=== PATIENT | male | born 1950 | race Caucasian/White ===

== ENCOUNTER → 2016-03-08 | Outpatient (CLI) | payer MEDICARE ==
[2016-03-08 09:22] LABS: HEMATOCRIT 38.4 % (37.9-51.0); HEMOGLOBIN 13.2 g/dL (13.5-17.0); HGB HCT DIFFERENCE 1.2; MEAN CORPUSCULAR HEMOGLOBIN 30.7 pg (27.0-33.4); MEAN CORPUSCULAR HGB CONC 34.3 g/dL (32.0-36.0); MEAN CORPUSCULAR VOLUME 90 fl (80-97); RED CELL DISTRIBUTION WIDTH 14.9 % (11.5-14.0); WHITE BLOOD COUNT 10.8 10^3/uL (4.0-10.5)
[2016-03-08 09:49] LABS: ALANINE AMINOTRANSFERASE 15 U/L (21-72); ALBUMIN 3.3 g/dL (3.5-5.0); ALKALINE PHOSPHATASE 99 U/L (38-126); ANION GAP 11 (5-19); ASPARTATE AMINO TRANSFERASE 15 U/L (17-59); BILIRUBIN,TOTAL 0.3 mg/dL (0.2-1.3); BLOOD UREA NITROGEN 22 mg/dL (7-20); CARBON DIOXIDE 29 mmol/L (22-30); CHLORIDE 100 mmol/L (98-107); CHOLESTEROL 113.33 mg/dL (0-200); CREATININE RESULT 0.72 mg/dL (0.52-1.25); Direct HDL 38 mg/dL (>40); GLUCOSE 109 mg/dL (75-110); POTASSIUM 4.1 mmol/L (3.6-5.0); TOTAL PROTEIN 6.6 g/dL (6.3-8.2); TRIGLYCERIDES 55 mg/dL (<150)
[2016-03-08 10:00] LABS: DIRECT LDL 64 mg/dL (<100)
== END ==
LOC: OD 08:00
PROVIDERS: ATTEND Nurse Practitioner
DX: N39.0 Urinary tract infection, site not specified (principal); Z79.899 Other long term (current) drug therapy; E11.9 Type 2 diabetes mellitus without complications; I69.90 Unspecified sequelae of unspecified cerebrovascular disease; G81.91 Hemiplegia, unspecified affecting right dominant side; I10 Essential (primary) hypertension; E78.00 Pure hypercholesterolemia, unspecified; N40.0 Benign prostatic hyperplasia without lower urinary tract symptoms; K21.9 Gastro-esophageal reflux disease without esophagitis
CPT/HCPCS: 36415; 80053; 80061; 82306; 82607; 83036; 84443; 85027; 87086; 87088; 87186

== ENCOUNTER 2016-05-08 15:47 | Inpatient (IN) | payer MEDICARE, OTHER ==
--- NOTE | 2016-05-08 15:58 | ER Document Report ---
ED Medical Screen (RME) - General Stated Complaint: RIGHT GREAT TOE REDNESS, SWELLING Notes: Patient here because of right great toe infection. Has been seeing a lacquer maker for the last several months, she has working on it but is not getting any better. Referred to the ER. She states wound is draining. Patient is type II diabetic. No reported fevers. Patient states he had an MRI on his foot last week. Thinks the infection is down to the bone. I have greeted and performed a rapid initial assessment of this patient. A comprehensive ED assessment and evaluation of the patient, analysis of test results and completion of the medical decision making process will be conducted by additional ED providers. TRAVEL OUTSIDE OF THE [place] IN LAST 30 DAYS: No - Related Data Allergies/Adverse Reactions: norepinephrine bitartrate [From Levophed Bitartrate] Adverse Reaction ( Intermediate, Verified 05/08/16 15:57) Bradycardia Past Medical History - Past Medical History Cardiac Medical History: Reports: Hx Coronary Artery Disease - HIGH CHOLESTEROL , Hx Hypercholesterolemia, Hx Hypertension Denies: Hx Heart Attack Pulmonary Medical History: Denies: Hx Asthma, Hx Bronchitis, Hx COPD, Hx Pneumonia Neurological Medical History: Reports: Hx Cerebrovascular Accident - 2006, right sided hemiparesis. Denies: Hx Seizures Endocrine Medical History: Reports: Hx Diabetes Mellitus Type 2 GI Medical History: Reports: Hx Gastroesophageal Reflux Disease Musculoskeltal Medical History: Reports Hx Arthritis Psychiatric Medical History: Denies: Hx Depression - patient states he does not have this history Infectious Medical History: Reports: Hx MRSA Past Surgical History: Reports: Hx Orthopedic Surgery - right foot - Immunizations Hx Diphtheria, Pertussis, Tetanus Vaccination: Yes Physical Exam - Vital signs Vitals: Temp Pulse Resp BP Pulse Ox 99.0 F 70 16 110/63 93 05/08/16 15:53 05/08/16 15:53 05/08/16 15:53 05/08/16 15:53 05/08/16 15:53 - General General appearance: Appears well, Alert In distress: None Course - Vital Signs Vital signs: Temp Pulse Resp BP Pulse Ox 99.0 F 70 16 110/63 93 05/08/16 15:53 05/08/16 15:53 05/08/16 15:53 05/08/16 15:53 05/08/16 15:53
[2016-05-08 16:37] LABS: ABSOLUTE BASOPHILS # (AUTO) 0.1 10^3/uL (0.0-0.2); ABSOLUTE EOSINOPHILS # (AUTO) 0.3 10^3/uL (0.0-0.6); ABSOLUTE LYMPHOCYTES (AUTO) 2.3 10^3/uL (0.5-4.7); ABSOLUTE MONOCYTES (AUTO) 0.8 10^3/uL (0.1-1.4); ABSOLUTE NEUT (AUTO) 8.2 10^3/uL (1.7-8.2); BASOPHILS % (AUTO) 0.5 % (0-2); EOSINOPHILS % (AUTO) 2.8 % (0-6); HEMATOCRIT 37.2 % (37.9-51.0); HEMOGLOBIN 12.6 g/dL (13.5-17.0); HGB HCT DIFFERENCE 0.6; LYMPHOCYTES % (AUTO) 19.9 % (13-45); MEAN CORPUSCULAR HEMOGLOBIN 31.1 pg (27.0-33.4); MEAN CORPUSCULAR VOLUME 92 fl (80-97); MONOCYTES % (AUTO) 6.8 % (3-13); RED BLOOD COUNT 4.06 10^6/uL (4.35-5.55); RED CELL DISTRIBUTION WIDTH 14.7 % (11.5-14.0); WHITE BLOOD COUNT 11.7 10^3/uL (4.0-10.5)
[2016-05-08 16:46] LABS: APPEARANCE,URINE CLOUDY; BILIRUBIN,URINE NEGATIVE (NEGATIVE); GLUCOSE, URINE NEGATIVE (NEGATIVE); KETONES,URINE NEGATIVE (NEGATIVE); LEUKOCYTE ESTERASE,URINE LARGE (NEGATIVE); NITRITE,URINE POSITIVE (NEGATIVE); PROTEIN,URINE NEGATIVE (NEGATIVE); URINE SPECIFIC GRAVITY 1.014; UROBILINOGEN,URINE NEGATIVE mg/dL (<2.0)
[2016-05-08 17:00] LABS: ALANINE AMINOTRANSFERASE 29 U/L (21-72); ALKALINE PHOSPHATASE 76 U/L (38-126); ANION GAP 11 (5-19); ASPARTATE AMINO TRANSFERASE 17 U/L (17-59); BILIRUBIN,TOTAL 0.5 mg/dL (0.2-1.3); BLOOD UREA NITROGEN 24 mg/dL (7-20); CALCIUM 9.7 mg/dL (8.4-10.2); CARBON DIOXIDE 26 mmol/L (22-30); CHLORIDE 101 mmol/L (98-107); CREATININE RESULT 0.77 mg/dL (0.52-1.25); GLUCOSE 163 mg/dL (75-110); POTASSIUM 4.6 mmol/L (3.6-5.0); TOTAL PROTEIN 7.2 g/dL (6.3-8.2)
--- NOTE | 2016-05-08 18:42 | PDOC H&P ---
History of Present Illness Admission Date/PCP: 05/08/16 16:30 WIN GALLEGOS NP Patient complains of: Osteomyelitis right big toe. Diabetes History of Present Illness: FRANCHESKA SANTIAGO is a 66 year old male Patient of Dr. Cao sustainable design coordinator at [facility] in [place], was sent as a direct admission for IV antibiotics and amputation of his right big toe Patient was treated without improvement as an outpatient Culture of the wound grew Pseudomonas which was lema sensitive MRI of the right foot showed osteomyelitis of the right big toe Patient was admitted to medical unit for IV antibiotics and surgical consult Past Medical History Cardiac Medical History: Reports: Coronary Artery Disease - HIGH CHOLESTEROL, Hyperlipidema, Hypertension Denies: Myocardial Infarction Pulmonary Medical History: Denies: Asthma, Bronchitis, Chronic Obstructive Pulmonary Disease (COPD), Pneumonia Neurological Medical History: Denies: Seizures Endocrine Medical History: Reports: Diabetes Mellitus Type 2 GI Medical History: Reports: Gastroesophageal Reflux Disease Musculoskeltal Medical History: Reports: Arthritis Psychiatric Medical History: Denies: Depression - patient states he does not have this history Hematology: Denies: Anemia Infectious Medical History: Reports: Methicillin-Resistant Staph Aureus Past Surgical History Past Surgical History: Reports: Orthopedic Surgery - right foot Social History Smoking Status: Former Smoker - Stopped in 1971 Frequency of Alcohol Use: None Hx Recreational Drug Use: No Drugs: None Hx Prescription Drug Abuse: No - Advance Directive Resuscitation Status: Do Not Resuscitate Surrogate healthcare decision maker:: His daughter Carolann Family History Family History: Reviewed & Not Pertinent Parental Family History Reviewed: Yes Children Family History Reviewed: Yes Sibling(s) Family History Reviewed.: Yes Medication/Allergy Allergies/Adverse Reactions: norepinephrine bitartrate [From Levophed Bitartrate] Adverse Reaction ( Intermediate, Verified 05/08/16 15:57) Bradycardia Review of Systems Constitutional: ABSENT: chills, fever(s), headache(s), weight gain, weight loss Eyes: ABSENT: visual disturbances Ears: ABSENT: hearing changes Cardiovascular: ABSENT: chest pain, dyspnea on exertion, edema, orthropnea, palpitations Respiratory: ABSENT: cough, hemoptysis Gastrointestinal: ABSENT: abdominal pain, constipation, diarrhea, hematemesis, hematochezia, nausea, vomiting Genitourinary: ABSENT: dysuria, hematuria Musculoskeletal: PRESENT: other - Redness of the right foot Ulcerated area under the right draining pus. ABSENT: joint swelling Integumentary: ABSENT: rash, wounds Neurological: ABSENT: abnormal gait, abnormal speech, confusion, dizziness, focal weakness, syncope Psychiatric: ABSENT: anxiety, depression, homidical ideation, suicidal ideation Endocrine: ABSENT: cold intolerance, heat intolerance, polydipsia, polyuria Hematologic/Lymphatic: ABSENT: easy bleeding, easy bruising Physical Exam Vital Signs: Temp Pulse Resp BP Pulse Ox 99.0 F 70 16 110/63 93 05/08/16 15:53 05/08/16 15:53 05/08/16 15:53 05/08/16 15:53 05/08/16 15:53 General appearance: PRESENT: no acute distress, cooperative, thin, other - Pale looking Head exam: PRESENT: atraumatic, normocephalic Eye exam: PRESENT: conjunctiva pink, EOMI, PERRLA. ABSENT: scleral icterus Ear exam: PRESENT: normal external ear exam Mouth exam: PRESENT: moist, tongue midline Neck exam: ABSENT: carotid bruit, JVD, lymphadenopathy, thyromegaly Respiratory exam: PRESENT: clear to auscultation elias. ABSENT: rales, rhonchi, wheezes Cardiovascular exam: PRESENT: RRR. ABSENT: diastolic murmur, rubs, systolic murmur Pulses: PRESENT: normal dorsalis pedis pul Vascular exam: PRESENT: normal capillary refill GI/Abdominal exam: PRESENT: normal bowel sounds, soft. ABSENT: distended, guarding, mass, organolmegaly, rebound, tenderness Rectal exam: PRESENT: deferred Extremities exam: PRESENT: full ROM, other - Right big toe Small ulcerated area on the volar aspect of the distal phalanx Redness of the foot dorsum of the foot and toes Skin is warm to touch No lymphangitic streaks. ABSENT: calf tenderness, clubbing, pedal edema Neurological exam: PRESENT: alert, awake, oriented to person, oriented to place , oriented to time, oriented to situation, CN II-XII grossly intact. ABSENT: motor sensory deficit Psychiatric exam: PRESENT: appropriate affect, normal mood. ABSENT: homicidal ideation, suicidal ideation Skin exam: PRESENT: dry, intact, warm. ABSENT: cyanosis, rash Results Laboratory Results: 05/08/16 05/08/16 05/08/16 16:00 16:00 16:05 WBC 11.7 H RBC 4.06 L Hgb 12.6 L Hct 37.2 L RDW 14.7 H BUN 24 H Glucose 163 H Urine Nitrite POSITIVE H Ur Leukocyte Esterase LARGE H Urine Ascorbic Acid 40 H Assessment & Plan - Diagnosis (1) Osteomyelitis Qualifiers: Osteomyelitis location: foot Laterality: right Is this a current diagnosis for this admission?: Yes (2) Cellulitis Qualifiers: Laterality: right Is this a current diagnosis for this admission?: Yes (3) Diabetic foot ulcer Qualifiers: Diabetic foot ulcer location: unspecified part of foot Is this a current diagnosis for this admission?: Yes (4) Type 2 diabetes mellitus with diabetic autonomic (poly)neuropathy Qualifiers: Diabetes mellitus senior care insulin use: without long term acute care registered nurse use Qualified Code(s): E11.43 - Type 2 diabetes mellitus with diabetic autonomic ( poly)neuropathy Is this a current diagnosis for this admission?: Yes - Time Time Spent with patient: Review of the culture of the ulcer showed Pseudomonas that was pansensitive We will start the patient on Zosyn IV Surgical evaluation was obtained Dr. Cage evaluated the patient Amputation of the big toe will be scheduled for tomorrow morning Patient will be placed on Accu-Chek before meals at bedtime and insulin coverage We initiated IV fluids as well EKG and chest x-ray were ordered Time Spent: 50 to 70 Minutes - Inpatient Certification Based on my medical assessment, after consideration of the patient's comorbidities, presenting symptoms, or acuity I expect that the services needed warrant INPATIENT care.: Yes I certify that my determination is in accordance with my understanding of Medicare's requirements for reasonable and necessary INPATIENT services [42 CFR 412.3e].: Yes Medical Necessity: Failure to Improve With Outpatient Therapy, Need for IV Antibiotics, Need for Surgery
--- NOTE | 2016-05-08 19:48 | CONSULTATION REPORT E ---
Consultation Report NAME: FRANCHESKA SANTIAGO : 1950 AGE: 66Y DATE: 05/08/2016 405 A TO: FABIO MARINELLI M.D. FROM: TAYLOR HUANG M.D. Requesting Physician REASON FOR REFERRAL: Infection of the right foot, first digit. HISTORY OF PRESENT ILLNESS: The patient is a 66-year-old male with diabetes and hypertension present with a 3-month history of a nonhealing wound on the right foot first digit. He was treated for Pseudomonas infection being on Levaquin. He recently had an MRI which shows osteomyelitis in the first digit, first and second phalanges. There is also possible osteomyelitis in the second digit, although he has no wounds being present here. He is ambulatory. He has had a previous infection in the left foot first digit undergoing amputation in the past. He was seen today by the crocodile farmer and because of increasing cellulitis was referred to the emergency room. PAST SURGICAL HISTORY: Left foot first digit amputation. PAST MEDICAL HISTORY: Medical problems: 1. Diabetes. 2. Hypertension. 3. Hyperlipidemia. 4. Arthritis. 5. Gastroesophageal reflux disease. MEDICATIONS: The patient's family will bring in the medication list. ALLERGIES: None. SOCIAL HISTORY: The patient has a caregiver. HABITS: The patient quit smoking in the past, along with alcohol. FAMILY HISTORY: Father with history of cancer of the palate of the mouth. REVIEW OF SYSTEMS: MUSCULOSKELETAL: Infection of the right foot first digit along with discomfort. NEUROLOGICAL: Peripheral neuropathy. GASTROINTESTINAL: Gastroesophageal reflux disease. A 12-point review of systems was reviewed with pertinent positives discussed. PHYSICAL EXAMINATION: VITAL SIGNS: Temperature is 97.6. Pulse is 63. GENERAL: The patient is lying in bed. He is not in any distress. HEENT: Eyes nonicteric. NECK: No lymphadenopathy. HEART: Regular. LUNGS: Clear. ABDOMEN: Soft, nontender. EXTREMITIES: Right foot first digit: He has a nonhealing wound being present with cellulitis extending into the forefoot. The rest of the digits appear to be without abnormality. He has decreased sensation, although he is able to feel pain in the first digit. He has a palpable dorsalis pedis and posterior tibial artery. He does appear to have motor function, although slightly decreased. He has the amputation of the left foot first digit. NEUROLOGICAL: Peripheral neuropathy. He is awake, alert, cooperative, and appears to answer questions fully. DIAGNOSTIC DATA: White blood cell count 11.7. ASSESSMENT: 1. Infection of the right foot first digit, having osteomyelitis and overlying cellulitis. I recommend he undergo amputation of the first digit, leaving the wound open. He will need to come back to surgery several days later once the cellulitis has resolved in order to finally close the wound. The risks and possible complications of these procedures have been discussed with him. He accepts the risk and wishes to proceed. 2. Diabetes, managed by the hospitalist. PLAN: 1. IV antibiotics. He has grown out Pseudomonas and recommend Zosyn at the current time. 2. Open amputation of the right foot first digit on 05/09/2016. DICTATING PHYSICIAN: FABIO MARINELLI M.D. [id number] PHY#: [id number] ID: [id number] JOB#: [id number] ACCT: [id number] cc:FABIO MARINELLI M.D. >
[2016-05-08] MEDS: PIPERACILLIN SODIUM/TAZOBACTAM 3.375 GM in NORMAL SALINE 100 ML IV SCH (22:20)
[2016-05-08] MEDS: OXYCODONE-ACETAMINOPHEN 5-325 MG TABLET PO PRN (22:20)
[2016-05-08] MEDS: NORMAL SALINE 1000 ML 1,000 ML IV PRN (22:20)
[2016-05-09] MEDS: PIPERACILLIN SODIUM/TAZOBACTAM 3.375 GM in NORMAL SALINE 100 ML IV SCH ×4 (02:14→20:26)
[2016-05-09] MEDS: OXYCODONE-ACETAMINOPHEN 5-325 MG TABLET PO PRN ×2 (03:24→22:45)
[2016-05-09 05:13] LABS: PROTHROMBIN TIME 14.4 SEC (11.4-15.4)
--- NOTE | 2016-05-09 07:53 | EKG REPORT ---
SEVERITY:- ABNORMAL ECG - SINUS RHYTHM MULTIFORM VENTRICULAR PREMATURE COMPLEXES : Confirmed by: Tayla Interiano MD 09-May-2016 07:52:31
[2016-05-09] MEDS: NORMAL SALINE 1000 ML 1,000 ML IV PRN (13:45)
[2016-05-09] MEDS ORDERED: MIDAZOLAM 2 MG/2 ML INJ ONE (17:21)
[2016-05-09] MEDS ORDERED: ACETAMINOPHEN 100 ML IV ONE (17:21)
[2016-05-09] MEDS ORDERED: PROPOFOL INJ 200 MG/20 ML VIAL IV ONE (17:21)
[2016-05-09] MEDS ORDERED: LIDOCAINE 1%/EPINEPHRINE INJ 20 ML VIAL ONE (18:01)
[2016-05-09] MEDS ORDERED: FENTANYL CITRATE INJ/PF 100 MCG/2 ML AMPUL ONE (18:05)
--- NOTE | 2016-05-09 18:17 | PDOC PROGRESS REPORT ---
Subjective Progress Note for:: 05/09/16 Subjective:: Patient is doing well He has minimal pain in his lower extremity The redness on the foot has decreased He did change his CODE STATUS for full code He is scheduled for surgery today Physical Exam Vital Signs: Temp Pulse Resp BP Pulse Ox 98.2 F 64 16 122/38 L 99 05/09/16 10:49 05/09/16 10:49 05/09/16 10:49 05/09/16 10:49 05/09/16 07:29 Intake & Output 05/08/16 05/09/16 05/10/16 00:59 00:59 00:59 Intake Total 480 1100 Output Total 2 Balance 478 1100 Weight 109.8 kg 113 kg General appearance: PRESENT: no acute distress Head exam: PRESENT: atraumatic, normocephalic Eye exam: PRESENT: conjunctiva pink, EOMI, PERRLA. ABSENT: scleral icterus Neck exam: ABSENT: carotid bruit, JVD, lymphadenopathy, thyromegaly Respiratory exam: PRESENT: clear to auscultation elias. ABSENT: rales, rhonchi, wheezes Cardiovascular exam: PRESENT: RRR. ABSENT: diastolic murmur, rubs, systolic murmur Pulses: PRESENT: normal dorsalis pedis pul GI/Abdominal exam: PRESENT: normal bowel sounds, soft. ABSENT: distended, guarding, mass, organolmegaly, rebound, tenderness Extremities exam: PRESENT: other - Right foot decreased redness Redness confined to the PICU after minimal drainage from the ulceration Results Impressions: Chest X-Ray 05/09/16 06:00 IMPRESSION: NO ACUTE RADIOGRAPHIC FINDING IN THE CHEST. Assessment & Plan - Diagnosis (1) Osteomyelitis Qualifiers: Osteomyelitis location: foot Laterality: right Is this a current diagnosis for this admission?: Yes (2) Cellulitis Qualifiers: Laterality: right Is this a current diagnosis for this admission?: Yes (3) Diabetic foot ulcer Qualifiers: Diabetic foot ulcer location: unspecified part of foot Is this a current diagnosis for this admission?: Yes (4) Type 2 diabetes mellitus with diabetic autonomic (poly)neuropathy Qualifiers: Diabetes mellitus [facility] insulin use: without terminal clerk use Qualified Code(s): E11.43 - Type 2 diabetes mellitus with diabetic autonomic ( poly)neuropathy Is this a current diagnosis for this admission?: Yes - Time Time Spent with patient: Continue same management ; patient is scheduled for toe amputation today Time Spent with patient: 15-24 minutes
--- NOTE | 2016-05-09 19:33 | OPERATIVE REPORT E ---
Operative Report NAME: FRANCHESKA SANTIAGO : 1950 AGE: 66Y DATE OF SURGERY: 05/09/2016 ROOM: 405 PREOPERATIVE DIAGNOSIS: Nonhealing ulcer with infection, right foot, 1st digit, plantar surface with osteomyelitis. POSTOPERATIVE DIAGNOSIS: Nonhealing ulcer with infection, right foot, 1st digit, plantar surface with osteomyelitis. OPERATION: Amputation of right foot, 1st digit. SURGEON: FABIO MARINELLI M.D. ANESTHESIA: IV sedation with local. INDICATION FOR PROCEDURE: The patient is a 66-year-old male with diabetes who presents with a nonhealing wound on the right foot, 1st digit, that has been followed by podiatry. He now has developed cellulitis in the toe along with elevated white blood cell count. Recent MRI of the foot showed osteomyelitis in the bone. Cultures had grown out Pseudomonas which he has been treated adequately with IV antibiotics currently. The cellulitis has improved significantly where the amputation will be able to be performed with skin closure across noninfected skin. FINDINGS OF PROCEDURE: The patient underwent amputation of the right foot 1st digit. He had osteomyelitis in the 1st and proximal portion of the proximal digit right foot. He underwent amputation across the proximal portion of the proximal phalanx, right foot 1st digit. PROCEDURE: After informed consent was obtained, the patient was taken to the operating room and placed in a supine position. IV sedation was given. The patient's right foot was then prepped and draped in the usual sterile fashion. A digital block was then performed with 1% lidocaine with epinephrine. A fishmouth incision was then made in the skin across the proximal phalanx with the skin uninvolved with cellulitis. The incision was then deepened down to the bone using an elevator. The surrounding tissue was then removed from the bone and a bone cutter was then used to amputate the proximal phalanx proximally. A rongeur was then used to remove any rough edges. The wound was irrigated. Hemostasis was obtained using electrocautery. The anterior and posterior flaps were then brought together in the mid portion using an interrupted a #3-0 Vicryl suture in the subcutaneous tissue. The skin incisions were closed using interrupted #3-0 nylon vertical mattress sutures. A dry dressing was then applied. The patient was then awakened and taken from the procedure room in stable condition. ESTIMATED BLOOD LOSS: Less than 5 cc. COMPLICATIONS: None. CONDITION: The patient at the end of the procedure was stable. SPECIMENS: Right foot 1st digit. CLASSIFICATION OF WOUND: Clean-contaminated. DICTATING PHYSICIAN: FABIO MARINELLI M.D. [id number] PHY#: [id number] ID: [id number] JOB#: [id number] ACCT: [id number] cc:FABIO MARINELLI M.D. > MTDD
[2016-05-10] MEDS: PIPERACILLIN SODIUM/TAZOBACTAM 3.375 GM in NORMAL SALINE 100 ML IV SCH ×4 (02:46→21:26)
[2016-05-10] MEDS: OXYCODONE-ACETAMINOPHEN 5-325 MG TABLET PO PRN ×2 (08:50→13:55)
--- NOTE | 2016-05-10 11:37 | PDOC PROGRESS REPORT ---
Subjective Progress Note for:: 05/10/16 Subjective:: No complaints. Physical Exam Vital Signs: Temp Pulse Resp BP Pulse Ox 98.4 F 25 L 20 129/45 H 98 05/10/16 07:30 05/10/16 07:30 05/10/16 07:30 05/10/16 07:30 05/10/16 07:30 Intake & Output 05/09/16 05/10/16 05/11/16 06:59 06:59 06:59 Intake Total 1580 1740 750 Output Total 2 212 Balance 1578 1528 750 Weight 113 kg 112.8 kg Extremities exam: PRESENT: other - Right great toe amputation site clean dry and intact but there is diffuse erythema in the surrounding area. There is no drainage. There is no fluctuance. Results Impressions: Chest X-Ray 05/09/16 06:00 IMPRESSION: NO ACUTE RADIOGRAPHIC FINDING IN THE CHEST. Assessment & Plan - Diagnosis (1) Diabetic foot ulcer Qualifiers: Diabetic foot ulcer location: unspecified part of foot Is this a current diagnosis for this admission?: Yes (2) Osteomyelitis Qualifiers: Osteomyelitis location: foot Laterality: right Is this a current diagnosis for this admission?: YesPlan: Status post right great toe amputation. There is surrounding erythema but the wound is clean dry and intact. Will continue IV antibiotics. Keep an eye on the wound.
[2016-05-10] MEDS: GABAPENTIN 300 MG CAPSULE PO SCH ×2 (13:56→21:26)
--- NOTE | 2016-05-10 15:39 | PDOC PROGRESS REPORT ---
Subjective Progress Note for:: 05/10/16 - he is to be taken down to the discharge planning 16 awaiting her arrival Subjective:: Patient is complaining of pain in his right foot right leg No fever no chills No nausea no vomiting Physical Exam Vital Signs: Temp Pulse Resp BP Pulse Ox 98.4 F 25 L 20 129/45 H 98 05/10/16 07:30 05/10/16 07:30 05/10/16 07:30 05/10/16 07:30 05/10/16 07:30 Intake & Output 05/09/16 05/10/16 05/11/16 00:59 00:59 00:59 Intake Total 480 2460 1130 Output Total 2 211 1 Balance 478 2249 1129 Weight 109.8 kg 112.8 kg 112.8 kg General appearance: PRESENT: no acute distress, well-developed, well-nourished, other - Looks pale Head exam: PRESENT: atraumatic, normocephalic Eye exam: PRESENT: conjunctiva pink, EOMI, PERRLA. ABSENT: scleral icterus Ear exam: PRESENT: normal external ear exam Mouth exam: PRESENT: moist, tongue midline Neck exam: ABSENT: carotid bruit, JVD, lymphadenopathy, thyromegaly Respiratory exam: PRESENT: clear to auscultation elias. ABSENT: rales, rhonchi, wheezes Cardiovascular exam: PRESENT: RRR. ABSENT: diastolic murmur, rubs, systolic murmur Pulses: PRESENT: normal dorsalis pedis pul Vascular exam: PRESENT: normal capillary refill GI/Abdominal exam: PRESENT: normal bowel sounds, soft. ABSENT: distended, guarding, mass, organolmegaly, rebound, tenderness Rectal exam: PRESENT: deferred Extremities exam: PRESENT: full ROM. ABSENT: calf tenderness, clubbing, pedal edema Neurological exam: PRESENT: alert, awake, oriented to person, oriented to place , oriented to time, oriented to situation, CN II-XII grossly intact. ABSENT: motor sensory deficit Psychiatric exam: PRESENT: appropriate affect, normal mood. ABSENT: homicidal ideation, suicidal ideation Skin exam: PRESENT: dry, intact, warm. ABSENT: cyanosis, rash Results Impressions: Chest X-Ray 05/09/16 06:00 IMPRESSION: NO ACUTE RADIOGRAPHIC FINDING IN THE CHEST. Assessment & Plan - Diagnosis (1) Osteomyelitis Qualifiers: Osteomyelitis location: foot Laterality: right Is this a current diagnosis for this admission?: Yes (2) Cellulitis Qualifiers: Laterality: right Is this a current diagnosis for this admission?: Yes (3) Diabetic foot ulcer Qualifiers: Diabetic foot ulcer location: unspecified part of foot Is this a current diagnosis for this admission?: Yes (4) Type 2 diabetes mellitus with diabetic autonomic (poly)neuropathy Qualifiers: Diabetes mellitus prison insulin use: without exterminator termite use Qualified Code(s): E11.43 - Type 2 diabetes mellitus with diabetic autonomic ( poly)neuropathy Is this a current diagnosis for this admission?: Yes - Time Time Spent with patient: Patient is status post amputation of the big toe His course so far is uneventful Continue the present management Increase pain medications we will give intermittent doses of morphine Time Spent with patient: 25-34 minutes
[2016-05-10] MEDS: TAMSULOSIN HCL 0.4 MG CAP.SR.24H PO SCH (17:14)
[2016-05-10] MEDS: ASPIRIN 81 MG TABLET, CHEWABLE PO SCH (21:26)
[2016-05-10] MEDS: ATORVASTATIN CALCIUM 20 MG TABLET PO SCH (21:26)
[2016-05-10] MEDS: HYDROCODONE/ACETAMINOPHEN 7.5-325 MG TABLET PO PRN (21:30)
[2016-05-11] MEDS: PIPERACILLIN SODIUM/TAZOBACTAM 3.375 GM in NORMAL SALINE 100 ML IV SCH ×3 (04:19→14:53)
[2016-05-11] MEDS: GABAPENTIN 300 MG CAPSULE PO SCH ×3 (05:34→22:23)
[2016-05-11] MEDS: LANSOPRAZOLE 15 MG TAB.RAP.DR PO SCH (05:34)
[2016-05-11] MEDS: LISINOPRIL 10 MG TABLET PO SCH (10:27)
[2016-05-11] MEDS: POLYETHYLENE GLYCOL 3350 POWDER 17 GM/1 PACKET PO SCH (10:27)
[2016-05-11] MEDS: FERROUS SULFATE 325 MG TABLET PO SCH (10:33)
--- NOTE | 2016-05-11 11:48 | PROGRESS NOTE E ---
Progress Note NAME: FRANCHESKA SANTIAGO : 1950 AGE: 66Y DATE: 05/11/2016 ROOM: 405 Right great toe amputation was examined. It was noted to be more erythematous according to the nurse. Denies any pains or tenderness. There is erythema surrounding the wound extending to about an inch and a half surrounding it. The wound itself looks clean and dry and there is fairly good capillary refill around it. However, there is a small area of duskiness right on top of the amputated bone. Because of this, I removed all of the sutures to see if we can prevent a full ischemia or infection. All the sutures were removed and the wound appeared to be intact. A small amount of bloody drainage on one of the suture sites, which appears to be a good sign. I told the nurses to keep the wound dry and avoid pressure on the right heel to prevent any pressure sore developing. I was able to feel a pulse on a right posterior tibial artery and the foot itself is nice and warm. DICTATING PHYSICIAN: KRISTOFER LOPEZ M.D. [id number] PHY#: [id number] ID: [id number] JOB#: [id number] ACCT: [id number] cc: >
--- NOTE | 2016-05-11 15:57 | PDOC PROGRESS REPORT ---
Subjective Progress Note for:: 05/11/16 Subjective:: Patient is feeling well but the right big toe is now extremely red and swollen He has no severe pain no fever no chills He remains hemodynamically stable Physical Exam Vital Signs: Temp Pulse Resp BP Pulse Ox 97.4 F 56 L 16 127/62 H 97 05/11/16 10:00 05/11/16 10:00 05/11/16 10:00 05/11/16 10:00 05/11/16 10:00 Intake & Output 05/10/16 05/11/16 05/12/16 00:59 00:59 00:59 Intake Total 2460 2090 400 Output Total 211 1 Balance 2249 2089 400 Weight 112.8 kg 112.8 kg 113.5 kg General appearance: PRESENT: no acute distress, well-developed, well-nourished Head exam: PRESENT: atraumatic, normocephalic Eye exam: PRESENT: conjunctiva pink, EOMI, PERRLA. ABSENT: scleral icterus Ear exam: PRESENT: normal external ear exam Mouth exam: PRESENT: moist, tongue midline Neck exam: ABSENT: carotid bruit, JVD, lymphadenopathy, thyromegaly Respiratory exam: PRESENT: clear to auscultation elias. ABSENT: rales, rhonchi, wheezes Cardiovascular exam: PRESENT: RRR. ABSENT: diastolic murmur, rubs, systolic murmur Pulses: PRESENT: normal dorsalis pedis pul Vascular exam: PRESENT: normal capillary refill GI/Abdominal exam: PRESENT: normal bowel sounds, soft. ABSENT: distended, guarding, mass, organolmegaly, rebound, tenderness Rectal exam: PRESENT: deferred Extremities exam: PRESENT: full ROM, other - Right big toe swelling redness extending the foot no drainage. ABSENT: calf tenderness, clubbing, pedal edema Neurological exam: PRESENT: alert, awake, oriented to person, oriented to place , oriented to time, oriented to situation, CN II-XII grossly intact. ABSENT: motor sensory deficit Psychiatric exam: PRESENT: appropriate affect, normal mood. ABSENT: homicidal ideation, suicidal ideation Skin exam: PRESENT: dry, intact, warm. ABSENT: cyanosis, rash Results Laboratory Results: 05/09/16 23:40 Nasophary ([facility] Only) MRSA Surveillance Culture - Final NO MRSA RECOVERED 05/09/16 03:30 Clean Catch Midstream Urine Culture - Final Escherichia Coli Impressions: Chest X-Ray 05/09/16 06:00 IMPRESSION: NO ACUTE RADIOGRAPHIC FINDING IN THE CHEST. Assessment & Plan - Diagnosis (1) Osteomyelitis Qualifiers: Osteomyelitis location: foot Laterality: right Is this a current diagnosis for this admission?: Yes (2) Cellulitis Qualifiers: Laterality: right Is this a current diagnosis for this admission?: Yes (3) Diabetic foot ulcer Qualifiers: Diabetic foot ulcer location: unspecified part of foot Is this a current diagnosis for this admission?: Yes (4) Type 2 diabetes mellitus with diabetic autonomic (poly)neuropathy Qualifiers: Diabetes mellitus dictating machine transcriber insulin use: without alf use Qualified Code(s): E11.43 - Type 2 diabetes mellitus with diabetic autonomic ( poly)neuropathy Is this a current diagnosis for this admission?: Yes - Time Time Spent with patient: Patient appears a little worse postoperatively We will add vancomycin to the Zosyn to broaden the spectrum of antibiotics Continue otherwise prior management Time Spent with patient: 25-34 minutes
[2016-05-11] MEDS ORDERED: VANCOMYCIN HCL 0 MG in DEXTROSE 5%-WATER 250 ML IV NR (16:00)
[2016-05-11 17:26] LABS: CREATININE RESULT 0.79 mg/dL (0.52-1.25)
[2016-05-11] MEDS: TAMSULOSIN HCL 0.4 MG CAP.SR.24H PO SCH (17:57)
[2016-05-11] MEDS: ERTAPENEM SODIUM 1 GM in NORMAL SALINE 50 ML IV SCH (17:57)
[2016-05-11] MEDS: VANCOMYCIN HCL 1,500 MG in DEXTROSE 5%-WATER 250 ML IV SCH (20:44)
[2016-05-11] MEDS: ATORVASTATIN CALCIUM 20 MG TABLET PO SCH (22:23)
[2016-05-11] MEDS: ASPIRIN 81 MG TABLET, CHEWABLE PO SCH (22:23)
[2016-05-12] MEDS: LANSOPRAZOLE 15 MG TAB.RAP.DR PO SCH (05:22)
[2016-05-12] MEDS: GABAPENTIN 300 MG CAPSULE PO SCH ×3 (05:22→22:43)
[2016-05-12] MEDS: VANCOMYCIN HCL 1,500 MG in DEXTROSE 5%-WATER 250 ML IV SCH ×2 (08:30→20:28)
[2016-05-12] MEDS: FERROUS SULFATE 325 MG TABLET PO SCH (10:42)
[2016-05-12] MEDS: LISINOPRIL 10 MG TABLET PO SCH (10:43)
[2016-05-12] MEDS: POLYETHYLENE GLYCOL 3350 POWDER 17 GM/1 PACKET PO SCH (10:44)
--- NOTE | 2016-05-12 11:53 | PDOC PROGRESS REPORT ---
Subjective Progress Note for:: 05/12/16 Subjective:: No complaints Physical Exam Vital Signs: Temp Pulse Resp BP Pulse Ox 97.9 F 60 19 117/44 L 99 05/12/16 07:39 05/11/16 23:30 05/12/16 07:39 05/12/16 07:39 05/12/16 07:39 Intake & Output 05/11/16 05/12/16 05/13/16 06:59 06:59 06:59 Intake Total 2110 1040 Balance 2110 1040 Weight 113.5 kg 114.5 kg General appearance: PRESENT: no acute distress Musculoskeletal exam: PRESENT: other - Foot examined. Some dried blood in the first web space. A ascending cellulitis. No edema, no foul smell noted drainage. Bounding dorsalis pedis pulse. Results Laboratory Results: 05/11/16 16:50 05/11/16 16:50 Creatinine 0.79 Est GFR ( Amer) > 60 Est GFR (Non-Af Amer) > 60 05/09/16 23:40 Nasophary ([facility] Only) MRSA Surveillance Culture - Final NO MRSA RECOVERED 05/09/16 03:30 Clean Catch Midstream Urine Culture - Final Escherichia Coli Impressions: Chest X-Ray 05/09/16 06:00 IMPRESSION: NO ACUTE RADIOGRAPHIC FINDING IN THE CHEST. Assessment & Plan - Diagnosis (1) Diabetic foot ulcer Qualifiers: Diabetic foot ulcer location: unspecified part of foot Is this a current diagnosis for this admission?: YesPlan: Patient is now 3 days status post right great toe amputation for osteomyelitis with clinically improved condition of distal foot; no indication for further intervention at this time. Continue Intravenous antibiotics We'll keep foot elevated today, then get him up with surgical sandal tomorrow.
--- NOTE | 2016-05-12 12:33 | PDOC PROGRESS REPORT ---
Subjective Progress Note for:: 05/12/16 Subjective:: Patient has no specific complaints Is a right toe is looking better this morning with decreased redness and swelling No fever no chills Physical Exam Vital Signs: Temp Pulse Resp BP Pulse Ox 97.9 F 60 19 117/44 L 99 05/12/16 07:39 05/11/16 23:30 05/12/16 07:39 05/12/16 07:39 05/12/16 07:39 Intake & Output 05/11/16 05/12/16 05/13/16 00:59 00:59 00:59 Intake Total 2089 144 Output Total Balance 2088 144 Weight 112.8 kg 113.5 kg 114.5 kg General appearance: PRESENT: no acute distress, well-developed, well-nourished Head exam: PRESENT: atraumatic, normocephalic Eye exam: PRESENT: conjunctiva pink, EOMI, PERRLA. ABSENT: scleral icterus Ear exam: PRESENT: normal external ear exam Mouth exam: PRESENT: moist, tongue midline Neck exam: ABSENT: carotid bruit, JVD, lymphadenopathy, thyromegaly Respiratory exam: PRESENT: clear to auscultation elias. ABSENT: rales, rhonchi, wheezes Cardiovascular exam: PRESENT: RRR. ABSENT: diastolic murmur, rubs, systolic murmur Pulses: PRESENT: normal dorsalis pedis pul Vascular exam: PRESENT: normal capillary refill GI/Abdominal exam: PRESENT: normal bowel sounds, soft. ABSENT: distended, guarding, mass, organolmegaly, rebound, tenderness Rectal exam: PRESENT: deferred Extremities exam: PRESENT: full ROM, other - Right foot Decrease swelling and redness of the right big toe No purulent drainage. ABSENT: calf tenderness, clubbing, pedal edema Neurological exam: PRESENT: alert, awake, oriented to person, oriented to place , oriented to time, oriented to situation, CN II-XII grossly intact. ABSENT: motor sensory deficit Psychiatric exam: PRESENT: appropriate affect, normal mood. ABSENT: homicidal ideation, suicidal ideation Skin exam: PRESENT: dry, intact, warm. ABSENT: cyanosis, rash Results Laboratory Results: 05/11/16 16:50 05/11/16 16:50 Creatinine 0.79 Est GFR ( Amer) > 60 Est GFR (Non-Af Amer) > 60 05/09/16 23:40 Nasophary ([facility] Only) MRSA Surveillance Culture - Final NO MRSA RECOVERED 05/09/16 03:30 Clean Catch Midstream Urine Culture - Final Escherichia Coli Impressions: Chest X-Ray 05/09/16 06:00 IMPRESSION: NO ACUTE RADIOGRAPHIC FINDING IN THE CHEST. Assessment & Plan - Diagnosis (1) Osteomyelitis Qualifiers: Osteomyelitis location: foot Laterality: right Is this a current diagnosis for this admission?: Yes (2) Cellulitis Qualifiers: Laterality: right Is this a current diagnosis for this admission?: Yes (3) Diabetic foot ulcer Qualifiers: Diabetic foot ulcer location: unspecified part of foot Is this a current diagnosis for this admission?: Yes (4) Type 2 diabetes mellitus with diabetic autonomic (poly)neuropathy Qualifiers: Diabetes mellitus marine oil terminal superintendent insulin use: without fci use Qualified Code(s): E11.43 - Type 2 diabetes mellitus with diabetic autonomic ( poly)neuropathy Is this a current diagnosis for this admission?: Yes - Time Time Spent with patient: 25-34 minutes - Continue the present management
[2016-05-12] MEDS: TAMSULOSIN HCL 0.4 MG CAP.SR.24H PO SCH (18:12)
[2016-05-12] MEDS: ERTAPENEM SODIUM 1 GM in NORMAL SALINE 50 ML IV SCH (18:12)
[2016-05-12] MEDS: ASPIRIN 81 MG TABLET, CHEWABLE PO SCH (22:43)
[2016-05-12] MEDS: ATORVASTATIN CALCIUM 20 MG TABLET PO SCH (22:43)
[2016-05-12] MEDS: OXYCODONE-ACETAMINOPHEN 5-325 MG TABLET PO PRN (22:44)
[2016-05-13] MEDS: LANSOPRAZOLE 15 MG TAB.RAP.DR PO SCH (05:32)
[2016-05-13] MEDS: GABAPENTIN 300 MG CAPSULE PO SCH ×3 (05:32→22:08)
[2016-05-13 08:12] LABS: CREATININE RESULT 0.59 mg/dL (0.52-1.25)
[2016-05-13] MEDS: VANCOMYCIN HCL 1,500 MG in DEXTROSE 5%-WATER 250 ML IV SCH ×2 (10:32→21:02)
[2016-05-13] MEDS: POLYETHYLENE GLYCOL 3350 POWDER 17 GM/1 PACKET PO SCH (10:32)
[2016-05-13] MEDS: FERROUS SULFATE 325 MG TABLET PO SCH (10:33)
[2016-05-13] MEDS: LISINOPRIL 10 MG TABLET PO SCH (10:33)
--- NOTE | 2016-05-13 11:21 | PDOC PROGRESS REPORT ---
Subjective Progress Note for:: 05/13/16 Subjective:: Patient has no complaints; he is sleeping. Physical Exam Vital Signs: Temp Pulse Resp BP Pulse Ox 98.2 F 58 L 19 129/64 H 98 05/13/16 07:58 05/13/16 07:58 05/13/16 07:58 05/13/16 07:58 05/13/16 07:58 Intake & Output 05/12/16 05/13/16 05/14/16 06:59 06:59 06:59 Intake Total 1040 1590 Balance 1040 1590 Weight 114.5 kg 114.5 kg General appearance: PRESENT: no acute distress Extremities exam: PRESENT: other - Foot examined; wound remains approximated minimal edema to dorsal and plantar skin flaps. No quoc cellulitis, drainage, foul smell Results Laboratory Results: 05/13/16 07:37 05/13/16 07:37 Creatinine 0.59 Est GFR ( Amer) > 60 Est GFR (Non-Af Amer) > 60 Impressions: Chest X-Ray 05/09/16 06:00 IMPRESSION: NO ACUTE RADIOGRAPHIC FINDING IN THE CHEST. Assessment & Plan - Diagnosis (1) Diabetic foot ulcer Qualifiers: Diabetic foot ulcer location: unspecified part of foot Is this a current diagnosis for this admission?: YesPlan: 1. Patient is 4 days status post right great toe amputation satisfactory healing of wound with sternal sutures removed. 2. I have suggested 24-48 hours of intravenous antibiotics, then transferring to by mouth antibiotics which can be continued on an outpatient basis. 3. Patient can follow up with also surgical clinic in 1-2 weeks. Use a surgical sandal to assist with transfers. Local wound care consisted of a Adaptic or allevyn dressing
[2016-05-13] MEDS: OXYCODONE-ACETAMINOPHEN 5-325 MG TABLET PO PRN (15:12)
[2016-05-13] MEDS: TAMSULOSIN HCL 0.4 MG CAP.SR.24H PO SCH (17:24)
[2016-05-13] MEDS: ERTAPENEM SODIUM 1 GM in NORMAL SALINE 50 ML IV SCH (17:24)
--- NOTE | 2016-05-13 17:51 | PDOC PROGRESS REPORT ---
Subjective Progress Note for:: 05/13/16 Subjective:: Patient is quite stable no fever no chills ; his big toe is looking somewhat better still erythematous Physical Exam Vital Signs: Temp Pulse Resp BP Pulse Ox 97.9 F 63 17 118/57 L 98 05/13/16 15:08 05/13/16 15:08 05/13/16 15:08 05/13/16 15:08 05/13/16 15:08 Intake & Output 05/12/16 05/13/16 05/14/16 00:59 00:59 00:59 Intake Total 1440 1010 1720 Balance 1440 1010 1720 Weight 113.5 kg 114.5 kg 114.5 kg General appearance: PRESENT: no acute distress, well-developed, well-nourished Head exam: PRESENT: atraumatic, normocephalic Eye exam: PRESENT: conjunctiva pink, EOMI, PERRLA. ABSENT: scleral icterus Ear exam: PRESENT: normal external ear exam Mouth exam: PRESENT: moist, tongue midline Neck exam: ABSENT: carotid bruit, JVD, lymphadenopathy, thyromegaly Respiratory exam: PRESENT: clear to auscultation elias. ABSENT: rales, rhonchi, wheezes Cardiovascular exam: PRESENT: RRR. ABSENT: diastolic murmur, rubs, systolic murmur Pulses: PRESENT: normal dorsalis pedis pul Vascular exam: PRESENT: normal capillary refill GI/Abdominal exam: PRESENT: normal bowel sounds, soft. ABSENT: distended, guarding, mass, organolmegaly, rebound, tenderness Rectal exam: PRESENT: deferred Extremities exam: PRESENT: full ROM, other - Some redness remains on the right big toe, as well as some of dorsum of the foot. ABSENT: calf tenderness, clubbing, pedal edema Neurological exam: PRESENT: alert, awake, CN II-XII grossly intact. ABSENT: motor sensory deficit Psychiatric exam: PRESENT: appropriate affect, normal mood. ABSENT: homicidal ideation, suicidal ideation Skin exam: PRESENT: dry, intact, warm. ABSENT: cyanosis, rash Results Laboratory Results: 05/13/16 07:37 05/13/16 07:37 Creatinine 0.59 Est GFR ( Amer) > 60 Est GFR (Non-Af Amer) > 60 05/08/16 17:40 Blood Blood Culture - Final NO GROWTH IN 5 DAYS Impressions: Chest X-Ray 05/09/16 06:00 IMPRESSION: NO ACUTE RADIOGRAPHIC FINDING IN THE CHEST. Assessment & Plan - Diagnosis (1) Osteomyelitis Qualifiers: Osteomyelitis location: foot Laterality: right Is this a current diagnosis for this admission?: Yes (2) Cellulitis Qualifiers: Laterality: right Is this a current diagnosis for this admission?: Yes (3) Diabetic foot ulcer Qualifiers: Diabetic foot ulcer location: unspecified part of foot Is this a current diagnosis for this admission?: Yes (4) Type 2 diabetes mellitus with diabetic autonomic (poly)neuropathy Qualifiers: Diabetes mellitus prison insulin use: without prison use Qualified Code(s): E11.43 - Type 2 diabetes mellitus with diabetic autonomic ( poly)neuropathy Is this a current diagnosis for this admission?: Yes - Time Time Spent with patient: Continue present management patient will remain in the hospital until the infection has resolved Time Spent with patient: 15-24 minutes
[2016-05-13] MEDS: ATORVASTATIN CALCIUM 20 MG TABLET PO SCH (22:07)
[2016-05-13] MEDS: ASPIRIN 81 MG TABLET, CHEWABLE PO SCH (22:08)
[2016-05-14] MEDS: LANSOPRAZOLE 15 MG TAB.RAP.DR PO SCH (05:10)
[2016-05-14] MEDS: GABAPENTIN 300 MG CAPSULE PO SCH ×3 (05:10→22:08)
[2016-05-14] MEDS: VANCOMYCIN HCL 1,500 MG in DEXTROSE 5%-WATER 250 ML IV SCH ×2 (08:06→22:10)
[2016-05-14] MEDS: FERROUS SULFATE 325 MG TABLET PO SCH (09:55)
[2016-05-14] MEDS: LISINOPRIL 10 MG TABLET PO SCH (09:55)
[2016-05-14] MEDS: POLYETHYLENE GLYCOL 3350 POWDER 17 GM/1 PACKET PO SCH (09:56)
[2016-05-14] MEDS: TAMSULOSIN HCL 0.4 MG CAP.SR.24H PO SCH (17:56)
[2016-05-14] MEDS: ERTAPENEM SODIUM 1 GM in NORMAL SALINE 50 ML IV SCH (17:56)
[2016-05-14] MEDS: ASPIRIN 81 MG TABLET, CHEWABLE PO SCH (22:08)
[2016-05-14] MEDS: ATORVASTATIN CALCIUM 20 MG TABLET PO SCH (22:08)
--- NOTE | 2016-05-14 22:18 | PDOC PROGRESS REPORT ---
Subjective Progress Note for:: 05/14/16 Subjective:: Patient is improving his right big toe is not as red Patient to is status post amputation distal phalanx right big toe for osteomyelitis He was initially on Zosyn and after surgery a lot worse ; gram-negative had been cultured initially -Pseudomonas which was pansensitive-culture was performed at an outpatient facility results are in the chart Patient did not get better on Zosyn and after amputation of the distal phalanx the toe was red swollen; cellulitis extending to the foot Patient improved after antibiotics were switched to ertapenem and vancomycin We will continue these antibiotics for another 2-3 days until the redness has completely resolved Physical Exam Vital Signs: Temp Pulse Resp BP Pulse Ox 98.3 F 75 16 128/62 H 98 05/14/16 16:20 05/14/16 16:20 05/14/16 16:20 05/14/16 16:20 05/14/16 16:20 Intake & Output 05/13/16 05/14/16 05/15/16 00:59 00:59 00:59 Intake Total 1010 2070 1540 Balance 1010 2070 1540 Weight 114.5 kg 114.5 kg 114.5 kg General appearance: PRESENT: no acute distress, well-developed, well-nourished Head exam: PRESENT: atraumatic, normocephalic Eye exam: PRESENT: conjunctiva pink, EOMI, PERRLA. ABSENT: scleral icterus Ear exam: PRESENT: normal external ear exam Mouth exam: PRESENT: moist, tongue midline Neck exam: ABSENT: carotid bruit, JVD, lymphadenopathy, thyromegaly Respiratory exam: PRESENT: clear to auscultation elias. ABSENT: rales, rhonchi, wheezes Cardiovascular exam: PRESENT: RRR. ABSENT: diastolic murmur, rubs, systolic murmur Pulses: PRESENT: normal dorsalis pedis pul Vascular exam: PRESENT: normal capillary refill GI/Abdominal exam: PRESENT: normal bowel sounds, soft. ABSENT: distended, guarding, mass, organolmegaly, rebound, tenderness Rectal exam: PRESENT: deferred Extremities exam: PRESENT: full ROM. ABSENT: calf tenderness, clubbing, pedal edema Neurological exam: PRESENT: alert, awake, oriented to person, oriented to place , oriented to time, oriented to situation, CN II-XII grossly intact. ABSENT: motor sensory deficit Psychiatric exam: PRESENT: appropriate affect, normal mood. ABSENT: homicidal ideation, suicidal ideation Skin exam: PRESENT: dry, intact, warm, other - Right big toe slight redness persists Swelling is decreased. ABSENT: cyanosis, rash Results Laboratory Results: 05/13/16 07:37 Impressions: Chest X-Ray 05/09/16 06:00 IMPRESSION: NO ACUTE RADIOGRAPHIC FINDING IN THE CHEST. Assessment & Plan - Diagnosis (1) Osteomyelitis Qualifiers: Osteomyelitis location: foot Laterality: right Is this a current diagnosis for this admission?: Yes (2) Cellulitis Qualifiers: Laterality: right Is this a current diagnosis for this admission?: Yes (3) Diabetic foot ulcer Qualifiers: Diabetic foot ulcer location: unspecified part of foot Is this a current diagnosis for this admission?: Yes (4) Type 2 diabetes mellitus with diabetic autonomic (poly)neuropathy Qualifiers: Diabetes mellitus nursing home insulin use: without marine oil terminal superintendent use Qualified Code(s): E11.43 - Type 2 diabetes mellitus with diabetic autonomic ( poly)neuropathy Is this a current diagnosis for this admission?: Yes - Time Time Spent with patient: Patient may be discharged when redness has resolved be discharged then with by mouth antibiotics Time Spent with patient: 25-34 minutes
[2016-05-14] MEDS: HYDROCODONE/ACETAMINOPHEN 7.5-325 MG TABLET PO PRN (22:36)
[2016-05-15] MEDS: GABAPENTIN 300 MG CAPSULE PO SCH ×3 (05:47→21:44)
[2016-05-15] MEDS: LANSOPRAZOLE 15 MG TAB.RAP.DR PO SCH (05:47)
[2016-05-15] MEDS: VANCOMYCIN HCL 1,500 MG in DEXTROSE 5%-WATER 250 ML IV SCH ×2 (08:31→21:44)
[2016-05-15] MEDS: LISINOPRIL 10 MG TABLET PO SCH (10:23)
[2016-05-15] MEDS: FERROUS SULFATE 325 MG TABLET PO SCH (10:24)
[2016-05-15] MEDS: POLYETHYLENE GLYCOL 3350 POWDER 17 GM/1 PACKET PO SCH (10:24)
[2016-05-15 12:06] LABS: CREATININE RESULT 0.56 mg/dL (0.52-1.25)
[2016-05-15] MEDS ORDERED: DEXTROSE 40% GEL 15 GM TUBE PO PRN ×2 (13:01)
[2016-05-15] MEDS ORDERED: DEXTROSE 50%-WATER 25 GM/50 ML DISP.SYRIN IV PRN ×2 (13:01)
[2016-05-15] MEDS ORDERED: GLUCAGON,HUMAN RECOMB 1 MG INJ IM PRN (13:01)
[2016-05-15] MEDS ORDERED: INSULIN LISPRO 100 UNIT/ML 3 ML VIAL SUBCUT PRN (13:01)
--- NOTE | 2016-05-15 13:09 | PDOC PROGRESS REPORT ---
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 MRSA surveillance culture is negative, blood cultures 2 are negative, I do not see a tissue culture, and his urine culture shows penicillin resistant Escherichia coli. He remains on ertapenem and vancomycin. Subjective: Offending lying in bed in no acute distress, alert and oriented and talkative and denying chest pain, fever, chills, flank pain, nausea, vomiting, diarrhea. ROS: per HPI plus a total of 10 systems reviewed, pertinent positives and negatives noted above, remaining systems negative. Physical Exam Vital Signs: Temp Pulse Resp BP Pulse Ox 97.8 F 65 20 110/58 L 98 05/15/16 08:00 05/15/16 08:00 05/15/16 08:00 05/15/16 08:00 05/15/16 08:00 Intake & Output 05/14/16 05/15/16 05/16/16 06:59 06:59 06:59 Intake Total 1490 2120 Balance 1490 2120 Weight 114.5 kg 114.2 kg EXAM GENERAL: NAD; well developed, well nourished; mild obese; alert and oriented to person, place, time, situation HEENT: normocephalic, atraumatic; no conjunctival injection, no scleral icterus ; oral mucosa moist; RESPIRATORY: no accessory muscle use, no increased WOB, good air entry bilaterally; no wheezes, rales, rhonchi; no inspiratory crackles CARDIO: no JVD; RRR; no systolic murmur; no tachycardia GI: soft; nondistended; normal bowel sounds; no rebound, rigidity, guarding VASCULAR: no pallor; 2+ radial, DP pulse; EXTREMITIES: no calf tender; no palpable cords in calf; no clubbing, cyanosis , pedal edema; Rt foot bandaged c/d/i PSYCH: normal affect, normal mood SKIN: warm; moist; no petechiae; no telengectasias; no jaundice; no rash Results Laboratory Results: 05/15/16 11:33 05/15/16 11:33 Creatinine 0.56 Est GFR ( Amer) > 60 Est GFR (Non-Af Amer) > 60 Impressions: Chest X-Ray 05/09/16 06:00 IMPRESSION: NO ACUTE RADIOGRAPHIC FINDING IN THE CHEST. Status: Imported from PACS Assessment & Plan - Diagnosis (1) Osteomyelitis Qualifiers: Osteomyelitis location: foot Laterality: right Is this a current diagnosis for this admission?: YesPlan: Continue IV antibiotics through the course the day today and change to oral by morning. Wound care per surgery. (2) UTI (urinary tract infection) Qualifiers: Urinary tract infection type: site unspecified Hematuria presence: without hematuria Qualified Code(s): N39.0 - Urinary tract infection, site not specified Is this a current diagnosis for this admission?: YesPlan: More than adequately covered by the antibiotics currently being used. (3) Cellulitis Qualifiers: Laterality: right Is this a current diagnosis for this admission?: YesPlan: Resolved status post amputation and antibiotic therapy. (4) Diabetic foot ulcer Qualifiers: Diabetic foot ulcer location: unspecified part of foot Is this a current diagnosis for this admission?: YesPlan: As above. Start before meals and at bedtime blood glucose monitoring and cover with sliding scale. (5) Diabetes mellitus type 2 in obese Is this a current diagnosis for this admission?: YesPlan: As above. - Time Time Spent with patient: 25-34 minutes Anticipated discharge: Home Within: within 24 hours
[2016-05-15] MEDS: ERTAPENEM SODIUM 1 GM in NORMAL SALINE 50 ML IV SCH (17:36)
[2016-05-15] MEDS: TAMSULOSIN HCL 0.4 MG CAP.SR.24H PO SCH (17:41)
[2016-05-15] MEDS: ATORVASTATIN CALCIUM 20 MG TABLET PO SCH (21:44)
[2016-05-15] MEDS: ASPIRIN 81 MG TABLET, CHEWABLE PO SCH (21:45)
[2016-05-15] MEDS: HYDROCODONE/ACETAMINOPHEN 7.5-325 MG TABLET PO PRN (21:52)
[2016-05-16] MEDS: GABAPENTIN 300 MG CAPSULE PO SCH ×2 (06:27→15:04)
[2016-05-16] MEDS: LANSOPRAZOLE 15 MG TAB.RAP.DR PO SCH (06:27)
[2016-05-16] MEDS: VANCOMYCIN HCL 1,500 MG in DEXTROSE 5%-WATER 250 ML IV SCH (08:31)
[2016-05-16] MEDS: FERROUS SULFATE 325 MG TABLET PO SCH (10:57)
[2016-05-16] MEDS: LISINOPRIL 10 MG TABLET PO SCH (10:57)
[2016-05-16] MEDS: POLYETHYLENE GLYCOL 3350 POWDER 17 GM/1 PACKET PO SCH (10:58)
[2016-05-16 15:51] VITALS: BP 112/50
[2016-05-16] MEDS: HYDROCODONE/ACETAMINOPHEN 7.5-325 MG TABLET PO PRN (16:07)
--- NOTE | 2016-05-16 18:02 | PDOC DISCHARGE SUMMARY ---
General - Admit/Disc Date/PCP Admission Date/Primary Care Provider: 05/08/16 16:30 WIN GALLEGOS NP Discharge Date: 05/16/16 - Discharge Diagnosis (1) Osteomyelitis Is this a current diagnosis for this admission?: YesSummary: Status post amputation of the offending digit (right great toe) with good wound closure and overall improvement in his clinical condition. Continue outpatient oral antibiotics for a full 2 weeks. Continue outpatient wound care. Home health arrangements made per case advocate's. (2) UTI (urinary tract infection) Is this a current diagnosis for this admission?: YesSummary: Penicillin resistant Escherichia coli that is susceptible to tetracyclines and therefore covered by the doxycycline used in the treatment of the above. He is asymptomatic. (3) Cellulitis Is this a current diagnosis for this admission?: Yes (4) Diabetic foot ulcer Is this a current diagnosis for this admission?: Yes (5) Diabetes mellitus type 2 in obese Is this a current diagnosis for this admission?: Yes - Additional Information Resuscitation Status: Full Code Discharge Diet: Diabetic Discharge Activity: Activity As Tolerated Home Medications: Aspirin [Aspirin 81 mg Chewable Tablet] 81 mg PO QHS 05/08/16 Atorvastatin Calcium [Lipitor 20 mg Tablet] 20 mg PO QHS 05/08/16 Ferrous Sulfate [Feosol 325 mg Tablet] 325 mg PO DAILY 05/08/16 Gabapentin 600 mg PO Q8 05/08/16 Lisinopril [Prinivil 10 mg Tablet] 10 mg PO DAILY 05/08/16 Metformin HCl [Glucophage] 500 mg PO BIDACBS 05/08/16 Omeprazole 20 mg PO DAILY 05/08/16 Polyethylene Glycol 3350 [Miralax Powder 17 gm/Packet] 1 packet PO DAILY Sitagliptin Phosphate [Januvia 50 mg Tablet] 100 mg PO DAILY 05/08/16 Tamsulosin HCl [Flomax 0.4 mg Cap.sr] 0.4 mg PO PCSUPPER 05/08/16 Doxycycline Hyclate 100 mg PO BID #28 capsule 05/16/16 Hydrocodone/Acetaminophen [Moccasin 7.5-325 mg Tablet] 1 tab PO DAILYP PRN #14 tablet 05/16/16 History of Present Illness Patient complains of: Sent in for evaluation of a nonhealing wound failing outpatient therapy History of Present Illness: FRANCHESKA SANTIAGO is a 66 year old male Patient of Dr. Cao devulcanizer head at [facility] in [place], was sent as a direct admission for IV antibiotics and amputation of his right big toe Patient was treated without improvement as an outpatient Culture of the wound grew Pseudomonas which was lema sensitive MRI of the right foot showed osteomyelitis of the right big toe Patient was admitted to medical unit for IV antibiotics and surgical consult" Hospital Course Hospital Course: He was admitted to the hospital and started on broad-spectrum antibiotics, surgical consult was obtained and ultimately underwent amputation of the offending digit without complication. MRSA surveillance culture is negative, blood cultures 2 are negative, I do not see a tissue culture, and his urine culture shows penicillin resistant Escherichia coli. He remains on ertapenem and vancomycin. Bedside wound care was continued with simple dressing changes which he can continue at home. He tolerated the antibiotics without any nausea vomiting or diarrhea. He said resolution of fevers. At this point he is stable for discharge home. redye hand made arrangements for home health and prison for ongoing wound care. He expresses no concerns to me about going home today. Physical Exam Vital Signs: Temp Pulse Resp BP Pulse Ox 97.5 F 69 17 112/50 L 98 05/16/16 15:39 05/16/16 15:39 05/16/16 15:39 05/16/16 15:39 05/16/16 15:39 Intake & Output 05/15/16 05/16/16 05/17/16 06:59 06:59 06:59 Intake Total 0 2230 801 Balance 2119 2230 801 Weight 114.2 kg 108.9 kg EXAM GENERAL: NAD; well developed, well nourished; mild obese; alert and oriented to person, place, time, situation HEENT: normocephalic, atraumatic; no conjunctival injection, no scleral icterus ; oral mucosa moist; RESPIRATORY: no accessory muscle use, no increased WOB, good air entry bilaterally; no wheezes, rales, rhonchi; no inspiratory crackles CARDIO: no JVD; RRR; no systolic murmur; no tachycardia GI: soft; nondistended; normal bowel sounds; no rebound, rigidity, guarding VASCULAR: no pallor; 2+ radial, DP pulse; EXTREMITIES: no calf tender; no palpable cords in calf; no clubbing, cyanosis , pedal edema; Rt foot distal tip of the first metatarsal suture line is clean dry and intact without surrounding erythema, no exudate and no tenderness to palpation. PSYCH: normal affect, normal mood SKIN: warm; moist; no petechiae; no telengectasias; no jaundice; no rash Results Laboratory Results: 05/15/16 11:33 Impressions: Chest X-Ray 05/09/16 06:00 IMPRESSION: NO ACUTE RADIOGRAPHIC FINDING IN THE CHEST. Qualifiers PATEINT BEING DISCHARGED WITH ANY OF THE FOLLOWING DIAGNOSIS?: No VTE patient discharged on overlapping Therapy?: No Reason(s) for not prescribing Overlap Therapy:: Not indicated Plan Discharge Plan: Discharge home for ongoing oral antibiotics, follow up with his primary care provider in one week, follow up with general surgeon as instructed, wound care per home health nurse. Return to emergency department for high fevers, purulent exudate from the wound or spreading erythema or worsening generalized condition. Time Spent: Greater than 30 Minutes
== END 2016-05-16 16:45 | disposition home health service (06) | DRG 617 ==
LOC: ER 15:47 → 4N 16:30
PROVIDERS: ADMIT Emergency Medicine; ATTEND Emergency Medicine
PROC: 0Y6P0Z1 Detachment at Right 1st Toe, High, Open Approach (ICD-10-PCS; principal; 2016-05-09 17:15)
DX: E11.69 Type 2 diabetes mellitus with other specified complication (principal); M86.9 Osteomyelitis, unspecified; N39.0 Urinary tract infection, site not specified; B96.20 Unspecified Escherichia coli [E. coli] as the cause of diseases classified elsewhere; Z16.11 Resistance to penicillins; E11.621 Type 2 diabetes mellitus with foot ulcer; E11.628 Type 2 diabetes mellitus with other skin complications; L03.031 Cellulitis of right toe; E11.42 Type 2 diabetes mellitus with diabetic polyneuropathy; B96.5 Pseudomonas (aeruginosa) (mallei) (pseudomallei) as the cause of diseases classified elsewhere; K21.9 Gastro-esophageal reflux disease without esophagitis; I25.10 Atherosclerotic heart disease of native coronary artery without angina pectoris; E78.5 Hyperlipidemia, unspecified; M19.90 Unspecified osteoarthritis, unspecified site; I10 Essential (primary) hypertension; Z79.899 Other long term (current) drug therapy; Z79.84 Long term (current) use of oral hypoglycemic drugs; Z86.14 Personal history of Methicillin resistant Staphylococcus aureus infection; Z87.891 Personal history of nicotine dependence
CPT/HCPCS: 01480; 36415; 71010; 80053; 80202; 81001; 82565; 82962; 85025; 85610; 87040; 87086; 87088; 87186; 88304; 88311; 93005; 93010; 99283; G8978-GP; G8979-GP; J0131; J1335; J2250; J2543; J2704; J3010; J3370; J3490; J7030; J7060

== ENCOUNTER 2016-09-01 05:36 | Emergency (ER) | payer MEDICARE, OTHER ==
--- NOTE | 2016-09-01 05:58 | ER Document Report ---
ED Medical Screen (RME) - General Chief Complaint: Groin Pain Stated Complaint: GROIN PAIN Time Seen by Provider: 09/01/16 05:54 Mode of Arrival: Medic Information source: Patient Notes: 56-year-old male presents to ED for right groin pain for a little over an hour. His right groin area is a little edematous. He has a history of high blood pressure right-sided stroke diabetes. He states he is on lisinopril and hydrocodone but he is not sure of his other medicines because his family member pictures his medicine for him. I have greeted and performed a rapid initial assessment of this patient. A comprehensive ED assessment and evaluation of the patient, analysis of test results and completion of medical decision making process will be conducted by an additional ED providers. TRAVEL OUTSIDE OF THE [place] IN LAST 30 DAYS: No - HPI Onset: Other - an hour before calling ems Onset/Duration: Sudden - Related Data Allergies/Adverse Reactions: norepinephrine bitartrate [From Levophed Bitartrate] Adverse Reaction ( Intermediate, Verified 05/08/16 15:57) Bradycardia Past Medical History - Past Medical History Cardiac Medical History: Reports: Hx Coronary Artery Disease - HIGH CHOLESTEROL , Hx Hypercholesterolemia, Hx Hypertension Denies: Hx Heart Attack Pulmonary Medical History: Denies: Hx Asthma, Hx Bronchitis, Hx COPD, Hx Pneumonia Neurological Medical History: Reports: Hx Cerebrovascular Accident - 2006, right sided hemiparesis. Denies: Hx Seizures Endocrine Medical History: Reports: Hx Diabetes Mellitus Type 2 Renal/ Medical History: Denies: Hx Peritoneal Dialysis GI Medical History: Reports: Hx Gastroesophageal Reflux Disease Musculoskeltal Medical History: Reports Hx Arthritis Psychiatric Medical History: Denies: Hx Depression - patient states he does not have this history Infectious Medical History: Reports: Hx MRSA Past Surgical History: Reports: Hx Orthopedic Surgery - right foot - Immunizations Hx Diphtheria, Pertussis, Tetanus Vaccination: Yes
[2016-09-01 06:18] LABS: APPEARANCE,URINE SLIGHTLY-CLOUDY; BILIRUBIN,URINE NEGATIVE (NEGATIVE); GLUCOSE, URINE NEGATIVE (NEGATIVE); KETONES,URINE NEGATIVE (NEGATIVE); LEUKOCYTE ESTERASE,URINE MODERATE (NEGATIVE); NITRITE,URINE NEGATIVE (NEGATIVE); PROTEIN,URINE 30 mg/dL (NEGATIVE); URINE SPECIFIC GRAVITY 1.016; UROBILINOGEN,URINE NEGATIVE mg/dL (<2.0)
--- NOTE | 2016-09-01 07:15 | RADIOLOGY REPORT (SQ) ---
EXAM DESCRIPTION: U/S SCROTUM W/DOPPLER COMPLETED DATE/TIME: 09/01/2016 6:49 am REASON FOR STUDY: right groin and pelvic pain COMPARISON: None. TECHNIQUE: Static and realtime parks scale imaging of the scrotum and testes. Selected color Doppler and spectral images recorded to document blood flow. LIMITATIONS: None. FINDINGS: RIGHT: TESTICLE: Normal size. Normal echotexture. Normal blood flow. No mass. 4.2 cm. EPIDIDYMIS: Normal. HYDROCELE OR VARICOCELE: No. HERNIA OR EXTRA-TESTICULAR MASS: No. OTHER: No other significant finding. LEFT: TESTICLE: Normal size. Normal echotexture. Normal blood flow. No mass. 4.2 cm. EPIDIDYMIS: Normal. HYDROCELE OR VARICOCELE: No. HERNIA OR EXTRA-TESTICULAR MASS: No. OTHER: No other significant finding. Other: No evidence of significant associated hernia with and without Valsalva maneuvers. IMPRESSION: NORMAL SCROTAL ULTRASOUND. NO EVIDENCE OF TESTICULAR MASS OR TORSION. No significant he rnia identified. TECHNICAL DOCUMENTATION: JOB ID: [id number] [employer]- All Rights Reserved
--- NOTE | 2016-09-01 08:02 | ER Document Report ---
ED General - General Chief Complaint: Groin Pain Stated Complaint: GROIN PAIN Time Seen by Provider: 09/01/16 05:54 Mode of Arrival: Medic Information source: Patient Notes: 66-year-old male presents with complaints of right inguinal burning sensation. Patient denies any fevers or chills denies any urinary complaints. Patient denies any testicular pain difficulty urinating or any other complaints. Patient was sent for an ultrasound TRAVEL OUTSIDE OF THE [place] IN LAST 30 DAYS: No - HPI Onset: Just prior to arrival Onset/Duration: Persistent Quality of pain: Burning Severity: Mild Pain Level: 1 Associated symptoms: Other Exacerbated by: Denies Relieved by: Denies Similar symptoms previously: No Recently seen / treated by doctor: No - Related Data Allergies/Adverse Reactions: norepinephrine bitartrate [From Levophed Bitartrate] Adverse Reaction ( Intermediate, Verified 05/08/16 15:57) Bradycardia Past Medical History - General Information source: Patient - Social History Smoking Status: Never Smoker Cigarette use (# per day): No Chew tobacco use (# tins/day): No Smoking Education Provided: No Frequency of alcohol use: None Drug Abuse: None Family History: Reviewed & Not Pertinent - Past Medical History Cardiac Medical History: Reports: Hx Coronary Artery Disease - HIGH CHOLESTEROL , Hx Hypercholesterolemia, Hx Hypertension Denies: Hx Heart Attack Pulmonary Medical History: Denies: Hx Asthma, Hx Bronchitis, Hx COPD, Hx Pneumonia Neurological Medical History: Reports: Hx Cerebrovascular Accident - 2006, right sided hemiparesis. Denies: Hx Seizures Endocrine Medical History: Reports: Hx Diabetes Mellitus Type 2 Renal/ Medical History: Denies: Hx Peritoneal Dialysis GI Medical History: Reports: Hx Gastroesophageal Reflux Disease Musculoskeltal Medical History: Reports Hx Arthritis Psychiatric Medical History: Denies: Hx Depression - patient states he does not have this history Infectious Medical History: Reports: Hx MRSA Past Surgical History: Reports: Hx Orthopedic Surgery - right foot - Immunizations Hx Diphtheria, Pertussis, Tetanus Vaccination: Yes Hx Pneumococcal Vaccination: 12/26/13 Review of Systems - Review of Systems Notes: REVIEW OF SYSTEMS: CONSTITUTIONAL : Denies fever, chills, or sweats. Denies recent illness. EENT: Denies eye, ear, throat, or mouth pain or symptoms. Denies nasal or sinus congestion or discharge. Denies throat, tongue, or mouth swelling or difficulty swallowing. CARDIOVASCULAR: Denies chest pain. Denies palpitations or racing or irregular heart beat. Denies ankle edema. RESPIRATORY: Denies cough, cold, or chest congestion. Denies shortness of breath, difficulty breathing, or wheezing. GASTROINTESTINAL: Denies abdominal pain or distention. Denies nausea, vomiting , or diarrhea. Denies blood in vomitus, stools, or per rectum. Denies black, tarry stools. Denies constipation. GENITOURINARY: Denies difficulty urinating, painful urination, burning, frequency, blood in urine, or discharge. MUSCULOSKELETAL: Denies back or neck pain or stiffness. Denies joint pain or swelling. SKIN: Denies rash, lesions or sores. HEMATOLOGIC : Denies easy bruising or bleeding. LYMPHATIC: Denies swollen, enlarged glands. NEUROLOGICAL: Denies confusion or altered mental status. Denies passing out or loss of consciousness. Denies dizziness or lightheadedness. Denies headache. Denies weakness or paralysis or loss of use of either side. Denies problems with gait or speech. Denies sensory loss, numbness, or tingling. Denies seizures. PSYCHIATRIC: Denies anxiety or stress. Denies depression, suicidal ideation, or homicidal ideation. ALL OTHER SYSTEMS REVIEWED AND NEGATIVE. Dictation was performed using [employer] voice recognition software PHYSICAL EXAMINATION: GENERAL: Well-appearing, well-nourished and in no acute distress. HEAD: Atraumatic, normocephalic. EYES: Pupils equal round and reactive to light, extraocular movements intact, sclera anicteric, conjunctiva are normal. ENT: Nares patent, oropharynx clear without exudates. Moist mucous membranes. NECK: Normal range of motion, supple without lymphadenopathy LUNGS: Breath sounds clear to auscultation bilaterally and equal. No wheezes rales or rhonchi. HEART: Regular rate and rhythm without murmurs ABDOMEN: Soft, nontender, nondistended abdomen. No guarding, no rebound. No masses appreciated. Musculoskeletal: Normal range of motion, no pitting or edema. No cyanosis. NEUROLOGICAL: Cranial nerves grossly intact. Normal speech, normal gait. Normal sensory, motor exams PSYCH: Normal mood, normal affect. SKIN: Mild rash noted right inguinal consistent with candidal rash Physical Exam - Vital signs Vitals: Temp Pulse Resp BP Pulse Ox 98.2 F 88 16 141/62 H 96 09/01/16 06:00 07/08/17 06:00 09/01/16 06:00 09/01/16 06:00 09/01/16 06:00 Course - Re-evaluation Re-evalutation: 09/01/16 08:06 Ultrasound was negative, it appears a barrier cream had already been placed in the groin however I would start the patient on nystatin and is otherwise well- appearing no distress and will be discharged home After performing a Medical Screening Examination, I estimate there is LOW risk for OPEN FRACTURE, COMPARTMENT SYNDROME, TENDON RUPTURE, ACUTE NEUROVASCULAR INJURY, or RETAINED FOREIGN BODY, thus I consider the discharge disposition reasonable. Also, there is no evidence or peritonitis, sepsis, or toxicity. I have reevaluated this patient multiple times and no significant life threatening changes are noted. The patient and I have discussed the diagnosis and risks, and we agree with discharging home with close follow-up with the understanding that symptoms and presentations can change. We also discussed returning to the Emergency Department immediately if new or worsening symptoms occur. We have discussed the symptoms which are most concerning (e.g., changing or worsening pain, fever, numbness, weakness, cool or painful digits) that necessitate immediate return. - Vital Signs Vital signs: Temp Pulse Resp BP Pulse Ox 98.2 F 88 16 141/62 H 96 09/01/16 06:00 09/01/16 06:00 09/01/16 06:00 09/01/16 06:00 09/01/16 06:00 - Laboratory Laboratory results interpreted by me: 09/01/16 06:05 Urine Protein 30 H Ur Leukocyte Esterase MODERATE H Urine Ascorbic Acid 40 H Discharge - Discharge Clinical Impression: right inguinal rash Condition: Stable Disposition: HOME, SELF-CARE Instructions: Inguinal Strain ([facility]) Prescriptions: Nystatin 30 gm TP BID 10 Days Referrals: WIN GALLEGOS NP [Primary Care Provider] - Follow up tomorrow
[2016-09-01] MEDS ORDERED: NYSTATIN CREAM 15 GM TP ONE (08:04)
[2016-09-01 08:26] VITALS: BP 142/53
== END 2016-09-01 08:25 | disposition home or self-care (01) ==
LOC: ER 05:36
DX: R21 Rash and other nonspecific skin eruption (principal); R10.30 Lower abdominal pain, unspecified; E11.9 Type 2 diabetes mellitus without complications; I25.10 Atherosclerotic heart disease of native coronary artery without angina pectoris; I10 Essential (primary) hypertension; Z86.14 Personal history of Methicillin resistant Staphylococcus aureus infection
CPT/HCPCS: 99284; 87086; 81001; 76870; 93976; J3490

== ENCOUNTER 2017-02-06 08:24 | Day surgery (SDC) | payer MEDICARE, OTHER ==
[~2017-02-06 08:24] MED LIST: KETOROLAC TROMETHAMINE 0.45% 4 DROP/0.4 ML DROPERETTE OD PRN; NEO/POLYMYX B SULF/DEXAMETH OPH OINTMENT 3.5 GM ONE
[2017-02-06] MEDS ORDERED: CHONDR SU A NA/HYALUR INTRAOC KIT (SURGICARE) ONE (08:26)
[2017-02-06] MEDS ORDERED: TOBRAMYCIN SULFATE/DEXAMETH OPH OINTMENT 3.5 GM ONE (08:26)
[2017-02-06] MEDS ORDERED: LIDOCAINE 1% INJ-PF (10 MG/ML) 30 ML SDV ONE (08:26)
[2017-02-06] MEDS ORDERED: EPINEPHRINE INJ/PF 1 MG/1 ML AMPULE ONE (08:26)
[2017-02-06] MEDS: TETRACAINE HCL 0.5% OPH SOLN 0.6 ML DROPERETTE OD PRN ×3 (08:53→09:28)
[2017-02-06] MEDS: TROPICAMIDE 1% OPH SOLN 3 ML OD PRN ×3 (08:54→09:14)
[2017-02-06] MEDS: CYCLOPENTOLATE 0.2%/PHENYLEPHRINE 1% OPH SOLN 2 ML OD PRN ×3 (08:54→09:14)
[2017-02-06] MEDS: BESIFLOXACIN HCL 0.6% OPH SUSP 5 ML BOTTLE OD PRN ×3 (08:55→09:42)
[2017-02-06] MEDS ORDERED: MIDAZOLAM 2 MG/2 ML INJ ONE (09:08)
[2017-02-06] MEDS ORDERED: FENTANYL CITRATE INJ/PF 100 MCG/2 ML AMPUL ONE (09:08)
== END 2017-02-06 10:53 | disposition home or self-care (01) ==
LOC: SC 08:24
PROVIDERS: ATTEND Ophthalmology
PROC: 08RJ3JZ Replacement of Right Lens with Synthetic Substitute, Percutaneous Approach (ICD-10-PCS; principal; 2017-02-06 09:15)
DX: H25.11 Age-related nuclear cataract, right eye (principal); E11.9 Type 2 diabetes mellitus without complications; K21.9 Gastro-esophageal reflux disease without esophagitis; I10 Essential (primary) hypertension; E78.00 Pure hypercholesterolemia, unspecified; M19.90 Unspecified osteoarthritis, unspecified site; Z79.84 Long term (current) use of oral hypoglycemic drugs; Z79.899 Other long term (current) drug therapy; Z86.73 Personal history of transient ischemic attack (TIA), and cerebral infarction without residual deficits
CPT/HCPCS: 66984; 82962; V2630; J2250; J3490 ×3; A9270; J0171; J3010; 142

== ENCOUNTER 2017-02-20 07:25 | Day surgery (SDC) | payer MEDICARE, OTHER ==
[~2017-02-20 07:25] MED LIST changes: +CHONDR SU A NA/HYALUR INTRAOC KIT (SURGICARE) ONE; +EPINEPHRINE INJ/PF 1 MG/1 ML AMPULE ONE; -KETOROLAC TROMETHAMINE 0.45% 4 DROP/0.4 ML DROPERETTE OD PRN; +KETOROLAC TROMETHAMINE 0.45% 4 DROP/0.4 ML DROPERETTE OS PRN; +LIDOCAINE 1% INJ-PF (10 MG/ML) 30 ML SDV ONE; -NEO/POLYMYX B SULF/DEXAMETH OPH OINTMENT 3.5 GM ONE; +TOBRAMYCIN SULFATE/DEXAMETH OPH OINTMENT 3.5 GM ONE
[2017-02-20] MEDS: TROPICAMIDE 1% OPH SOLN 3 ML OS PRN ×3 (07:51→08:11)
[2017-02-20] MEDS: CYCLOPENTOLATE 0.2%/PHENYLEPHRINE 1% OPH SOLN 2 ML OS PRN ×3 (07:51→08:11)
[2017-02-20] MEDS: BESIFLOXACIN HCL 0.6% OPH SUSP 5 ML BOTTLE OS PRN ×3 (07:51→08:55)
[2017-02-20] MEDS: TETRACAINE HCL 0.5% OPH SOLN 0.6 ML DROPERETTE OS PRN ×3 (07:52→08:38)
[2017-02-20] MEDS ORDERED: MIDAZOLAM 2 MG/2 ML INJ ONE (08:22)
[2017-02-20] MEDS ORDERED: EPINEPHRINE INJ/PF 1 MG/1 ML AMPULE ONE (09:15)
== END 2017-02-20 10:00 | disposition home or self-care (01) ==
LOC: SC 07:25
PROVIDERS: ATTEND Ophthalmology
DX: H25.12 Age-related nuclear cataract, left eye (principal); Z98.41 Cataract extraction status, right eye; M19.90 Unspecified osteoarthritis, unspecified site; E11.9 Type 2 diabetes mellitus without complications; K21.9 Gastro-esophageal reflux disease without esophagitis; I10 Essential (primary) hypertension; Z86.73 Personal history of transient ischemic attack (TIA), and cerebral infarction without residual deficits; Z87.891 Personal history of nicotine dependence; Z79.899 Other long term (current) drug therapy; Z79.84 Long term (current) use of oral hypoglycemic drugs; Z79.4 Long term (current) use of insulin; D64.9 Anemia, unspecified; Z79.82 Long term (current) use of aspirin
CPT/HCPCS: 82962; 66984; V2630; J2250; J3490 ×3; A9270; J0171; 142

== ENCOUNTER 2017-04-08 15:31 | Inpatient (IN) | payer MEDICARE, OTHER ==
[2017-04-08] MEDS ORDERED: ACETAMINOPHEN 325 MG TABLET PO ONE (18:08)
[2017-04-08] MEDS ORDERED: CEFTRIAXONE 1 GM/D5W RTU 1 GM/50 ML RTUPB IV ONE (18:09)
--- NOTE | 2017-04-08 18:12 | ER Document Report ---
ED Medical Screen (RME) - General Chief Complaint: Wound Infection Stated Complaint: POSSIBLE INFECTION IN RIGHT FOOT/TOE Time Seen by Provider: 04/08/17 18:07 Mode of Arrival: Wheelchair Information source: Patient, Relative Notes: Patient presents complaining of foot infection to diabetic foot ulcer of his right foot. Patient states he had a debridement of the foot 4 days ago. Patient states that the power and recovery superintendent told him to come to the hospital because he will need several days of IV antibiotics. Patient with 102 fever today. hx: Diabetes, hypertension, CVA I have greeted and performed a rapid initial assessment of this patient. A comprehensive ED assessment and evaluation of the patient, analysis of test results and completion of the medical decision making process will be conducted by additional ED providers. TRAVEL OUTSIDE OF THE [place] IN LAST 30 DAYS: No - Related Data Allergies/Adverse Reactions: No Known Allergies Allergy (Verified 04/08/17 16:23) Past Medical History - Social History Chew tobacco use (# tins/day): No Frequency of alcohol use: None Drug Abuse: None - Past Medical History Cardiac Medical History: Reports: Hx Coronary Artery Disease - HIGH CHOLESTEROL , Hx Hypercholesterolemia, Hx Hypertension Denies: Hx Heart Attack Pulmonary Medical History: Denies: Hx Asthma - as a child with ur problems not now, Hx Bronchitis, Hx COPD, Hx Pneumonia Neurological Medical History: Reports: Hx Cerebrovascular Accident - 2006, right sided WEAKNESS. Denies: Hx Seizures Endocrine Medical History: Reports: Hx Diabetes Mellitus Type 2 Renal/ Medical History: Denies: Hx Peritoneal Dialysis GI Medical History: Reports: Hx Gastroesophageal Reflux Disease. Denies: Hx Hepatitis, Hx Hiatal Hernia, Hx Ulcer Musculoskeltal Medical History: Reports Hx Arthritis Psychiatric Medical History: Denies: Hx Depression - patient states he does not have this history Infectious Medical History: Reports: Hx MRSA. Denies: Hx Hepatitis Past Surgical History: Reports: Hx Orthopedic Surgery - right foot. Denies: Hx Open Heart Surgery, Hx Pacemaker - Immunizations Hx Diphtheria, Pertussis, Tetanus Vaccination: Yes Physical Exam - Vital signs Vitals: Temp Pulse Resp BP Pulse Ox 102.0 F H 80 20 129/61 H 95 04/08/17 16:29 04/08/17 16:29 04/08/17 16:29 04/08/17 16:29 04/08/17 16:29 - Extremities General lower extremity: Tender - Right foot tenderness, 2+ edema with erythema extending from toes to midfoot area. Patient with dressing over wound overlying distal right first metatarsal Course - Vital Signs Vital signs: Temp Pulse Resp BP Pulse Ox 102.0 F H 80 20 129/61 H 95 04/08/17 16:29 04/08/17 16:29 04/08/17 16:29 04/08/17 16:29 04/08/17 16:29
--- NOTE | 2017-04-08 19:04 | RADIOLOGY REPORT (SQ) ---
EXAM DESCRIPTION: FOOT RIGHT COMPLETE COMPLETED DATE/TIME: 04/08/2017 6:53 pm REASON FOR STUDY: foot ulcer, cellulitis COMPARISON: None. NUMBER OF VIEWS: Three views. TECHNIQUE: AP, lateral and oblique radiographic images acquired of the right foot. LIMITATIONS: None. FINDINGS: MINERALIZATION: Osteopenia. BONES: Post amputation change involving the 1st toe at the level of the 1st proximal phalanx base. T here is fragmentation and cortical irregularity involving the remaining 1st proximal phalanx suspicio us for residual/recurrent osteomyelitis. Bones otherwise appear to be intact. JOINTS: No effusions. SOFT TISSUES: Diffuse soft tissue swelling. OTHER: No other significant finding. IMPRESSION: POST AMPUTATION CHANGE INVOLVING THE 1ST TOE ABOVE WITH RADIOGRAPHIC FINDINGS CONCERN ING FOR RESIDUAL/ RECURRENT OSTEOMYELITIS OF THE REMAINDER OF THE 1ST PROXIMAL PHALANX. TECHNICAL DOCUMENTATION: JOB ID: [id number] [employer] All Rights Reserved
[2017-04-08 20:40] LABS: ABSOLUTE BASOPHILS # (AUTO) 0.1 10^3/uL (0.0-0.2); ABSOLUTE EOSINOPHILS # (AUTO) 0.4 10^3/uL (0.0-0.6); ABSOLUTE LYMPHOCYTES (AUTO) 1.2 10^3/uL (0.5-4.7); ABSOLUTE MONOCYTES (AUTO) 1.2 10^3/uL (0.1-1.4); ABSOLUTE NEUT (AUTO) 9.3 10^3/uL (1.7-8.2); BASOPHILS % (AUTO) 0.5 % (0-2); EOSINOPHILS % (AUTO) 3.2 % (0-6); HEMATOCRIT 36.8 % (37.9-51.0); HEMOGLOBIN 12.7 g/dL (13.5-17.0); MEAN CORPUSCULAR HEMOGLOBIN 31.7 pg (27.0-33.4); MEAN CORPUSCULAR HGB CONC 34.6 g/dL (32.0-36.0); MEAN CORPUSCULAR VOLUME 91 fl (80-97); PLATELET COUNT 297 10^3/uL (150-450); RED BLOOD COUNT 4.02 10^6/uL (4.35-5.55); RED CELL DISTRIBUTION WIDTH 13.7 % (11.5-14.0); SEGMENTED NEUTROPHILS % (AUTO) 76.3 % (42-78); TOTAL CELLS COUNTED % (AUTO) 100 %; WHITE BLOOD COUNT 12.2 10^3/uL (4.0-10.5)
[2017-04-08 20:46] LABS: ALANINE AMINOTRANSFERASE 38 U/L (21-72); ALBUMIN 3.6 g/dL (3.5-5.0); ALKALINE PHOSPHATASE 71 U/L (38-126); ANION GAP 10 (5-19); ASPARTATE AMINO TRANSFERASE 36 U/L (17-59); BILIRUBIN,DIRECT 0.4 mg/dL (0.0-0.4); BILIRUBIN,TOTAL 0.5 mg/dL (0.2-1.3); BLOOD UREA NITROGEN 24 mg/dL (7-20); CALCIUM 9.2 mg/dL (8.4-10.2); CARBON DIOXIDE 27 mmol/L (22-30); CHLORIDE 94 mmol/L (98-107); GLUCOSE 193 mg/dL (75-110); POTASSIUM 4.5 mmol/L (3.6-5.0); SODIUM 130.7 mmol/L (137-145); TOTAL PROTEIN 6.8 g/dL (6.3-8.2)
[2017-04-08] MEDS ORDERED: CEFTRIAXONE SODIUM 1,000 MG in NORMAL SALINE 50 ML IV ONE (21:00)
[2017-04-08] MEDS ORDERED: VANCOMYCIN HCL INJ 1000 MG VIAL IV ONE (21:48)
[2017-04-08] MEDS ORDERED: NORMAL SALINE 1000 ML 1,000 ML IV PRN (21:54)
[2017-04-08] MEDS ORDERED: MAG HYDROX/AL HYDROX/SIMETH SUSP 30 ML UDCUP PO PRN (21:54)
[2017-04-08] MEDS ORDERED: ONDANSETRON HCL INJ/PF 4 MG/2 ML SDV IV PRN (21:54)
[2017-04-08] MEDS ORDERED: ACETAMINOPHEN 650 MG SUPP.RECT PR PRN (21:54)
--- NOTE | 2017-04-08 21:54 | ER Document Report ---
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 He follows with Dr. Balderas and Dr. Marco A Kirkland. Patient denies chest pain, shortness of breath, urinary symptoms, nausea, vomiting or abdominal pain. TRAVEL OUTSIDE OF THE [place] IN LAST 30 DAYS: No - Related Data Allergies/Adverse Reactions: No Known Allergies Allergy (Verified 04/08/17 16:23) Past Medical History - General Information source: Patient, Relative - Social History Smoking Status: Former Smoker Chew tobacco use (# tins/day): No Frequency of alcohol use: None Drug Abuse: None Family History: Reviewed & Not Pertinent Patient has suicidal ideation: No Patient has homicidal ideation: No - Past Medical History Cardiac Medical History: Reports: Hx Coronary Artery Disease - HIGH CHOLESTEROL , Hx Hypercholesterolemia, Hx Hypertension Denies: Hx Heart Attack Pulmonary Medical History: Denies: Hx Asthma - as a child with ur problems not now, Hx Bronchitis, Hx COPD, Hx Pneumonia Neurological Medical History: Reports: Hx Cerebrovascular Accident - 2006, right sided WEAKNESS. Denies: Hx Seizures Endocrine Medical History: Reports: Hx Diabetes Mellitus Type 2 Renal/ Medical History: Denies: Hx Peritoneal Dialysis GI Medical History: Reports: Hx Gastroesophageal Reflux Disease. Denies: Hx Hepatitis, Hx Hiatal Hernia, Hx Ulcer Musculoskeltal Medical History: Reports Hx Arthritis Psychiatric Medical History: Denies: Hx Depression - patient states he does not have this history Infectious Medical History: Reports: Hx MRSA. Denies: Hx Hepatitis Past Surgical History: Reports: Hx Orthopedic Surgery - right foot. Denies: Hx Open Heart Surgery, Hx Pacemaker - Immunizations Hx Diphtheria, Pertussis, Tetanus Vaccination: Yes Hx Pneumococcal Vaccination: 12/26/13 Review of Systems - Review of Systems Notes: REVIEW OF SYSTEMS: CONSTITUTIONAL: +fevers, -chills EENT: -eye pain, -difficulty swallowing, -nasal congestion CARDIOVASCULAR: -chest pain, -syncope. RESPIRATORY: -cough, -SOB GASTROINTESTINAL: -abdominal pain, -nausea, -vomiting, -diarrhea GENITOURINARY: -dysuria, -hematuria MUSCULOSKELETAL: +right foot drainage, -back pain, -neck pain HEMATOLOGIC: -easy bruising or bleeding. LYMPHATIC: -swollen, enlarged glands. NEUROLOGICAL: -altered mental status or loss of consciousness, -headache, - neurologic symptoms PSYCHIATRIC: -anxiety, -depression. ALL OTHER SYSTEMS REVIEWED AND NEGATIVE. Physical Exam - Vital signs Vitals: Temp Pulse Resp BP Pulse Ox 102.0 F H 80 20 129/61 H 95 04/08/17 16:29 04/08/17 16:29 04/08/17 16:29 04/08/17 16:29 04/08/17 16:29 - Notes Notes: PHYSICAL EXAMINATION: GENERAL: Well-appearing, well-nourished and in no acute distress. HEAD: Atraumatic, normocephalic. EYES: Pupils equal round and reactive to light, extraocular movements intact, sclera anicteric, conjunctiva are normal. ENT: nares patent, oropharynx clear without exudates. Moist mucous membranes. NECK: Normal range of motion, supple without lymphadenopathy LUNGS: Breath sounds clear to auscultation bilaterally and equal. No wheezes rales or rhonchi. HEART: Regular rate and rhythm without murmurs ABDOMEN: Soft, nontender, normoactive bowel sounds. No guarding, no rebound. No masses appreciated. EXTREMITIES: Right foot with purulent drainage from 1st toe amputation site, streaking redness up right leg to mid-herrera. NEUROLOGICAL: Normal sensory and motor exams. PSYCH: Normal mood, normal affect. Course - Re-evaluation Re-evalutation: Patient with increased purulent drainage from his right foot wound. Concern for osteomyelitis and cellulitis streaking up his leg. X-ray confirms concern for osteomyelitis. Will begin vancomycin and Rocephin for broad-spectrum coverage. After dose of Rocephin, patient began to have a rash on his face, but no other signs of anaphylaxis at this time. Patient requires admission for further evaluation and treatment of his foot wound. 04/08/17 21:[address] Bales (Surgicalist) and he will follow patient. Will admit patient to Dr. Menendez (Hospitalist) to medical floor. - Vital Signs Vital signs: Temp Pulse Resp BP Pulse Ox 102.0 F H 80 20 129/61 H 95 02/12/18 16:29 04/08/17 16:29 04/08/17 16:29 04/08/17 16:29 04/08/17 16:29 - Laboratory Result Diagrams: 04/08/17 20:11 04/08/17 20:11 Laboratory results interpreted by me: 04/08/17 04/08/17 20:11 20:11 WBC 12.2 H RBC 4.02 L Hgb 12.7 L Hct 36.8 L Lymphocytes % 10.0 L Absolute Neutrophils 9.3 H Sodium 130.7 L Chloride 94 L BUN 24 H Glucose 193 H - Diagnostic Test Radiology reviewed: Image reviewed, Reports reviewed Radiology results interpreted by me: Right foot x-ray: POST AMPUTATION CHANGE INVOLVING THE 1ST TOE ABOVE WITH RADIOGRAPHIC FINDINGS CONCERNING FOR RESIDUAL/ RECURRENT OSTEOMYELITIS OF THE REMAINDER OF THE 1ST PROXIMAL PHALANX Discharge - Discharge Clinical Impression: Osteomyelitis of ankle or foot, right, acute, Cellulitis in diabetic foot Condition: Stable Disposition: ADMITTED INPATIENT Admitting Provider: Hospitalist - [place] Unit Admitted: Medical Floor
[2017-04-08] MEDS ORDERED: GLUCAGON,HUMAN RECOMB 1 MG INJ IM PRN (22:07)
[2017-04-08] MEDS ORDERED: DEXTROSE 40% GEL 15 GM TUBE PO PRN ×2 (22:07)
[2017-04-08] MEDS ORDERED: DEXTROSE 50%-WATER 25 GM/50 ML DISP.SYRIN IV PRN ×2 (22:07)
[2017-04-08] MEDS ORDERED: VANCOMYCIN HCL 0 MG in DEXTROSE 5%-WATER 250 ML IV NR (22:15)
--- NOTE | 2017-04-08 22:54 | PDOC CONSULTATION ---
Consultation Consult Date: 04/08/17 Attending physician:: Charlene Bales Consult reason:: right big toe amputation wound infection with osteomyelitis History of Present Illness Admission Date/PCP: 04/08/17 22:19 WIN GALLEGOS NP History of Present Illness: FRANCHESKA SANTIAGO is a 67 year old male reeferred from the wound care center for evaluation of a right great toe nonhealing ulcer post amputation with drainage. He had partial amputation of the right great toe 04/2016. He subsequemtly developed an ulcer on the plantar aspect of the stump and has been going to the wound care center and seeing the [facility]a accommodation consultant, Dr Balderas. He presently has swwelling of the foot, redness and foul drainage from the ulcer. Past Medical History Cardiac Medical History: Reports: Coronary Artery Disease - HIGH CHOLESTEROL, Hyperlipidema, Hypertension Denies: Myocardial Infarction Pulmonary Medical History: Denies: Asthma - as a child with ur problems not now, Bronchitis, Chronic Obstructive Pulmonary Disease (COPD), Pneumonia Neurological Medical History: Denies: Seizures Endocrine Medical History: Reports: Diabetes Mellitus Type 2 GI Medical History: Reports: Gastroesophageal Reflux Disease Denies: Hepatitis, Hiatal Hernia Musculoskeltal Medical History: Reports: Arthritis Psychiatric Medical History: Denies: Depression - patient states he does not have this history Hematology: Denies: Anemia, Sickle Cell Disease Infectious Medical History: Reports: Methicillin-Resistant Staph Aureus Past Surgical History Past Surgical History: Reports: Orthopedic Surgery - right foot Denies: Pacemaker Social History Smoking Status: Former Smoker Frequency of Alcohol Use: None Hx Recreational Drug Use: No Drugs: None Hx Prescription Drug Abuse: No Family History Family History: Reviewed & Not Pertinent Parental Family History Reviewed: No Children Family History Reviewed: Unknown Sibling(s) Family History Reviewed.: Unknown Medication/Allergy Home Medications: Aspirin [Aspirin 81 mg Chewable Tablet] 81 mg PO QHS 05/08/16 Atorvastatin Calcium [Lipitor 20 mg Tablet] 20 mg PO QHS 05/08/16 Ferrous Sulfate [Feosol 325 mg Tablet] 325 mg PO DAILY 05/08/16 Gabapentin 600 mg PO Q8 05/08/16 Lisinopril [Prinivil 10 mg Tablet] 10 mg PO DAILY 05/08/16 Metformin HCl [Glucophage] 500 mg PO BIDACBS 05/08/16 Omeprazole 20 mg PO DAILY 05/08/16 Polyethylene Glycol 3350 [Miralax Powder 17 gm/Packet] 1 packet PO DAILY Sitagliptin Phosphate [Januvia 50 mg Tablet] 100 mg PO DAILY 05/08/16 Tamsulosin HCl [Flomax 0.4 mg Cap.sr] 0.4 mg PO PCSUPPER 05/08/16 Doxycycline Hyclate 100 mg PO BID #28 capsule 05/16/16 Hydrocodone/Acetaminophen [[place] 7.5-325 mg Tablet] 1 tab PO DAILYP PRN #14 tablet 05/16/16 Nystatin 30 gm TP BID 10 Days cream..g. 09/01/16 Allergies/Adverse Reactions: No Known Allergies Allergy (Verified 04/08/17 16:23) Review of Systems Constitutional: ABSENT: chills, fever(s), headache(s), weight gain, weight loss Eyes: ABSENT: visual disturbances Ears: ABSENT: hearing changes Cardiovascular: ABSENT: chest pain, dyspnea on exertion, edema, orthropnea, palpitations Respiratory: ABSENT: cough, hemoptysis Gastrointestinal: ABSENT: abdominal pain, constipation, diarrhea, hematemesis, hematochezia, nausea, vomiting Genitourinary: ABSENT: dysuria, hematuria Musculoskeletal: PRESENT: as per HPI Integumentary: PRESENT: as per HPI Neurological: ABSENT: abnormal gait, abnormal speech, confusion, dizziness, focal weakness, syncope Psychiatric: ABSENT: anxiety, depression, homidical ideation, suicidal ideation Physical Exam Vital Signs: Temp Pulse Resp BP Pulse Ox 102.0 F H 80 20 129/61 H 95 04/08/17 16:29 04/08/17 16:29 04/08/17 16:29 04/08/17 16:29 04/08/17 16:29 General appearance: PRESENT: no acute distress, well-developed, well-nourished Head exam: PRESENT: atraumatic, normocephalic Eye exam: PRESENT: conjunctiva pink, EOMI, PERRLA. ABSENT: scleral icterus Ear exam: PRESENT: normal external ear exam Neck exam: ABSENT: carotid bruit, JVD, lymphadenopathy, thyromegaly Respiratory exam: PRESENT: clear to auscultation elias. ABSENT: rales, rhonchi, wheezes Cardiovascular exam: PRESENT: RRR. ABSENT: diastolic murmur, rubs, systolic murmur Pulses: PRESENT: +2 pedal pulses bilateral Extremities exam: PRESENT: other - right foot edema and erythema in the forefoot , especially the great toe amputation stump but beginning to extend to the adjacent toes. there is a 2.5cm x 2.5cm x 2cm ulcer in the plantar aspect of the stump with foul purulent drainage. Neurological exam: PRESENT: alert, awake, oriented to person, oriented to place , oriented to time, oriented to situation, CN II-XII grossly intact. ABSENT: motor sensory deficit Psychiatric exam: PRESENT: appropriate affect, normal mood. ABSENT: homicidal ideation, suicidal ideation Results Impressions: Foot X-Ray 04/08/17 18:09 IMPRESSION: POST AMPUTATION CHANGE INVOLVING THE 1ST TOE ABOVE WITH RADIOGRAPHIC FINDINGS CONCERNING FOR RESIDUAL/ RECURRENT OSTEOMYELITIS OF THE REMAINDER OF THE 1ST PROXIMAL PHALANX. Assessment & Plan - Diagnosis (1) History of amputation of right great toe Is this a current diagnosis for this admission?: Yes (2) Cellulitis in diabetic foot Is this a current diagnosis for this admission?: Yes (3) Osteomyelitis of ankle or foot, right, acute Is this a current diagnosis for this admission?: Yes (4) Diabetic foot ulcer Qualifiers: Diabetic foot ulcer location: unspecified part of foot Is this a current diagnosis for this admission?: Yes (5) Neuropathy Is this a current diagnosis for this admission?: Yes (6) Type 2 diabetes mellitus with diabetic autonomic (poly)neuropathy Qualifiers: Diabetes mellitus halfway insulin use: without halfway use Qualified Code(s): E11.43 - Type 2 diabetes mellitus with diabetic autonomic (poly) neuropathy Is this a current diagnosis for this admission?: Yes - Plan Summary Plan Summary: The patient needs an open amputation of the rest of the right great toe with wound vac application. Hopefully the rest of the foot can be salvaged but this is not assured. IV antibiotics. I spoke with his POA - his - and his dughter and explained the treatment. An informed consent was obtained for the procedure.
[2017-04-09] MEDS ORDERED: PIPERACILLIN/TAZOBACTAM 3.375 GM VIAL IV SCH
[2017-04-09] MEDS ORDERED: VANCOMYCIN HCL INJ 1000 MG VIAL ONE (01:37)
--- NOTE | 2017-04-09 01:46 | PDOC H&P ---
History of Present Illness Patient complains of: Right foot infection History of Present Illness: FRANCHESKA SANTIAGO is a 67 year old male with a history of hypertension and non- insulin-dependent type 2 diabetes, peripheral neuropathy, prior right great toe amputation in April 2016 and chronic right first toe diabetic ulcer who went to the [facility] on to 04/04/2017 to have his right great toe wound debrided. At that time a bone specimen was taken. Patient was not started on any antibiotics. By the following day on Saturday patient started having increased redness and swelling. Patient continued to have progressive redness and swelling and then last night which was Saturday patient caregiver noted that patient may have started to have fevers. No temperature was taken. He was concerned that patient may be developing infection as his fasting glucoses were elevated to 200 which is high. They normally range in the 80s to the low 100s. On presentation to the ED patient was noted to have a fever of 102.0 and mild leukocytosis of 12,000. X-ray of the foot showed osteo-myelitis. He was given ceftriaxone and vancomycin. Surgery was consulted. This was consulted to admit patient for right foot osteo-, sepsis and hyponatremia Past Medical History Cardiac Medical History: Reports: Coronary Artery Disease - HIGH CHOLESTEROL, Hyperlipidema, Hypertension Denies: Myocardial Infarction Pulmonary Medical History: Denies: Asthma - as a child with ur problems not now, Bronchitis, Chronic Obstructive Pulmonary Disease (COPD), Pneumonia Neurological Medical History: Denies: Seizures Endocrine Medical History: Reports: Diabetes Mellitus Type 2 GI Medical History: Reports: Gastroesophageal Reflux Disease Denies: Hepatitis, Hiatal Hernia Musculoskeltal Medical History: Reports: Arthritis Psychiatric Medical History: Denies: Depression - patient states he does not have this history Hematology: Denies: Anemia, Sickle Cell Disease Infectious Medical History: Reports: Methicillin-Resistant Staph Aureus Past Surgical History Past Surgical History: Reports: Orthopedic Surgery - right foot Denies: Pacemaker Social History Smoking Status: Former Smoker Frequency of Alcohol Use: None Hx Recreational Drug Use: No Drugs: None Hx Prescription Drug Abuse: No - Advance Directive Resuscitation Status: Full Code Family History Family History: DM, Hypertension, Malignancy Parental Family History Reviewed: No Children Family History Reviewed: No Sibling(s) Family History Reviewed.: No Medication/Allergy Home Medications: Aspirin [Aspirin 81 mg Chewable Tablet] 81 mg PO QHS 05/08/16 Atorvastatin Calcium [Lipitor 20 mg Tablet] 20 mg PO QHS 05/08/16 Ferrous Sulfate [Feosol 325 mg Tablet] 325 mg PO DAILY 05/08/16 Gabapentin 600 mg PO Q8 05/08/16 Lisinopril [Prinivil 10 mg Tablet] 10 mg PO DAILY 05/08/16 Metformin HCl [Glucophage] 500 mg PO BIDACBS 05/08/16 Omeprazole 20 mg PO DAILY 05/08/16 Polyethylene Glycol 3350 [Miralax Powder 17 gm/Packet] 1 packet PO DAILY Sitagliptin Phosphate [Januvia 50 mg Tablet] 100 mg PO DAILY 05/08/16 Tamsulosin HCl [Flomax 0.4 mg Cap.sr] 0.4 mg PO PCSUPPER 05/08/16 Doxycycline Hyclate 100 mg PO BID #28 capsule 05/16/16 Hydrocodone/Acetaminophen [[place] 7.5-325 mg Tablet] 1 tab PO DAILYP PRN #14 tablet 05/16/16 Nystatin 30 gm TP BID 10 Days cream..g. 09/01/16 Allergies/Adverse Reactions: No Known Allergies Allergy (Verified 04/08/17 16:23) Review of Systems Constitutional: PRESENT: fever(s). ABSENT: chills, headache(s), weight gain, weight loss Eyes: ABSENT: visual disturbances Ears: ABSENT: hearing changes Cardiovascular: ABSENT: chest pain, dyspnea on exertion, edema, orthropnea, palpitations Respiratory: ABSENT: cough, hemoptysis Gastrointestinal: ABSENT: abdominal pain, constipation, diarrhea, hematemesis, hematochezia, nausea, vomiting Genitourinary: ABSENT: dysuria, hematuria Musculoskeletal: PRESENT: other - Foot pain. ABSENT: joint swelling Integumentary: ABSENT: rash, wounds Neurological: ABSENT: abnormal gait, abnormal speech, confusion, dizziness, focal weakness, syncope Psychiatric: ABSENT: anxiety, depression, homidical ideation, suicidal ideation Endocrine: ABSENT: cold intolerance, heat intolerance, polydipsia, polyuria Hematologic/Lymphatic: ABSENT: easy bleeding, easy bruising Physical Exam Vital Signs: Temp Pulse Resp BP Pulse Ox 102.0 F H 80 20 129/61 H 95 04/08/17 16:29 04/08/17 16:29 04/08/17 16:29 04/08/17 16:29 04/08/17 16:29 Intake & Output 04/07/17 04/08/17 04/09/17 06:59 06:59 06:59 Weight 100 kg General appearance: PRESENT: disheveled, well-developed, well-nourished Head exam: PRESENT: normocephalic Eye exam: PRESENT: EOMI. ABSENT: scleral icterus Ear exam: PRESENT: normal external ear exam Mouth exam: PRESENT: moist, tongue midline Neck exam: ABSENT: carotid bruit, JVD, lymphadenopathy, thyromegaly Respiratory exam: PRESENT: clear to auscultation elias. ABSENT: rales, rhonchi, wheezes Cardiovascular exam: PRESENT: RRR. ABSENT: diastolic murmur, rubs, systolic murmur Pulses: PRESENT: normal dorsalis pedis pul Vascular exam: PRESENT: normal capillary refill GI/Abdominal exam: PRESENT: normal bowel sounds, soft. ABSENT: distended, guarding, mass, organolmegaly, rebound, tenderness Rectal exam: PRESENT: deferred Extremities exam: PRESENT: full ROM. ABSENT: calf tenderness, clubbing, pedal edema Musculoskeletal exam: PRESENT: other - Foot amputation significant swelling and erythema dressing on great toe Neurological exam: PRESENT: alert, awake, oriented to person, oriented to place , oriented to time, oriented to situation, CN II-XII grossly intact. ABSENT: motor sensory deficit Psychiatric exam: PRESENT: appropriate affect, normal mood. ABSENT: homicidal ideation, suicidal ideation Skin exam: PRESENT: dry, intact, warm. ABSENT: cyanosis, rash Results Laboratory Results: 04/08/17 20:11 04/08/17 20:11 04/08/17 04/08/17 20:11 20:11 WBC 12.2 H RBC 4.02 L Hgb 12.7 L Hct 36.8 L MCV 91 MCH 31.7 MCHC 34.6 RDW 13.7 Plt Count 297 Seg Neutrophils % 76.3 Lymphocytes % 10.0 L Monocytes % 10.0 Eosinophils % 3.2 Basophils % 0.5 Absolute Neutrophils 9.3 H Absolute Lymphocytes 1.2 Absolute Monocytes 1.2 Absolute Eosinophils 0.4 Absolute Basophils 0.1 Sodium 130.7 L Potassium 4.5 Chloride 94 L Carbon Dioxide 27 Anion Gap 10 BUN 24 H Creatinine 0.76 Est GFR ( Amer) > 60 Est GFR (Non-Af Amer) > 60 Glucose 193 H Calcium 9.2 Total Bilirubin 0.5 AST 36 ALT 38 Alkaline Phosphatase 71 Total Protein 6.8 Albumin 3.6 Impressions: Foot X-Ray 04/08/17 18:09 IMPRESSION: POST AMPUTATION CHANGE INVOLVING THE 1ST TOE ABOVE WITH RADIOGRAPHIC FINDINGS CONCERNING FOR RESIDUAL/ RECURRENT OSTEOMYELITIS OF THE REMAINDER OF THE 1ST PROXIMAL PHALANX. Assessment & Plan - Diagnosis (1) Sepsis Qualifiers: Sepsis type: sepsis due to unspecified organism Qualified Code(s): A41.9 - Sepsis, unspecified organism Is this a current diagnosis for this admission?: Yes Plan: Patient with sepsis presenting with a temperature of 102 and leukocytosis of 12.2 patient noted to have right foot osteo-. Blood cultures drawn patient started on imipenem. Patient also on fluids. Plan is for surgical intervention. (2) Osteomyelitis of ankle or foot, right, acute Is this a current diagnosis for this admission?: Yes Plan: Patient has right foot osteo-as seen on x-ray. Patient had a bone culture that was done on 04/04/2017 which is growing out Alcalgines species, Klebsiella species MSSA, Corynebacterium species and prevotella species. Upon review of the culture was noted that Alcalgines species, Klebsiella species MSSA susceptible to imipenem and gentamicin. Patient was started on gentamicin. It was noticed that they were all susceptible to Bactrim also. Surgery consulted. Patient is n.p.o. Patient on IV fluids. Patient on imipenem. Patient going to the OR in the morning. (3) Cellulitis in diabetic foot Is this a current diagnosis for this admission?: Yes Plan: Patient with cellulitis and was given a dose of vancomycin and ceftriaxone. Patient was changed to imipenem used on right bone culture. Monitor for improvement and provide adequate diabetic control. (4) Type 2 diabetes mellitus Is this a current diagnosis for this admission?: Yes Plan: Patient with type 2 diabetes normally on oral anti-hyperglycemics. Will hold those for now and start patient on sliding scale insulin. Will check hemoglobin A1c. (5) Chronic anemia Is this a current diagnosis for this admission?: Yes Plan: Patient with what appears to be chronic anemia. Hemoglobin is 12.7. Previous was 12.6 as of 05/08/2016. Patient is on iron. Iron can be resumed on discharge. (6) Hyponatremia Is this a current diagnosis for this admission?: Yes Plan: Hyponatremia of 130 acute infection. Patient started on normal saline. Will follow-up BMP in the morning. (7) Pre-operative clearance Is this a current diagnosis for this admission?: Yes Plan: Patient is a 67-year-old male not quite advanced in age but almost there. Undergoing an intermediate risk procedure to his right foot. Patient has a history of diabetes and hypertension. Hypertension appears well-controlled. Will check the A1c of regarding patient's diabetes however patient states is well controlled. Patient had a TIA however this was back in 2005. Patient has not had any more events. Patient denies any history of MS or chest pain with activity. EKG is ordered. Patient is at moderate risk due to his age and comorbidities however patient is cleared from a medical standpoint for his procedure. - Time Time Spent: 30 to 50 Minutes Anticipated discharge: Home with Homehealth Within: within 72 hours - Inpatient Certification Medical Necessity: Need for IV Antibiotics, Need for Surgery
[2017-04-09] MEDS: HYDROCODONE/ACETAMINOPHEN 7.5-325 MG TABLET PO PRN ×2 (02:14→17:59)
[2017-04-09 03:34] LABS: ABSOLUTE BASOPHILS # (AUTO) 0.1 10^3/uL (0.0-0.2); ABSOLUTE EOSINOPHILS # (AUTO) 0.5 10^3/uL (0.0-0.6); ABSOLUTE LYMPHOCYTES (AUTO) 1.1 10^3/uL (0.5-4.7); ABSOLUTE MONOCYTES (AUTO) 1.1 10^3/uL (0.1-1.4); ABSOLUTE NEUT (AUTO) 7.2 10^3/uL (1.7-8.2); BASOPHILS % (AUTO) 0.7 % (0-2); EOSINOPHILS % (AUTO) 5.1 % (0-6); HEMATOCRIT 34.3 % (37.9-51.0); HEMOGLOBIN 12.1 g/dL (13.5-17.0); LYMPHOCYTES % (AUTO) 10.8 % (13-45); MEAN CORPUSCULAR HEMOGLOBIN 32.4 pg (27.0-33.4); MEAN CORPUSCULAR HGB CONC 35.3 g/dL (32.0-36.0); MEAN CORPUSCULAR VOLUME 92 fl (80-97); MONOCYTES % (AUTO) 11.4 % (3-13); PLATELET COUNT 259 10^3/uL (150-450); RED BLOOD COUNT 3.74 10^6/uL (4.35-5.55); RED CELL DISTRIBUTION WIDTH 13.8 % (11.5-14.0); TOTAL CELLS COUNTED % (AUTO) 100 %
[2017-04-09 03:44] LABS: ANION GAP 6 (5-19); BLOOD UREA NITROGEN 21 mg/dL (7-20); CALCIUM 8.7 mg/dL (8.4-10.2); CARBON DIOXIDE 30 mmol/L (22-30); CHLORIDE 96 mmol/L (98-107); GLUCOSE 207 mg/dL (75-110); POTASSIUM 4.1 mmol/L (3.6-5.0); SODIUM 131.6 mmol/L (137-145)
[2017-04-09] MEDS: HYDROMORPHONE HCL INJ/PF 2 MG/ML AMPULE IV PRN ×2 (04:28→22:22)
[2017-04-09] MEDS: GABAPENTIN 300 MG CAPSULE PO SCH ×3 (05:51→22:22)
[2017-04-09] MEDS: LANSOPRAZOLE 30 MG TAB.RAP.DR PO SCH (05:52)
[2017-04-09] MEDS ORDERED: LIDOCAINE 2% INJ-PF (20 MG/ML) 2 ML AMPUL ONE (08:10)
--- NOTE | 2017-04-09 09:26 | EKG REPORT ---
SEVERITY:- NORMAL ECG - SINUS RHYTHM : Confirmed by: Bryan Bailey 09-Apr-2017 09:26:06
[2017-04-09] MEDS ORDERED: IMIPENEM/CILASTATIN SODIUM INJ 500 MG VIAL IV SCH (10:00)
[2017-04-09] MEDS: LACTOBACILLUS ACIDOPHILUS 250 MG TAB PO SCH ×2 (11:33→18:00)
[2017-04-09] MEDS: LISINOPRIL 10 MG TABLET PO SCH (11:34)
[2017-04-09] MEDS: OXYBUTYNIN CHLORIDE 5 MG TABLET PO SCH ×2 (11:34→17:59)
[2017-04-09] MEDS: DOCUSATE SODIUM 100 MG CAPSULE PO SCH ×2 (11:35→18:00)
[2017-04-09] MEDS: IMIPENEM/CILASTATIN SODIUM 500 MG in NORMAL SALINE 100 ML IV SCH ×2 (11:36→21:17)
[2017-04-09] MEDS: ENOXAPARIN SODIUM INJ 40 MG/0.4 ML DISP.SYRIN SUBCUT SCH (11:37)
--- NOTE | 2017-04-09 13:14 | PDOC PROGRESS REPORT ---
Subjective Progress Note for:: 04/09/17 Subjective:: Patient complains of being hungry and also having pain to his right foot Review of systems All organ systems evaluated and negative except as in subjective All significant laboratories and diagnostics have been reviewed Reason For Visit: RIGHT FOOT OSTEO,SEPSIS Physical Exam Vital Signs: Temp Pulse Resp BP Pulse Ox 99.6 F 78 17 111/52 L 93 04/09/17 04:44 04/09/17 04:44 04/09/17 05:31 04/09/17 05:31 04/09/17 05:31 Intake & Output 04/08/17 04/09/17 04/10/17 06:59 06:59 06:59 Output Total 450 Balance -450 General appearance: PRESENT: cooperative, morbidly obese Head exam: PRESENT: atraumatic, normocephalic Eye exam: PRESENT: conjunctiva pink, EOMI, PERRLA Ear exam: PRESENT: normal external ear exam Neck exam: PRESENT: full ROM. ABSENT: JVD, lymphadenopathy, tenderness Cardiovascular exam: PRESENT: RRR. ABSENT: diastolic murmur, systolic murmur Vascular exam: PRESENT: normal capillary refill GI/Abdominal exam: PRESENT: normal bowel sounds, soft. ABSENT: tenderness Extremities exam: PRESENT: full ROM. ABSENT: pedal edema Musculoskeletal exam: ABSENT: ambulatory Neurological exam: PRESENT: alert, awake, oriented to person, oriented to place , oriented to time, oriented to situation, CN II-XII grossly intact Psychiatric exam: PRESENT: appropriate affect, normal mood Skin exam: PRESENT: other - There is redness and swelling of the left foot extending around two thirds above right ankle Results Laboratory Results: 04/09/17 03:23 04/09/17 03:23 04/09/17 04/09/17 03:23 03:23 WBC 10.0 RBC 3.74 L Hgb 12.1 L Hct 34.3 L MCV 92 MCH 32.4 MCHC 35.3 RDW 13.8 Plt Count 259 Seg Neutrophils % 72.0 Lymphocytes % 10.8 L Monocytes % 11.4 Eosinophils % 5.1 Basophils % 0.7 Absolute Neutrophils 7.2 Absolute Lymphocytes 1.1 Absolute Monocytes 1.1 Absolute Eosinophils 0.5 Absolute Basophils 0.1 Sodium 131.6 L Potassium 4.1 Chloride 96 L Carbon Dioxide 30 Anion Gap 6 BUN 21 H Creatinine 0.76 Est GFR ( Amer) > 60 Est GFR (Non-Af Amer) > 60 Glucose 207 H Calcium 8.7 Magnesium 1.7 Impressions: Foot X-Ray 04/08/17 18:09 IMPRESSION: POST AMPUTATION CHANGE INVOLVING THE 1ST TOE ABOVE WITH RADIOGRAPHIC FINDINGS CONCERNING FOR RESIDUAL/ RECURRENT OSTEOMYELITIS OF THE REMAINDER OF THE 1ST PROXIMAL PHALANX. Assessment & Plan - Diagnosis (1) Cellulitis in diabetic foot Is this a current diagnosis for this admission?: Yes Plan: Polymicrobial as is usually the case. Will add Zyvox and continue imipenem (2) Chronic anemia Is this a current diagnosis for this admission?: Yes Plan: To trend (3) Osteomyelitis of ankle or foot, right, acute Is this a current diagnosis for this admission?: Yes Plan: For surgery today. (4) Type 2 diabetes mellitus Qualifiers: Diabetes mellitus complication status: with neurologic complications Diabetes mellitus complication detail: with autonomic neuropathy Diabetes mellitus intermodal customer service insulin use: without skilled nursing use Qualified Code(s): E11.43 - Type 2 diabetes mellitus with diabetic autonomic (poly)neuropathy Is this a current diagnosis for this admission?: Yes Plan: Request hemoglobin A1c. Continue Humalog sliding scale and bedside glucose before meals and at bedtime (5) Cerebrovascular accident, old Is this a current diagnosis for this admission?: Yes Plan: Stable (6) Hyponatremia Is this a current diagnosis for this admission?: Yes Plan: Trend - Time Time Spent with patient: 15-24 minutes Medications reviewed and adjusted accordingly: Yes Anticipated discharge: Acute Rehab Within: within 72 hours - Inpatient Certification Based on my medical assessment, after consideration of the patient's comorbidities, presenting symptoms, or acuity I expect that the services needed warrant INPATIENT care.: Yes I certify that my determination is in accordance with my understanding of Medicare's requirements for reasonable and necessary INPATIENT services [42 CFR 412.3e].: Yes Medical Necessity: Need for Pain Control, Need for IV Antibiotics, Need for Surgery
[2017-04-09] MEDS ORDERED: FENTANYL CITRATE INJ/PF 100 MCG/2 ML AMPUL ONE (13:21)
[2017-04-09] MEDS ORDERED: PROPOFOL INJ 200 MG/20 ML VIAL IV ONE (13:21)
[2017-04-09] MEDS ORDERED: ACETAMINOPHEN 0 ML IV ONE (13:21)
[2017-04-09] MEDS ORDERED: MIDAZOLAM 2 MG/2 ML INJ ONE (13:21)
[2017-04-09] MEDS ORDERED: HYDROMORPHONE HCL INJ/PF 2 MG/ML AMPULE ONE (13:22)
[2017-04-09] MEDS ORDERED: LIDOCAINE 1% INJ-PF (10 MG/ML) 30 ML SDV ONE (13:23)
[2017-04-09] MEDS ORDERED: BUPIVACAINE HCL 0.25 % INJ/PF (2.5 MG/1 ML) 30 ML VIAL ONE (13:23)
[2017-04-09] MEDS ORDERED: PROMETHAZINE HCL INJ 25 MG/1 ML VIAL IV PRN (14:30)
[2017-04-09] MEDS ORDERED: DIPHENHYDRAMINE HCL 50 MG/ML VIAL IV PRN (14:30)
[2017-04-09] MEDS ORDERED: MORPHINE SULFATE 10 MG/ML INJ IV PRN (14:30)
[2017-04-09] MEDS ORDERED: LINEZOLID 600 MG RTU 300 ML IV ONE (14:30)
[2017-04-09] MEDS ORDERED: ONDANSETRON HCL INJ/PF 4 MG/2 ML SDV ONE (16:25)
[2017-04-09] MEDS ORDERED: NORMAL SALINE 1000 ML 1,000 ML IV PRN (16:49)
--- NOTE | 2017-04-09 17:22 | PDOC PROGRESS REPORT ---
Subjective Progress Note for:: 04/09/17 Subjective:: No new issues Reason For Visit: RIGHT FOOT OSTEO,SEPSIS Physical Exam Vital Signs: Temp Pulse Resp BP Pulse Ox 99.6 F 78 17 118/56 L 96 04/09/17 13:57 04/09/17 13:57 04/09/17 13:57 04/09/17 13:57 04/09/17 13:57 Intake & Output 04/08/17 04/09/17 04/10/17 06:59 06:59 06:59 Intake Total 0 Output Total 450 0 Balance -450 0 General appearance: PRESENT: no acute distress Eye exam: PRESENT: conjunctiva pink Respiratory exam: PRESENT: clear to auscultation elias. ABSENT: rales, rhonchi, wheezes Cardiovascular exam: PRESENT: RRR. ABSENT: diastolic murmur, rubs, systolic murmur GI/Abdominal exam: PRESENT: normal bowel sounds, soft. ABSENT: distended, guarding, mass, organolmegaly, rebound, tenderness Extremities exam: PRESENT: other - right foot: edema up to lower leg; erythema of the forefoot; 2.5cm ulcer on the plantar aspect of the great toe amputation stump with purulent drainage Neurological exam: PRESENT: alert, awake, oriented to person, oriented to place , oriented to time, oriented to situation, CN II-XII grossly intact, motor sensory deficit Results Laboratory Results: 04/09/17 03:23 04/09/17 03:23 04/09/17 04/09/17 03:23 03:23 WBC 10.0 RBC 3.74 L Hgb 12.1 L Hct 34.3 L MCV 92 MCH 32.4 MCHC 35.3 RDW 13.8 Plt Count 259 Seg Neutrophils % 72.0 Lymphocytes % 10.8 L Monocytes % 11.4 Eosinophils % 5.1 Basophils % 0.7 Absolute Neutrophils 7.2 Absolute Lymphocytes 1.1 Absolute Monocytes 1.1 Absolute Eosinophils 0.5 Absolute Basophils 0.1 Sodium 131.6 L Potassium 4.1 Chloride 96 L Carbon Dioxide 30 Anion Gap 6 BUN 21 H Creatinine 0.76 Est GFR ( Amer) > 60 Est GFR (Non-Af Amer) > 60 Glucose 207 H Calcium 8.7 Magnesium 1.7 Impressions: Foot X-Ray 04/08/17 18:09 IMPRESSION: POST AMPUTATION CHANGE INVOLVING THE 1ST TOE ABOVE WITH RADIOGRAPHIC FINDINGS CONCERNING FOR RESIDUAL/ RECURRENT OSTEOMYELITIS OF THE REMAINDER OF THE 1ST PROXIMAL PHALANX. Assessment & Plan - Diagnosis (1) History of amputation of right great toe Is this a current diagnosis for this admission?: Yes (2) Cellulitis in diabetic foot Is this a current diagnosis for this admission?: Yes (3) Osteomyelitis of ankle or foot, right, acute Is this a current diagnosis for this admission?: Yes (4) Diabetic foot ulcer Qualifiers: Diabetic foot ulcer location: unspecified part of foot Is this a current diagnosis for this admission?: Yes (5) Neuropathy Is this a current diagnosis for this admission?: Yes (6) Type 2 diabetes mellitus with diabetic autonomic (poly)neuropathy Qualifiers: Diabetes mellitus animal care technician insulin use: without senior living use Qualified Code(s): E11.43 - Type 2 diabetes mellitus with diabetic autonomic (poly) neuropathy Is this a current diagnosis for this admission?: Yes - Plan Summary Plan Summary: for open partial ray amputation of the right great toe
[2017-04-09] MEDS ORDERED: ONDANSETRON HCL INJ/PF 4 MG/2 ML SDV IV ONE (17:30)
--- NOTE | 2017-04-09 17:36 | Operative Report ---
Operative Report DATE OF SURGERY: 04/09/17 PREOPERATIVE DIAGNOSIS: 1. Diabetic infection of right great toe partial amputation stump extending to forefoot. 2. Osteomyelitis of residual right first proximal phalanx POSTOPERATIVE DIAGNOSIS: 1. Diabetic infection of right great toe partial amputation stump extending to forefoot. 2. Osteomyelitis of residual right first proximal phalanx OPERATION: Open Completion amputation of right great toe with partial ray technique TISSUE REMOVED OR ALTERED: residual right first proximal phalanx and distal metatarsal COMPLICATIONS: none ESTIMATED BLOOD LOSS: 30ml INTRAOPERATIVE FINDINGS: right foot edema and erythema; 2.5cm ulcer on the plantar aspect of the great toe amputation stump with purulent drainage PROCEDURE: The patient was brought to the operating room and placed on the operating table. He had spinal anesthesia administered and was positioned supine on the table. The right foot and leg were prepped with betadine and sterile drapes laid to expose the foot. A time out was done. Under sterile aseptic conditions, a 6cm longitudinal incision was made on the medial aspect of the right great toe toward the distal part of the metatarsal. Dissection was taken straight down to the bone - the residual proximal phalanx and distal metatarsal. The bones were cleared of all soft tissue with the Bovie. The metatarsal was transected at a chosen point about midpoint with a bevel downwards. The specimen including the proximal first phalanx and the metatarsal were sent off the field as specimen. The sesamoid apparatus was resected from the plantar aspect of the wound bed. Hemostasis was secured with 2-0 silk figure of eight stitch and with the Bovie. The wound was irrigated with saline and dressed with a packing of 1/2 inch iodoform gauze, 4x4, ABD , 4 inch kerlex and 4 inch scotty wrap. The patient tolerated the procedure well and was taken to the PACU in stable condition.
[2017-04-09] MEDS: ASCORBIC ACID 500 MG TABLET PO SCH (17:59)
[2017-04-09] MEDS ORDERED: TAMSULOSIN HCL 0.4 MG CAP.SR.24H PO SCH (18:00)
[2017-04-09] MEDS: NORMAL SALINE 1000 ML 1,000 ML IV PRN (18:00)
[2017-04-09] MEDS ORDERED: INFLUENZA ADLT QUAD (36MOS+) 2017-18 VAC 0.5 ML SYR IM PRN (19:04)
[2017-04-09 19:58] LABS: ANION GAP 7 (5-19); BLOOD UREA NITROGEN 13 mg/dL (7-20); CALCIUM 8.4 mg/dL (8.4-10.2); CARBON DIOXIDE 27 mmol/L (22-30); CHLORIDE 96 mmol/L (98-107); GLUCOSE 191 mg/dL (75-110); POTASSIUM 4.3 mmol/L (3.6-5.0); SODIUM 130.2 mmol/L (137-145)
[2017-04-09] MEDS: LINEZOLID 300 ML IV SCH (22:22)
[2017-04-09] MEDS: ASPIRIN 81 MG TABLET, CHEWABLE PO SCH (22:22)
[2017-04-09] MEDS: ATORVASTATIN CALCIUM 20 MG TABLET PO SCH (22:22)
[2017-04-09] MEDS: INSULIN GLARGINE,HUM.REC.ANLOG 300 UNIT/3 ML INSULN.PEN SUBCUT SCH (22:49)
[2017-04-10] MEDS: GABAPENTIN 300 MG CAPSULE PO SCH ×3 (05:40→22:42)
[2017-04-10] MEDS: LANSOPRAZOLE 30 MG TAB.RAP.DR PO SCH (05:40)
[2017-04-10 06:19] LABS: ABSOLUTE BASOPHILS # (AUTO) 0.1 10^3/uL (0.0-0.2); ABSOLUTE EOSINOPHILS # (AUTO) 0.5 10^3/uL (0.0-0.6); ABSOLUTE LYMPHOCYTES (AUTO) 1.3 10^3/uL (0.5-4.7); ABSOLUTE NEUT (AUTO) 5.1 10^3/uL (1.7-8.2); BASOPHILS % (AUTO) 1.2 % (0-2); EOSINOPHILS % (AUTO) 6.8 % (0-6); HEMATOCRIT 33.3 % (37.9-51.0); HEMOGLOBIN 11.5 g/dL (13.5-17.0); MEAN CORPUSCULAR HEMOGLOBIN 31.7 pg (27.0-33.4); MEAN CORPUSCULAR HGB CONC 34.7 g/dL (32.0-36.0); MEAN CORPUSCULAR VOLUME 91 fl (80-97); MONOCYTES % (AUTO) 12.6 % (3-13); PLATELET COUNT 234 10^3/uL (150-450); RED BLOOD COUNT 3.65 10^6/uL (4.35-5.55); RED CELL DISTRIBUTION WIDTH 13.7 % (11.5-14.0); SEGMENTED NEUTROPHILS % (AUTO) 63.4 % (42-78); TOTAL CELLS COUNTED % (AUTO) 100 %; WHITE BLOOD COUNT 8.1 10^3/uL (4.0-10.5)
[2017-04-10 06:29] LABS: ANION GAP 7 (5-19); BLOOD UREA NITROGEN 12 mg/dL (7-20); CALCIUM 8.4 mg/dL (8.4-10.2); CARBON DIOXIDE 29 mmol/L (22-30); CHLORIDE 96 mmol/L (98-107); GLUCOSE 128 mg/dL (75-110); POTASSIUM 4.1 mmol/L (3.6-5.0); SODIUM 131.6 mmol/L (137-145)
[2017-04-10] MEDS: ENOXAPARIN SODIUM INJ 40 MG/0.4 ML DISP.SYRIN SUBCUT SCH (09:43)
[2017-04-10] MEDS: IMIPENEM/CILASTATIN SODIUM 500 MG in NORMAL SALINE 100 ML IV SCH (09:43)
[2017-04-10] MEDS: LACTOBACILLUS ACIDOPHILUS 250 MG TAB PO SCH ×2 (09:44→18:24)
[2017-04-10] MEDS: OXYBUTYNIN CHLORIDE 5 MG TABLET PO SCH ×2 (09:45→18:22)
[2017-04-10] MEDS: MULTIVITAMIN TABLET PO SCH (09:45)
[2017-04-10] MEDS: ASCORBIC ACID 500 MG TABLET PO SCH ×2 (09:46→18:22)
[2017-04-10] MEDS: LISINOPRIL 10 MG TABLET PO SCH (09:46)
[2017-04-10] MEDS: INSULIN LISPRO 100 UNIT/ML 3 ML VIAL SUBCUT SCH ×3 (09:47→17:03)
[2017-04-10] MEDS: INSULIN GLARGINE,HUM.REC.ANLOG 300 UNIT/3 ML INSULN.PEN SUBCUT SCH ×2 (09:47→22:44)
[2017-04-10] MEDS: NORMAL SALINE 1000 ML 1,000 ML IV PRN (09:47)
[2017-04-10] MEDS: LINEZOLID 300 ML IV SCH ×2 (09:57→22:42)
[2017-04-10] MEDS: DOCUSATE SODIUM 100 MG CAPSULE PO SCH ×2 (09:58→18:24)
[2017-04-10] MEDS: INSULIN LISPRO 100 UNIT/ML 3 ML VIAL SUBCUT PRN ×2 (12:48→18:23)
[2017-04-10] MEDS ORDERED: PIPERACILLIN/TAZOBACTAM 3.375 GM VIAL IV SCH (13:45)
[2017-04-10] MEDS ORDERED: NYSTATIN TOPICAL POWDER 15 GM TP ONE (15:00)
--- NOTE | 2017-04-10 16:49 | PDOC PROGRESS REPORT ---
Subjective Progress Note for:: 04/10/17 Subjective:: Patient complains of feeling warm and with chills. Nurse reports redness in the groin area. Review of systems All organ systems evaluated and negative except as in subjective All significant laboratories and diagnostics have been reviewed Reason For Visit: RIGHT FOOT OSTEO,SEPSIS Physical Exam Vital Signs: Temp Pulse Resp BP Pulse Ox 99.7 F 78 20 129/54 H 100 04/10/17 03:48 04/10/17 03:48 04/10/17 03:48 04/10/17 03:48 04/10/17 03:48 Intake & Output 04/08/17 04/09/17 04/10/17 06:59 06:59 06:59 Intake Total 800 Output Total 450 310 Balance -450 490 General appearance: PRESENT: cooperative, obese Head exam: PRESENT: atraumatic, normocephalic Eye exam: PRESENT: EOMI, PERRLA Ear exam: PRESENT: normal external ear exam Neck exam: PRESENT: full ROM. ABSENT: JVD, lymphadenopathy, tenderness Respiratory exam: PRESENT: clear to auscultation elias Cardiovascular exam: PRESENT: RRR. ABSENT: diastolic murmur, systolic murmur Vascular exam: PRESENT: normal capillary refill GI/Abdominal exam: PRESENT: normal bowel sounds, soft. ABSENT: tenderness Extremities exam: PRESENT: full ROM. ABSENT: pedal edema Musculoskeletal exam: PRESENT: ambulatory Neurological exam: PRESENT: alert, awake, oriented to person, oriented to place , oriented to time, oriented to situation, CN II-XII grossly intact Psychiatric exam: PRESENT: appropriate affect, normal mood Skin exam: PRESENT: normal color, other - Right foot covered with clean dressings Results Laboratory Results: 04/10/17 05:10 04/10/17 05:10 04/09/17 04/10/17 04/10/17 19:30 05:10 05:10 WBC 8.1 RBC 3.65 L Hgb 11.5 L Hct 33.3 L MCV 91 MCH 31.7 MCHC 34.7 RDW 13.7 Plt Count 234 Seg Neutrophils % 63.4 Lymphocytes % 16.0 Monocytes % 12.6 Eosinophils % 6.8 H Basophils % 1.2 Absolute Neutrophils 5.1 Absolute Lymphocytes 1.3 Absolute Monocytes 1.0 Absolute Eosinophils 0.5 Absolute Basophils 0.1 Sodium 130.2 L 131.6 L Potassium 4.3 4.1 Chloride 96 L 96 L Carbon Dioxide 27 29 Anion Gap 7 7 BUN 13 12 Creatinine 0.63 0.70 Est GFR ( Amer) > 60 > 60 Est GFR (Non-Af Amer) > 60 > 60 Glucose 191 H 128 H Calcium 8.4 8.4 Magnesium 1.7 Impressions: Foot X-Ray 04/08/17 18:09 IMPRESSION: POST AMPUTATION CHANGE INVOLVING THE 1ST TOE ABOVE WITH RADIOGRAPHIC FINDINGS CONCERNING FOR RESIDUAL/ RECURRENT OSTEOMYELITIS OF THE REMAINDER OF THE 1ST PROXIMAL PHALANX. Assessment & Plan - Diagnosis (1) Cellulitis in diabetic foot Is this a current diagnosis for this admission?: Yes Plan: Polymicrobial as is usually the case. Continue Zyvox and discontinue meropenem and instead placed on Zosyn (2) Chronic anemia Is this a current diagnosis for this admission?: Yes Plan: To trend (3) Osteomyelitis of ankle or foot, right, acute Is this a current diagnosis for this admission?: Yes Plan: Tolerated surgery. To place on Zyvox and Zosyn (4) Type 2 diabetes mellitus Qualifiers: Diabetes mellitus complication status: with neurologic complications Diabetes mellitus complication detail: with autonomic neuropathy Diabetes mellitus snf insulin use: without snf use Qualified Code(s): E11.43 - Type 2 diabetes mellitus with diabetic autonomic (poly)neuropathy Is this a current diagnosis for this admission?: Yes Plan: Continue Humalog sliding scale and bedside glucose before meals and at bedtime. Hemoglobin A1c 6.1 (5) Cerebrovascular accident, old Is this a current diagnosis for this admission?: Yes Plan: Stable (6) Hyponatremia Is this a current diagnosis for this admission?: Yes Plan: Improving and to continue IV fluids. Trend (7) Dermatitis Is this a current diagnosis for this admission?: Yes Plan: Order nystatin powder (8) Bacteremia Is this a current diagnosis for this admission?: Yes Plan: Gram-positive cocci growing in 1 bottle. Likely a contaminant. Order echocardiogram - Time Time Spent with patient: 15-24 minutes Medications reviewed and adjusted accordingly: Yes Anticipated discharge: Home with Homehealth Within: within 72 hours - Inpatient Certification Based on my medical assessment, after consideration of the patient's comorbidities, presenting symptoms, or acuity I expect that the services needed warrant INPATIENT care.: Yes I certify that my determination is in accordance with my understanding of Medicare's requirements for reasonable and necessary INPATIENT services [42 CFR 412.3e].: Yes Medical Necessity: Need Close Monitoring Due to Risk of Patient Decompensation, Need for IV Antibiotics
[2017-04-10] MEDS: PIPERACILLIN SODIUM/TAZOBACTAM 3.375 GM in NORMAL SALINE 100 ML IV SCH ×2 (17:01→22:42)
[2017-04-10] MEDS ORDERED: NYSTATIN TOPICAL POWDER 15 GM TP SCH (18:00)
--- NOTE | 2017-04-10 22:06 | PDOC PROGRESS REPORT ---
Subjective Progress Note for:: 04/10/17 Subjective:: pod #1 S/P AMPUTATION OPEN RIGHT GREAT TOE No new surgical issues Reason For Visit: RIGHT FOOT OSTEO,SEPSIS Physical Exam Vital Signs: Temp Pulse Resp BP Pulse Ox 98.5 F 56 L 17 122/52 L 97 04/10/17 19:52 04/10/17 19:52 04/10/17 19:52 04/10/17 19:52 04/10/17 19:52 Intake & Output 04/09/17 04/10/17 04/11/17 06:59 06:59 06:59 Intake Total 1300 1640 Output Total 450 1760 1600 Balance -450 -460 40 Weight 102 kg General appearance: PRESENT: no acute distress Respiratory exam: PRESENT: clear to auscultation elias. ABSENT: rales, rhonchi, wheezes Cardiovascular exam: PRESENT: RRR. ABSENT: diastolic murmur, rubs, systolic murmur GI/Abdominal exam: PRESENT: normal bowel sounds, soft. ABSENT: distended, guarding, mass, organolmegaly, rebound, tenderness Extremities exam: PRESENT: other - right foot amputation wound 7.5cm x 2.5cm x 3cm, appears clean. still has edema and erythema of the foot but slightly better today, no purulent drainage Neurological exam: PRESENT: alert, awake, oriented to person, oriented to place , oriented to time, oriented to situation, CN II-XII grossly intact. ABSENT: motor sensory deficit Results Laboratory Results: 04/10/17 05:10 04/10/17 05:10 04/10/17 04/10/17 05:10 05:10 WBC 8.1 RBC 3.65 L Hgb 11.5 L Hct 33.3 L MCV 91 MCH 31.7 MCHC 34.7 RDW 13.7 Plt Count 234 Seg Neutrophils % 63.4 Lymphocytes % 16.0 Monocytes % 12.6 Eosinophils % 6.8 H Basophils % 1.2 Absolute Neutrophils 5.1 Absolute Lymphocytes 1.3 Absolute Monocytes 1.0 Absolute Eosinophils 0.5 Absolute Basophils 0.1 Sodium 131.6 L Potassium 4.1 Chloride 96 L Carbon Dioxide 29 Anion Gap 7 BUN 12 Creatinine 0.70 Est GFR ( Amer) > 60 Est GFR (Non-Af Amer) > 60 Glucose 128 H Calcium 8.4 Magnesium 1.7 Impressions: Foot X-Ray 04/08/17 18:09 IMPRESSION: POST AMPUTATION CHANGE INVOLVING THE 1ST TOE ABOVE WITH RADIOGRAPHIC FINDINGS CONCERNING FOR RESIDUAL/ RECURRENT OSTEOMYELITIS OF THE REMAINDER OF THE 1ST PROXIMAL PHALANX. Assessment & Plan - Diagnosis (1) History of amputation of right great toe Is this a current diagnosis for this admission?: Yes (2) Cellulitis in diabetic foot Is this a current diagnosis for this admission?: Yes (3) Osteomyelitis of ankle or foot, right, acute Is this a current diagnosis for this admission?: Yes (4) Diabetic foot ulcer Qualifiers: Diabetic foot ulcer location: unspecified part of foot Is this a current diagnosis for this admission?: Yes (5) Neuropathy Is this a current diagnosis for this admission?: Yes (6) Type 2 diabetes mellitus with diabetic autonomic (poly)neuropathy Qualifiers: Diabetes mellitus termite renewal inspector insulin use: without longterm use Qualified Code(s): E11.43 - Type 2 diabetes mellitus with diabetic autonomic (poly) neuropathy Is this a current diagnosis for this admission?: Yes - Plan Summary Plan Summary: wound vac was applied to the amputation wound. Plan will be to go home with a wound vac.
[2017-04-10] MEDS: NYSTATIN TOPICAL POWDER 15 GM TP SCH (22:42)
[2017-04-10] MEDS: ASPIRIN 81 MG TABLET, CHEWABLE PO SCH (22:42)
[2017-04-10] MEDS: ATORVASTATIN CALCIUM 20 MG TABLET PO SCH (22:42)
[2017-04-11] MEDS: PIPERACILLIN SODIUM/TAZOBACTAM 3.375 GM in NORMAL SALINE 100 ML IV SCH ×4 (03:54→20:59)
[2017-04-11] MEDS: LANSOPRAZOLE 30 MG TAB.RAP.DR PO SCH (05:45)
[2017-04-11] MEDS: GABAPENTIN 300 MG CAPSULE PO SCH ×3 (05:45→21:46)
[2017-04-11 06:37] LABS: ABSOLUTE BASOPHILS # (AUTO) 0.1 10^3/uL (0.0-0.2); ABSOLUTE EOSINOPHILS # (AUTO) 0.6 10^3/uL (0.0-0.6); ABSOLUTE LYMPHOCYTES (AUTO) 1.7 10^3/uL (0.5-4.7); ABSOLUTE NEUT (AUTO) 5.1 10^3/uL (1.7-8.2); EOSINOPHILS % (AUTO) 7.2 % (0-6); HEMATOCRIT 34.7 % (37.9-51.0); LYMPHOCYTES % (AUTO) 20.3 % (13-45); MEAN CORPUSCULAR HEMOGLOBIN 31.6 pg (27.0-33.4); MEAN CORPUSCULAR HGB CONC 34.6 g/dL (32.0-36.0); MEAN CORPUSCULAR VOLUME 91 fl (80-97); MONOCYTES % (AUTO) 11.9 % (3-13); PLATELET COUNT 263 10^3/uL (150-450); RED CELL DISTRIBUTION WIDTH 13.4 % (11.5-14.0); SEGMENTED NEUTROPHILS % (AUTO) 59.6 % (42-78); TOTAL CELLS COUNTED % (AUTO) 100 %; WHITE BLOOD COUNT 8.5 10^3/uL (4.0-10.5)
[2017-04-11 06:55] LABS: ANION GAP 9 (5-19); BLOOD UREA NITROGEN 10 mg/dL (7-20); CALCIUM 8.8 mg/dL (8.4-10.2); CARBON DIOXIDE 28 mmol/L (22-30); CHLORIDE 102 mmol/L (98-107); GLUCOSE 121 mg/dL (75-110); POTASSIUM 3.9 mmol/L (3.6-5.0); SODIUM 138.6 mmol/L (137-145)
[2017-04-11] MEDS: INSULIN LISPRO 100 UNIT/ML 3 ML VIAL SUBCUT SCH ×3 (09:20→15:19)
[2017-04-11] MEDS: ENOXAPARIN SODIUM INJ 40 MG/0.4 ML DISP.SYRIN SUBCUT SCH (09:56)
[2017-04-11] MEDS: MULTIVITAMIN TABLET PO SCH (09:58)
[2017-04-11] MEDS: ASCORBIC ACID 500 MG TABLET PO SCH ×2 (09:58→16:54)
[2017-04-11] MEDS: OXYBUTYNIN CHLORIDE 5 MG TABLET PO SCH ×2 (09:58→16:54)
[2017-04-11] MEDS: LISINOPRIL 10 MG TABLET PO SCH (09:59)
[2017-04-11] MEDS: LACTOBACILLUS ACIDOPHILUS 250 MG TAB PO SCH ×2 (10:00→16:54)
[2017-04-11] MEDS: DOCUSATE SODIUM 100 MG CAPSULE PO SCH ×2 (10:00→16:55)
[2017-04-11] MEDS: NYSTATIN TOPICAL POWDER 15 GM TP SCH ×2 (10:04→21:46)
[2017-04-11] MEDS: INSULIN GLARGINE,HUM.REC.ANLOG 300 UNIT/3 ML INSULN.PEN SUBCUT SCH ×2 (10:04→21:48)
--- NOTE | 2017-04-11 10:48 | PDOC PROGRESS REPORT ---
Subjective Progress Note for:: 04/11/17 Subjective:: Feels okay Reason For Visit: RIGHT FOOT OSTEO,SEPSIS Physical Exam Vital Signs: Temp Pulse Resp BP Pulse Ox 97.7 F 47 L 18 134/58 H 100 04/11/17 08:20 04/11/17 08:20 04/11/17 08:20 04/11/17 08:20 04/11/17 08:20 Intake & Output 04/10/17 04/11/17 04/12/17 06:59 06:59 06:59 Intake Total 1300 2220 Output Total 1760 5691 Balance -460 -3450 Weight 102 kg 109.6 kg General appearance: PRESENT: no acute distress, cooperative Extremities exam: PRESENT: other - Wound VAC in place. Mild surrounding erythema. Results Laboratory Results: 04/11/17 05:42 04/11/17 05:42 04/11/17 04/11/17 05:42 05:42 WBC 8.5 RBC 3.80 L Hgb 12.0 L Hct 34.7 L MCV 91 MCH 31.6 MCHC 34.6 RDW 13.4 Plt Count 263 Seg Neutrophils % 59.6 Lymphocytes % 20.3 Monocytes % 11.9 Eosinophils % 7.2 H Basophils % 1.0 Absolute Neutrophils 5.1 Absolute Lymphocytes 1.7 Absolute Monocytes 1.0 Absolute Eosinophils 0.6 Absolute Basophils 0.1 Sodium 138.6 Potassium 3.9 Chloride 102 Carbon Dioxide 28 Anion Gap 9 BUN 10 Creatinine 0.70 Est GFR ( Amer) > 60 Est GFR (Non-Af Amer) > 60 Glucose 121 H Calcium 8.8 Magnesium 1.9 Impressions: Foot X-Ray 04/08/17 18:09 IMPRESSION: POST AMPUTATION CHANGE INVOLVING THE 1ST TOE ABOVE WITH RADIOGRAPHIC FINDINGS CONCERNING FOR RESIDUAL/ RECURRENT OSTEOMYELITIS OF THE REMAINDER OF THE 1ST PROXIMAL PHALANX. Assessment & Plan - Diagnosis (1) Osteomyelitis of ankle or foot, right, acute Is this a current diagnosis for this admission?: Yes Plan: Status post ray amputation of the right great toe metatarsal. Currently managed being managed with antibiotics and wound VAC. When erythema has improved may discharge on p.o. antibiotics for couple more weeks. Follow-up in wound care clinic. Surgical service will sign off. Call us for any problems
[2017-04-11] MEDS: LINEZOLID 300 ML IV SCH (11:32)
[2017-04-11] MEDS: NORMAL SALINE 1000 ML 1,000 ML IV PRN (11:33)
[2017-04-11] MEDS: HYDROCODONE/ACETAMINOPHEN 7.5-325 MG TABLET PO PRN ×2 (13:14→18:46)
[2017-04-11] MEDS ORDERED: ACETAMINOPHEN 325 MG TABLET PO PRN (14:49)
[2017-04-11] MEDS ORDERED: ONDANSETRON HCL INJ/PF 4 MG/2 ML SDV IV PRN (15:00)
[2017-04-11] MEDS ORDERED: MAG HYDROX/AL HYDROX/SIMETH SUSP 30 ML UDCUP PO PRN (15:00)
--- NOTE | 2017-04-11 15:16 | PDOC PROGRESS REPORT ---
Subjective Progress Note for:: 04/11/17 Subjective:: Patient relates that he is not feeling feverish or having chills. He would like to have some coffee Review of systems All organ systems evaluated and negative except as in subjective All significant laboratories and diagnostics have been reviewed Reason For Visit: RIGHT FOOT OSTEO,SEPSIS Physical Exam Vital Signs: Temp Pulse Resp BP Pulse Ox 98.3 F 49 L 16 121/45 L 96 04/10/17 23:19 04/10/17 23:19 04/10/17 23:19 04/10/17 23:19 04/10/17 23:19 Intake & Output 04/09/17 04/10/17 04/11/17 06:59 06:59 06:59 Intake Total 1300 2220 Output Total 450 1760 5675 Balance -450 -695 -7337 Weight 102 kg 109.6 kg General appearance: PRESENT: cooperative, obese Head exam: PRESENT: atraumatic, normocephalic Eye exam: PRESENT: conjunctiva pink, EOMI, PERRLA Ear exam: PRESENT: normal external ear exam, TM's normal bilaterally Mouth exam: PRESENT: moist Neck exam: PRESENT: full ROM. ABSENT: JVD, lymphadenopathy, tenderness Respiratory exam: PRESENT: clear to auscultation elias. ABSENT: tachypnea, unlabored Cardiovascular exam: PRESENT: RRR. ABSENT: diastolic murmur, systolic murmur Vascular exam: PRESENT: normal capillary refill GI/Abdominal exam: PRESENT: normal bowel sounds, soft. ABSENT: tenderness Neurological exam: PRESENT: alert, awake, oriented to person, oriented to place , oriented to time, oriented to situation Psychiatric exam: PRESENT: appropriate affect, normal mood Skin exam: PRESENT: other - Redness and swelling of right foot much improved when compared to admission. Went back is noted in first metatarsal. Surrounding tissue appears pink Results Laboratory Results: 04/11/17 05:42 04/11/17 05:42 WBC 8.5 RBC 3.80 L Hgb 12.0 L Hct 34.7 L MCV 91 MCH 31.6 MCHC 34.6 RDW 13.4 Plt Count 263 Seg Neutrophils % 59.6 Lymphocytes % 20.3 Monocytes % 11.9 Eosinophils % 7.2 H Basophils % 1.0 Absolute Neutrophils 5.1 Absolute Lymphocytes 1.7 Absolute Monocytes 1.0 Absolute Eosinophils 0.6 Absolute Basophils 0.1 Impressions: Foot X-Ray 04/08/17 18:09 IMPRESSION: POST AMPUTATION CHANGE INVOLVING THE 1ST TOE ABOVE WITH RADIOGRAPHIC FINDINGS CONCERNING FOR RESIDUAL/ RECURRENT OSTEOMYELITIS OF THE REMAINDER OF THE 1ST PROXIMAL PHALANX. Assessment & Plan - Diagnosis (1) Cellulitis in diabetic foot Is this a current diagnosis for this admission?: Yes Plan: Polymicrobial as is usually the case. Continue Zosyn and Zyvox (2) Chronic anemia Is this a current diagnosis for this admission?: Yes Plan: To trend (3) Osteomyelitis of ankle or foot, right, acute Is this a current diagnosis for this admission?: Yes Plan: Tolerated surgery. Continue Zosyn and Zyvox (4) Type 2 diabetes mellitus Qualifiers: Diabetes mellitus complication status: with neurologic complications Diabetes mellitus complication detail: with autonomic neuropathy Diabetes mellitus retirement insulin use: without retirement use Qualified Code(s): E11.43 - Type 2 diabetes mellitus with diabetic autonomic (poly)neuropathy Is this a current diagnosis for this admission?: Yes Plan: Continue Humalog sliding scale and bedside glucose before meals and at bedtime. Hemoglobin A1c 6.1 (5) Cerebrovascular accident, old Is this a current diagnosis for this admission?: Yes Plan: Stable (6) Hyponatremia Is this a current diagnosis for this admission?: Yes Plan: Resolved. To discontinue IV fluids (7) Dermatitis Is this a current diagnosis for this admission?: Yes Plan: Continue nystatin powder (8) Bacteremia Is this a current diagnosis for this admission?: Yes Plan: Gram-positive cocci growing in 1 bottle. Likely a contaminant. Echocardiogram result pending - Time Time Spent with patient: 15-24 minutes Medications reviewed and adjusted accordingly: Yes Anticipated discharge: SNF Within: within 72 hours - Inpatient Certification Based on my medical assessment, after consideration of the patient's comorbidities, presenting symptoms, or acuity I expect that the services needed warrant INPATIENT care.: Yes I certify that my determination is in accordance with my understanding of Medicare's requirements for reasonable and necessary INPATIENT services [42 CFR 412.3e].: Yes Medical Necessity: Need Close Monitoring Due to Risk of Patient Decompensation, Need for IV Antibiotics
[2017-04-11] MEDS: INSULIN LISPRO 100 UNIT/ML 3 ML VIAL SUBCUT PRN (16:54)
--- NOTE | 2017-04-11 19:01 | XCELERA REPORT ---
[address] [address] Transthoracic Echocardiogram Report Name: FRANCHESKA SANTIAGO Age: 67 yrs Gender: Male : 1950 Patient Status: Inpatient Patient Location: [address] [place] [address] Study Date: 04/11/2017 11:05 AM Height: 73 in Weight: 224 lb BSA: 2.3 m2 Procedure: A complete two-dimensional transthoracic echocardiogram was performed (2D, M-mode, spectral and color flow Doppler). The study was technically difficult with many images being suboptimal in quality. Reason For Study: EVAL FOR ENDOCARDITIS Ordering Physician: JIL CORREA Performed By: Desi Rosenthal Interpretation Summary The left ventricular ejection fraction is normal. Doppler measurements suggest impaired left ventricular relaxation, which is associated with grade I/IV or mild diastolic dysfunction There is borderline concentric left ventricular hypertrophy. The left ventricle is grossly normal size. Wall motion cannot be accurately commented on, but no definite regional wall motion abnormalities noted. The right ventricular systolic function is normal. The right ventricle is mildly dilated. The right atrium is mildly dilated. The left atrium is mildly dilated. There is a mild amount of mitral regurgitation There is no mitral valve stenosis. No aortic regurgitation is present. There is no aortic valve stenosis There is a trace or physiologic amount of tricuspid regurgitation Tricuspid regurgitation jet envelope not well defined to measure RV systolic pressure accurately. The aortic root is not well visualized. The inferior vena cava appeared normal and decreased > 50% with respiration (RAP 5-10 mmHg) There is no pericardial effusion. No definite vegetations noted but cannot completely rule it out. No definite vegetations noted but if clinical suspicion is high, then consider FRANCA and multiple blood cultures. MMode/2D Measurements & Calculations RVDd: 3.0 cm LVIDd: 5.9 cm FS: 33.1 % Ao root diam: 3.3 cm IVSd: 0.88 cm LVIDs: 3.9 cm EDV(Teich): 173.4 ml LVPWd: 0.89 cm ESV(Teich): 67.8 ml Ao root area: 8.6 cm2 EF(Teich): 60.9 % LA dimension: 4.1 cm Doppler Measurements & Calculations MV E max mera: MV P1/2t max mera: Ao V2 max: LV V1 max P.9 cm/sec 88.4 cm/sec 141.6 cm/sec 3.9 mmHg MV A max mera: MV P1/2t: 109.7 msec Ao max PG: LV V1 max: 76.5 cm/sec 8.0 mmHg 98.2 cm/sec MV E/A: 1.1 MVA(P1/2t): 2.0 cm2 MV dec slope: 235.9 cm/sec2 MV dec time: 0.35 sec PA V2 max: TR max mera: 78.0 cm/sec 230.4 cm/sec PA max PG: TR max P.2 mmHg 2.4 mmHg Left Ventricle The left ventricle is grossly normal size. There is borderline concentric left ventricular hypertrophy. The left ventricular ejection fraction is normal. Doppler measurements suggest impaired left ventricular relaxation, which is associated with grade I/IV or mild diastolic dysfunction. Wall motion cannot be accurately commented on, but no definite regional wall motion abnormalities noted. Right Ventricle The right ventricle is mildly dilated. There is normal right ventricular wall thickness. The right ventricular systolic function is normal. Atria The right atrium is mildly dilated. The left atrium is mildly dilated. Interarterial septum not well visualized and not well dopplered. Cannot comment on ASD/PFO presence. Mitral Valve The mitral valve is grossly normal. There is no mitral valve stenosis. There is a mild amount of mitral regurgitation. Aortic Valve The aortic valve is grossly normal. There is no aortic valve stenosis. No aortic regurgitation is present. Tricuspid Valve The tricuspid valve is not well visualized, but is grossly normal. There is no tricuspid stenosis. There is a trace or physiologic amount of tricuspid regurgitation. Tricuspid regurgitation jet envelope not well defined to measure RV systolic pressure accurately. Pulmonic Valve The pulmonic valve is not well visualized. Great Vessels The aortic root is not well visualized. The inferior vena cava appeared normal and decreased > 50% with respiration (RAP 5-10 mmHg). Effusions There is no pericardial effusion. Incidental Findings No definite vegetations noted but cannot completely rule it out. Consider FRANCA if clinically indicated. No definite vegetations noted but if clinical suspicion is high, then consider FRANCA and multiple blood cultures. : JIL CORREA > Bryan Bailey
[2017-04-11] MEDS: LINEZOLID 600 MG TABLET PO SCH (21:45)
[2017-04-11] MEDS: ASPIRIN 81 MG TABLET, CHEWABLE PO SCH (21:45)
[2017-04-11] MEDS: ATORVASTATIN CALCIUM 20 MG TABLET PO SCH (21:46)
[2017-04-12] MEDS: PIPERACILLIN SODIUM/TAZOBACTAM 3.375 GM in NORMAL SALINE 100 ML IV SCH (03:58)
[2017-04-12] MEDS: GABAPENTIN 300 MG CAPSULE PO SCH ×3 (05:22→22:59)
[2017-04-12] MEDS: HYDROCODONE/ACETAMINOPHEN 7.5-325 MG TABLET PO PRN ×3 (05:23→23:04)
[2017-04-12] MEDS: LANSOPRAZOLE 30 MG TAB.RAP.DR PO SCH (05:23)
[2017-04-12] MEDS: INSULIN LISPRO 100 UNIT/ML 3 ML VIAL SUBCUT SCH ×3 (07:17→16:03)
[2017-04-12] MEDS: ENOXAPARIN SODIUM INJ 40 MG/0.4 ML DISP.SYRIN SUBCUT SCH (10:29)
[2017-04-12] MEDS: LISINOPRIL 10 MG TABLET PO SCH (10:30)
[2017-04-12] MEDS: LACTOBACILLUS ACIDOPHILUS 250 MG TAB PO SCH ×2 (10:30→18:05)
[2017-04-12] MEDS: DOCUSATE SODIUM 100 MG CAPSULE PO SCH ×2 (10:31→18:06)
[2017-04-12] MEDS: LINEZOLID 600 MG TABLET PO SCH ×2 (10:31→23:03)
[2017-04-12] MEDS: MULTIVITAMIN TABLET PO SCH (10:31)
[2017-04-12] MEDS: ASCORBIC ACID 500 MG TABLET PO SCH ×2 (10:31→18:05)
[2017-04-12] MEDS: OXYBUTYNIN CHLORIDE 5 MG TABLET PO SCH ×2 (10:31→18:06)
[2017-04-12] MEDS: INSULIN GLARGINE,HUM.REC.ANLOG 300 UNIT/3 ML INSULN.PEN SUBCUT SCH ×2 (10:32→23:35)
[2017-04-12] MEDS: NYSTATIN TOPICAL POWDER 15 GM TP SCH ×2 (10:32→23:45)
[2017-04-12] MEDS: HYDROMORPHONE HCL INJ/PF 2 MG/ML AMPULE IV PRN (12:40)
[2017-04-12] MEDS ORDERED: BENZONATATE 100 MG CAPSULE PO PRN (15:18)
[2017-04-12] MEDS ORDERED: ACETAMINOPHEN 325 MG TABLET PO PRN (15:19)
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
[2017-04-12] MEDS: LEVOFLOXACIN 500 MG TABLET PO SCH (18:05)
[2017-04-12] MEDS: ATORVASTATIN CALCIUM 20 MG TABLET PO SCH (22:59)
[2017-04-12] MEDS: ASPIRIN 81 MG TABLET, CHEWABLE PO SCH (22:59)
[2017-04-13] MEDS: GABAPENTIN 300 MG CAPSULE PO SCH ×3 (06:55→22:06)
[2017-04-13] MEDS: LANSOPRAZOLE 30 MG TAB.RAP.DR PO SCH (06:56)
[2017-04-13] MEDS: INSULIN LISPRO 100 UNIT/ML 3 ML VIAL SUBCUT SCH ×3 (07:44→15:02)
[2017-04-13] MEDS: NYSTATIN TOPICAL POWDER 15 GM TP SCH ×2 (09:33→22:07)
[2017-04-13] MEDS: LACTOBACILLUS ACIDOPHILUS 250 MG TAB PO SCH ×2 (09:34→17:04)
[2017-04-13] MEDS: ASCORBIC ACID 500 MG TABLET PO SCH ×2 (09:34→17:03)
[2017-04-13] MEDS: LINEZOLID 600 MG TABLET PO SCH ×2 (09:34→22:06)
[2017-04-13] MEDS: LISINOPRIL 10 MG TABLET PO SCH (09:34)
[2017-04-13] MEDS: DOCUSATE SODIUM 100 MG CAPSULE PO SCH ×2 (09:34→17:03)
[2017-04-13] MEDS: MULTIVITAMIN TABLET PO SCH (09:35)
[2017-04-13] MEDS: ENOXAPARIN SODIUM INJ 40 MG/0.4 ML DISP.SYRIN SUBCUT SCH (09:35)
[2017-04-13] MEDS: OXYBUTYNIN CHLORIDE 5 MG TABLET PO SCH ×2 (09:35→17:04)
[2017-04-13] MEDS: INSULIN GLARGINE,HUM.REC.ANLOG 300 UNIT/3 ML INSULN.PEN SUBCUT SCH ×2 (09:36→22:06)
--- NOTE | 2017-04-13 14:51 | PDOC PROGRESS REPORT ---
Subjective Progress Note for:: 04/13/17 Subjective:: feeling better and really wants to go home. wound vac in place. denies fevers/ chills. denies chest pain, palpitations, n/v/d. ROS: all systems reviewed, see above, remaining systems negative Reason For Visit: RIGHT FOOT OSTEO,SEPSIS Physical Exam Vital Signs: Temp Pulse Resp BP Pulse Ox 98.7 F 74 18 116/50 L 93 04/13/17 12:00 04/13/17 12:00 04/13/17 12:00 04/13/17 12:00 04/13/17 12:00 Intake & Output 04/12/17 04/13/17 04/14/17 06:59 06:59 06:59 Intake Total 6433 Output Total 3725 4350 Balance 2708 -4350 Weight 109.5 kg 109.5 kg General appearance: PRESENT: no acute distress, well-developed, well-nourished Head exam: PRESENT: atraumatic, normocephalic Eye exam: PRESENT: EOMI. ABSENT: scleral icterus Mouth exam: PRESENT: moist, neck supple Neck exam: PRESENT: full ROM. ABSENT: tracheal deviation Respiratory exam: PRESENT: clear to auscultation elias, unlabored. ABSENT: accessory muscle use, rhonchi, wheezes Cardiovascular exam: PRESENT: RRR. ABSENT: tachycardia Pulses: PRESENT: normal radial pulses GI/Abdominal exam: PRESENT: normal bowel sounds, soft. ABSENT: tenderness Neurological exam: PRESENT: alert, awake, oriented to person, oriented to place , oriented to time, oriented to situation Psychiatric exam: PRESENT: appropriate affect, normal mood Skin exam: PRESENT: other - left lower wound with vac in place and scant amt of purulent material present; mild surrounding erythema, reportedly markedly improved from before. no heat or tenderness tosurrounding tissues Results Laboratory Results: 04/11/17 05:42 04/11/17 05:42 Assessment & Plan - Diagnosis (1) Osteomyelitis of ankle or foot, right, acute Is this a current diagnosis for this admission?: Yes (2) Bacteremia Is this a current diagnosis for this admission?: No (3) Cellulitis in diabetic foot Is this a current diagnosis for this admission?: Yes (4) Chronic anemia Is this a current diagnosis for this admission?: Yes - Time Time Spent with patient: 35 or more minutes - Plan Summary Plan Summary: continues on levaquin and zyvox awaiting resolution of erythema and edema of surrounding tissues, probably home Saturday with short course of abx; nothing further on cultures, MSSA found in 1 of 2 bld cultures from presentation but repeats negative and no veggie on echo.
[2017-04-13] MEDS: LEVOFLOXACIN 500 MG TABLET PO SCH (17:03)
[2017-04-13] MEDS: INSULIN LISPRO 100 UNIT/ML 3 ML VIAL SUBCUT PRN ×2 (17:04→22:06)
[2017-04-13] MEDS: ASPIRIN 81 MG TABLET, CHEWABLE PO SCH (22:06)
[2017-04-13] MEDS: ATORVASTATIN CALCIUM 20 MG TABLET PO SCH (22:06)
[2017-04-14] MEDS: GABAPENTIN 300 MG CAPSULE PO SCH ×3 (06:05→21:11)
[2017-04-14] MEDS: LANSOPRAZOLE 30 MG TAB.RAP.DR PO SCH (06:05)
[2017-04-14] MEDS: INSULIN LISPRO 100 UNIT/ML 3 ML VIAL SUBCUT SCH ×3 (07:37→15:27)
[2017-04-14] MEDS: INSULIN GLARGINE,HUM.REC.ANLOG 300 UNIT/3 ML INSULN.PEN SUBCUT SCH ×2 (09:11→21:12)
[2017-04-14] MEDS: NYSTATIN TOPICAL POWDER 15 GM TP SCH ×2 (09:31→21:11)
[2017-04-14] MEDS: ASCORBIC ACID 500 MG TABLET PO SCH ×2 (09:31→16:58)
[2017-04-14] MEDS: LISINOPRIL 10 MG TABLET PO SCH (09:32)
[2017-04-14] MEDS: LACTOBACILLUS ACIDOPHILUS 250 MG TAB PO SCH ×2 (09:32→16:59)
[2017-04-14] MEDS: DOCUSATE SODIUM 100 MG CAPSULE PO SCH ×2 (09:32→16:59)
[2017-04-14] MEDS: ENOXAPARIN SODIUM INJ 40 MG/0.4 ML DISP.SYRIN SUBCUT SCH (09:32)
[2017-04-14] MEDS: LINEZOLID 600 MG TABLET PO SCH ×2 (09:32→21:11)
[2017-04-14] MEDS: OXYBUTYNIN CHLORIDE 5 MG TABLET PO SCH ×2 (09:33→16:59)
[2017-04-14] MEDS: MULTIVITAMIN TABLET PO SCH (09:33)
--- NOTE | 2017-04-14 15:51 | PDOC PROGRESS REPORT ---
Subjective Progress Note for:: 04/14/17 Subjective:: feeling better and still really wants to go home. wound vac in place with < 50ml last 24hrs. denies fevers/chills, chest pain, palpitations, n/v/d. ROS: all systems reviewed, see above, remaining systems negative Reason For Visit: RIGHT FOOT OSTEO,SEPSIS Physical Exam Vital Signs: Temp Pulse Resp BP Pulse Ox 98.5 F 78 18 110/57 L 92 04/14/17 10:45 04/14/17 10:45 04/14/17 10:45 04/14/17 10:45 04/14/17 00:45 Intake & Output 04/13/17 04/14/17 04/15/17 06:59 06:59 06:59 Intake Total 1330 Output Total 4350 3850 Balance -4350 -2520 Weight 109.5 kg 109.5 kg General appearance: PRESENT: no acute distress, well-developed, well-nourished Neck exam: PRESENT: full ROM. ABSENT: tracheal deviation Respiratory exam: PRESENT: clear to auscultation elias, unlabored. ABSENT: accessory muscle use, rhonchi, wheezes Cardiovascular exam: PRESENT: RRR. ABSENT: tachycardia Pulses: PRESENT: normal radial pulses GI/Abdominal exam: PRESENT: normal bowel sounds, soft. ABSENT: tenderness Neurological exam: PRESENT: alert, awake, oriented to person, oriented to place , oriented to time, oriented to situation Psychiatric exam: PRESENT: appropriate affect, normal mood Skin exam: PRESENT: other - left lower wound with vac in place and scant amt of purulent material present; mild surrounding edema and erythema dorsum of the foot. no heat or tenderness to surrounding tissues Results Laboratory Results: 04/11/17 05:42 04/11/17 05:42 04/09/17 03:23 Blood Blood Culture - Final NO GROWTH IN 5 DAYS Assessment & Plan - Diagnosis (1) Osteomyelitis of ankle or foot, right, acute Is this a current diagnosis for this admission?: Yes (2) Bacteremia Is this a current diagnosis for this admission?: No (3) Cellulitis in diabetic foot Is this a current diagnosis for this admission?: Yes (4) Chronic anemia Is this a current diagnosis for this admission?: Yes - Time Time Spent with patient: 25-34 minutes - Plan Summary Plan Summary: continues on levaquin and zyvox awaiting resolution of erythema and edema of surrounding tissues, probably home Saturday with short course of oral abx; nothing further on cultures, MSSA also susc to FQs found in 1 of 2 bld cultures from presentation but repeats negative and no veggie on echo.
[2017-04-14] MEDS: LEVOFLOXACIN 500 MG TABLET PO SCH (16:59)
[2017-04-14] MEDS: INSULIN LISPRO 100 UNIT/ML 3 ML VIAL SUBCUT PRN (16:59)
[2017-04-14] MEDS: HYDROCODONE/ACETAMINOPHEN 7.5-325 MG TABLET PO PRN (19:55)
[2017-04-14] MEDS: ASPIRIN 81 MG TABLET, CHEWABLE PO SCH (21:11)
[2017-04-14] MEDS: ATORVASTATIN CALCIUM 20 MG TABLET PO SCH (21:11)
[2017-04-15] MEDS: HYDROCODONE/ACETAMINOPHEN 7.5-325 MG TABLET PO PRN (05:54)
[2017-04-15] MEDS: LANSOPRAZOLE 30 MG TAB.RAP.DR PO SCH (05:54)
[2017-04-15] MEDS: GABAPENTIN 300 MG CAPSULE PO SCH ×3 (05:54→21:22)
[2017-04-15] MEDS: LACTOBACILLUS ACIDOPHILUS 250 MG TAB PO SCH ×2 (09:48→17:09)
[2017-04-15] MEDS: MULTIVITAMIN TABLET PO SCH (09:48)
[2017-04-15] MEDS: LISINOPRIL 10 MG TABLET PO SCH (09:48)
[2017-04-15] MEDS: ASCORBIC ACID 500 MG TABLET PO SCH ×2 (09:49→17:09)
[2017-04-15] MEDS: INSULIN LISPRO 100 UNIT/ML 3 ML VIAL SUBCUT SCH ×3 (09:49→17:10)
[2017-04-15] MEDS: LINEZOLID 600 MG TABLET PO SCH ×2 (09:49→21:22)
[2017-04-15] MEDS: OXYBUTYNIN CHLORIDE 5 MG TABLET PO SCH ×2 (09:49→17:10)
[2017-04-15] MEDS: DOCUSATE SODIUM 100 MG CAPSULE PO SCH ×2 (09:49→17:09)
[2017-04-15] MEDS: ENOXAPARIN SODIUM INJ 40 MG/0.4 ML DISP.SYRIN SUBCUT SCH (09:50)
[2017-04-15] MEDS ORDERED: INSULIN GLARGINE,HUM.REC.ANLOG 1,000 UNIT/10 ML UNIT SUBCUT ONE (11:52)
[2017-04-15] MEDS: INSULIN GLARGINE,HUM.REC.ANLOG 300 UNIT/3 ML INSULN.PEN SUBCUT SCH (11:58)
[2017-04-15] MEDS: NYSTATIN TOPICAL POWDER 15 GM TP SCH ×2 (12:09→21:19)
[2017-04-15] MEDS: LEVOFLOXACIN 500 MG TABLET PO SCH (17:09)
--- NOTE | 2017-04-15 19:10 | PDOC PROGRESS REPORT ---
Subjective Progress Note for:: 04/15/17 Subjective:: This is a follow-up visit for osteomyelitis of the toe. Patient has had no acute events overnight. There is some discrepancy as to management of his diabetes. Hemoglobin A1c checked was 5 and the patient had been on Januvia and metformin at home. His daughter is at bedside and questions as to why he is on Lantus when he had been taken off of this a couple of years ago. Reason For Visit: RIGHT FOOT OSTEO,SEPSIS Physical Exam Vital Signs: Temp Pulse Resp BP Pulse Ox 98.8 F 75 18 116/60 97 04/15/17 15:50 04/15/17 15:50 04/15/17 15:50 04/15/17 15:50 04/15/17 15:50 Intake & Output 04/14/17 04/15/17 04/16/17 06:59 06:59 06:59 Intake Total 1330 1476 810 Output Total 3850 2750 900 Balance -8900 -0454 -90 Weight 109.5 kg 106.8 kg GENERAL: This is a well-developed well-nourished appearing elderly white male resting in bed currently in no acute distress. HEART: [Regular rate and rhythm. No murmurs, rubs or gallops.] LUNGS: [Clear to auscultation bilaterally with equal rise and fall of the chest. ] ABDOMEN: [Soft, nontender, nondistended with normoactive bowel sounds] EXTREMETIES: [No clubbing, cyanosis or edema. 2+ peripheral pulses bilaterally. Wound VAC in place on the right stump of the great toe. Multiple toes are missing from each foot. : White catheter is in place and draining song colored urine.] NEURO: [Awake, alert and oriented 3. Cranial nerves II through XII are grossly intact.] Results Laboratory Results: 04/11/17 05:42 04/11/17 05:42 04/10/17 16:50 Blood Blood Culture - Final NO GROWTH IN 5 DAYS 04/10/17 14:35 Blood Blood Culture - Final NO GROWTH IN 5 DAYS Impressions: Foot X-Ray 04/08/17 18:09 IMPRESSION: POST AMPUTATION CHANGE INVOLVING THE 1ST TOE ABOVE WITH RADIOGRAPHIC FINDINGS CONCERNING FOR RESIDUAL/ RECURRENT OSTEOMYELITIS OF THE REMAINDER OF THE 1ST PROXIMAL PHALANX. Assessment & Plan - Diagnosis (1) Bacteremia Is this a current diagnosis for this admission?: No Plan: Bacteremia has cleared and resolved. (2) Cellulitis in diabetic foot Is this a current diagnosis for this admission?: Yes Plan: Patient is on Levaquin and Linezolid. (3) Osteomyelitis of ankle or foot, right, acute Is this a current diagnosis for this admission?: Yes Plan: Patient is on Levaquin and Linezolid. Patient should have a total of 6 weeks of antibiotics for osteomyelitis. His wound VAC is in place that he should follow-up at the wound clinic. (4) Type 2 diabetes mellitus Qualifiers: Diabetes mellitus complication status: with neurologic complications Diabetes mellitus complication detail: with autonomic neuropathy Diabetes mellitus intermediate card tender insulin use: without intermediate card tender use Qualified Code(s): E11.43 - Type 2 diabetes mellitus with diabetic autonomic (poly)neuropathy Is this a current diagnosis for this admission?: Yes Plan: Discontinue Lantus. Continue with Januvia. Continue metformin as an outpatient. Hemoglobin A1c is 5 on his home regimen and this is more than satisfactory. - Time Time Spent with patient: 15-24 minutes
[2017-04-15] MEDS: ASPIRIN 81 MG TABLET, CHEWABLE PO SCH (21:21)
[2017-04-15] MEDS: ATORVASTATIN CALCIUM 20 MG TABLET PO SCH (21:22)
[2017-04-15] MEDS ORDERED: INSULIN GLARGINE,HUM.REC.ANLOG 300 UNIT/3 ML INSULN.PEN SUBCUT SCH (22:00)
[2017-04-15] MEDS ORDERED: INSULIN GLARGINE,HUM.REC.ANLOG 1,000 UNIT/10 ML UNIT SUBCUT SCH (22:00)
[2017-04-16] MEDS: LANSOPRAZOLE 30 MG TAB.RAP.DR PO SCH (05:09)
[2017-04-16] MEDS: GABAPENTIN 300 MG CAPSULE PO SCH ×3 (05:09→21:19)
[2017-04-16] MEDS: LISINOPRIL 10 MG TABLET PO SCH (10:05)
[2017-04-16] MEDS: DOCUSATE SODIUM 100 MG CAPSULE PO SCH ×2 (10:05→17:37)
[2017-04-16] MEDS: ENOXAPARIN SODIUM INJ 40 MG/0.4 ML DISP.SYRIN SUBCUT SCH (10:05)
[2017-04-16] MEDS: MULTIVITAMIN TABLET PO SCH (10:05)
[2017-04-16] MEDS: OXYBUTYNIN CHLORIDE 5 MG TABLET PO SCH ×2 (10:05→17:36)
[2017-04-16] MEDS: INSULIN LISPRO 100 UNIT/ML 3 ML VIAL SUBCUT SCH ×3 (10:06→16:49)
[2017-04-16] MEDS: SITAGLIPTIN PHOSPHATE 50 MG TABLET PO SCH (10:06)
[2017-04-16] MEDS: LACTOBACILLUS ACIDOPHILUS 250 MG TAB PO SCH ×2 (10:06→17:36)
[2017-04-16] MEDS: ASCORBIC ACID 500 MG TABLET PO SCH ×2 (10:06→17:35)
[2017-04-16] MEDS: LINEZOLID 600 MG TABLET PO SCH ×2 (10:06→21:19)
[2017-04-16] MEDS: NYSTATIN TOPICAL POWDER 15 GM TP SCH ×2 (10:07→21:21)
--- NOTE | 2017-04-16 15:57 | PDOC PROGRESS REPORT ---
Subjective Progress Note for:: 04/16/17 Subjective:: Pt states that he is feeling well. Pt states that he would like to go home. Reason For Visit: RIGHT FOOT OSTEO,SEPSIS Physical Exam Vital Signs: Temp Pulse Resp BP Pulse Ox 98.2 F 77 18 115/67 94 04/16/17 12:15 04/16/17 12:15 04/16/17 12:15 04/16/17 12:15 04/16/17 12:15 Intake & Output 04/15/17 04/16/17 04/17/17 06:59 06:59 06:59 Intake Total 1476 815 Output Total 2750 900 Balance -1274 -85 Weight 106.8 kg 98.2 kg General appearance: PRESENT: no acute distress, well-developed, well-nourished Head exam: PRESENT: atraumatic, normocephalic Eye exam: PRESENT: conjunctiva pink, EOMI. ABSENT: scleral icterus Ear exam: PRESENT: normal external ear exam Mouth exam: PRESENT: moist, tongue midline Neck exam: ABSENT: carotid bruit, JVD, lymphadenopathy, thyromegaly Respiratory exam: PRESENT: clear to auscultation elias. ABSENT: rales, rhonchi, wheezes Cardiovascular exam: PRESENT: RRR. ABSENT: diastolic murmur, rubs, systolic murmur Pulses: PRESENT: normal dorsalis pedis pul Vascular exam: PRESENT: normal capillary refill GI/Abdominal exam: PRESENT: normal bowel sounds, soft. ABSENT: distended, guarding, mass, organolmegaly, rebound, tenderness Rectal exam: PRESENT: deferred Extremities exam: PRESENT: other - Wound vac in place on right stump of great toe.. ABSENT: calf tenderness, clubbing, pedal edema Musculoskeletal exam: PRESENT: other - Wound Vac in place on right stump of great toe. Neurological exam: PRESENT: alert, awake, oriented to person, oriented to place , oriented to time, oriented to situation, CN II-XII grossly intact. ABSENT: motor sensory deficit Psychiatric exam: PRESENT: appropriate affect, normal mood. ABSENT: homicidal ideation, suicidal ideation Skin exam: PRESENT: dry, intact, warm, other - wound vac in place.. ABSENT: cyanosis, rash Results Laboratory Results: 04/11/17 05:42 04/11/17 05:42 04/10/17 16:50 Blood Blood Culture - Final NO GROWTH IN 5 DAYS 04/10/17 14:35 Blood Blood Culture - Final NO GROWTH IN 5 DAYS Impressions: Foot X-Ray 04/08/17 18:09 IMPRESSION: POST AMPUTATION CHANGE INVOLVING THE 1ST TOE ABOVE WITH RADIOGRAPHIC FINDINGS CONCERNING FOR RESIDUAL/ RECURRENT OSTEOMYELITIS OF THE REMAINDER OF THE 1ST PROXIMAL PHALANX. Assessment & Plan - Diagnosis (1) Bacteremia Is this a current diagnosis for this admission?: No Plan: Secondary to Staph Aureus: Will continue Zyvox. (2) Osteomyelitis of ankle or foot, right, acute Is this a current diagnosis for this admission?: Yes Plan: Will continue Zyvox and Levaquin for 6 weeks. 2 D echo demonstrated on evidence of vegetation. Due to pt requiring 6 weeks of antibiotics will not proceed with FRANCA unless has additional sequelae that supports endocarditis (3) Type 2 diabetes mellitus Qualifiers: Diabetes mellitus complication status: with neurologic complications Diabetes mellitus complication detail: with autonomic neuropathy Diabetes mellitus fpc insulin use: without termite technician use Qualified Code(s): E11.43 - Type 2 diabetes mellitus with diabetic autonomic (poly)neuropathy Is this a current diagnosis for this admission?: Yes Plan: Will continue current medications. (4) Debility Is this a current diagnosis for this admission?: Yes Plan: Will have PT/OT evaluation and treatment. - Time Time Spent with patient: 15-24 minutes
[2017-04-16] MEDS: LEVOFLOXACIN 500 MG TABLET PO SCH (17:35)
[2017-04-16] MEDS: ASPIRIN 81 MG TABLET, CHEWABLE PO SCH (21:20)
[2017-04-16] MEDS: ATORVASTATIN CALCIUM 20 MG TABLET PO SCH (21:20)
[2017-04-17] MEDS: GABAPENTIN 300 MG CAPSULE PO SCH (05:29)
[2017-04-17] MEDS: LANSOPRAZOLE 30 MG TAB.RAP.DR PO SCH (05:30)
[2017-04-17 07:07] LABS: ALANINE AMINOTRANSFERASE 38 U/L (21-72); ALBUMIN 3.4 g/dL (3.5-5.0); ALKALINE PHOSPHATASE 74 U/L (38-126); ANION GAP 12 (5-19); ASPARTATE AMINO TRANSFERASE 32 U/L (17-59); BILIRUBIN,DIRECT 0.2 mg/dL (0.0-0.4); BILIRUBIN,TOTAL 0.3 mg/dL (0.2-1.3); BLOOD UREA NITROGEN 24 mg/dL (7-20); CARBON DIOXIDE 24 mmol/L (22-30); CHLORIDE 101 mmol/L (98-107); GLUCOSE 123 mg/dL (75-110); POTASSIUM 4.2 mmol/L (3.6-5.0); SODIUM 136.6 mmol/L (137-145); TOTAL PROTEIN 6.4 g/dL (6.3-8.2)
[2017-04-17 07:16] LABS: ABSOLUTE BASOPHILS # (AUTO) 0.2 10^3/uL (0.0-0.2); ABSOLUTE EOSINOPHILS # (AUTO) 0.8 10^3/uL (0.0-0.6); ABSOLUTE LYMPHOCYTES (AUTO) 2.2 10^3/uL (0.5-4.7); ABSOLUTE MONOCYTES (AUTO) 0.8 10^3/uL (0.1-1.4); ABSOLUTE NEUT (AUTO) 7.1 10^3/uL (1.7-8.2); BASOPHILS % (AUTO) 1.4 % (0-2); EOSINOPHILS % (AUTO) 6.8 % (0-6); HEMATOCRIT 36.6 % (37.9-51.0); HEMOGLOBIN 12.5 g/dL (13.5-17.0); MEAN CORPUSCULAR HGB CONC 34.1 g/dL (32.0-36.0); MEAN CORPUSCULAR VOLUME 91 fl (80-97); MONOCYTES % (AUTO) 7.6 % (3-13); PLATELET COUNT 347 10^3/uL (150-450); RED BLOOD COUNT 4.04 10^6/uL (4.35-5.55); RED CELL DISTRIBUTION WIDTH 13.6 % (11.5-14.0); SEGMENTED NEUTROPHILS % (AUTO) 64.2 % (42-78); TOTAL CELLS COUNTED % (AUTO) 100 %; WHITE BLOOD COUNT 11.1 10^3/uL (4.0-10.5)
[2017-04-17] MEDS: NYSTATIN TOPICAL POWDER 15 GM TP SCH (10:24)
[2017-04-17] MEDS: INSULIN LISPRO 100 UNIT/ML 3 ML VIAL SUBCUT SCH ×2 (10:24→10:57)
[2017-04-17] MEDS: LACTOBACILLUS ACIDOPHILUS 250 MG TAB PO SCH (10:26)
[2017-04-17] MEDS: DOCUSATE SODIUM 100 MG CAPSULE PO SCH (10:26)
[2017-04-17] MEDS: SITAGLIPTIN PHOSPHATE 50 MG TABLET PO SCH (10:26)
[2017-04-17] MEDS: ASCORBIC ACID 500 MG TABLET PO SCH (10:26)
[2017-04-17] MEDS: OXYBUTYNIN CHLORIDE 5 MG TABLET PO SCH (10:26)
[2017-04-17] MEDS: MULTIVITAMIN TABLET PO SCH (10:26)
[2017-04-17] MEDS: LINEZOLID 600 MG TABLET PO SCH (10:27)
[2017-04-17] MEDS: ENOXAPARIN SODIUM INJ 40 MG/0.4 ML DISP.SYRIN SUBCUT SCH (10:27)
[2017-04-17] MEDS: LISINOPRIL 10 MG TABLET PO SCH (10:57)
--- NOTE | 2017-04-17 13:29 | PDOC DISCHARGE SUMMARY ---
General - Admit/Disc Date/PCP Admission Date/Primary Care Provider: 04/08/17 22:19 WIN GALLEGOS NP Discharge Date: 04/17/17 - Discharge Diagnosis (1) Bacteremia Is this a current diagnosis for this admission?: Yes Summary: Secondary to staph aureus: Patient will be on the nasal lid for total of 6 weeks with stop date being May 29. (2) Osteomyelitis of ankle or foot, right, acute Is this a current diagnosis for this admission?: Yes Summary: Status post amputation of right great toe with wound VAC in place: Patient will be on linezolid for total of 6 weeks patient stop date is May 29 (3) Type 2 diabetes mellitus Is this a current diagnosis for this admission?: Yes Summary: Patient will resume home medications. (4) Debility Is this a current diagnosis for this admission?: Yes Summary: Daughter and patient requested to be discharged home therefore will arrange home health for wound care and PT OT - Additional Information Resuscitation Status: Full Code Discharge Diet: Cardiac, Diabetic Discharge Activity: Activity As Tolerated Prescriptions: Linezolid [Zyvox 600 mg Tablet] 600 mg PO Q12 #70 tablet Nystatin [Mycostatin Topical Powder 15 gm] 1 applic TP Q12 #1 bottle Home Medications: Aspirin [Aspirin EC] 81 mg PO DAILY 04/10/17 Atorvastatin Calcium [Lipitor 40 mg Tablet] 40 mg PO QHS 04/10/17 Ferrous Sulfate 324 mg PO TID 04/10/17 Gabapentin [Neurontin] 800 mg PO Q8 04/10/17 Hydrocodone/Acetaminophen [[place] 7.5-325 mg Tablet] 1 tab PO Q8 04/10/17 Lisinopril [Prinivil 10 mg Tablet] 10 mg PO DAILY 04/10/17 Omeprazole 20 mg PO DAILY 04/10/17 Oxybutynin Chloride [Ditropan 5 mg Tablet] 5 mg PO DAILY 04/10/17 Polyethylene Glycol 3350 [Miralax Powder 17 gm/Packet] 1 packet PO DAILY Sitagliptin Phosphate [Januvia] 100 mg PO DAILY 04/10/17 Acetaminophen [Tylenol 325 mg Tablet] 325 mg PO Q4HP PRN tablet 04/17/17 Ascorbic Acid [Vitamin C 500 mg Tablet] 500 mg PO BID tablet 04/17/17 Aspirin [Aspirin 81 mg Chewable Tablet] 81 mg PO QHS tab.chew 04/17/17 Linezolid [Zyvox 600 mg Tablet] 600 mg PO Q12 #70 tablet 04/17/17 Nystatin [Mycostatin Topical Powder 15 gm] 1 applic TP Q12 #1 bottle 04/17/17 History of Present Illness Patient complains of: Right foot infection History of Present Illness: FRANCHESKA SANTIAGO is a 67 year old male presented to hospital with complaint of right foot infection. Patient was seen by Ortho which decided to amputate patient's right great toe due to osteomyelitis. Patient had blood cultures that demonstrated staph aureus patient did have a 2D echo that demonstrated no evidence of vegetations. FRANCA was not ordered due to patient requiring 6 weeks of p.o. antibiotics. Recommended that if patient has any new sequelae that would suggest endocarditis will proceed with FRANCA at that time. She has had subsequent blood cultures that have demonstrated no growth. Hospital Course Hospital Course: FRANCHESKA SANTIAGO is a 67 year old male presented to hospital with complaint of right foot infection. Patient was seen by Ortho which decided to amputate patient's right great toe due to osteomyelitis. Patient had blood cultures that demonstrated staph aureus patient did have a 2D echo that demonstrated no evidence of vegetations. FRANCA was not ordered due to patient requiring 6 weeks of p.o. antibiotics. Recommended that if patient has any new sequelae that would suggest endocarditis will proceed with FRANCA at that time. She has had subsequent blood cultures that have demonstrated no growth. Physical Exam Vital Signs: Temp Pulse Resp BP Pulse Ox 97.6 F 79 18 124/53 L 94 04/17/17 12:00 04/17/17 12:00 04/17/17 12:00 04/17/17 12:00 04/17/17 12:00 Intake & Output 04/16/17 04/17/17 04/18/17 06:59 06:59 06:59 Intake Total 815 1540 Output Total 900 Balance -85 1540 Weight 98.2 kg 100.3 kg General appearance: PRESENT: no acute distress, well-developed, well-nourished Head exam: PRESENT: atraumatic, normocephalic Eye exam: PRESENT: conjunctiva pink, EOMI. ABSENT: scleral icterus Ear exam: PRESENT: normal external ear exam Mouth exam: PRESENT: moist, tongue midline Neck exam: ABSENT: carotid bruit, JVD, lymphadenopathy, thyromegaly Respiratory exam: PRESENT: clear to auscultation elias. ABSENT: rales, rhonchi, wheezes Cardiovascular exam: PRESENT: RRR. ABSENT: diastolic murmur, rubs, systolic murmur Pulses: PRESENT: normal dorsalis pedis pul Vascular exam: PRESENT: normal capillary refill GI/Abdominal exam: PRESENT: normal bowel sounds, soft. ABSENT: distended, guarding, mass, organolmegaly, rebound, tenderness Rectal exam: PRESENT: deferred Extremities exam: PRESENT: other - Right great toe status post limitation with wound VAC in place Neurological exam: PRESENT: alert, awake, oriented to person, oriented to place , oriented to time, oriented to situation, CN II-XII grossly intact. ABSENT: motor sensory deficit Psychiatric exam: PRESENT: appropriate affect, normal mood. ABSENT: homicidal ideation, suicidal ideation Skin exam: PRESENT: other - Wound VAC in place at site of amputation of right great toe Results Laboratory Results: 04/17/17 04:47 04/17/17 04:47 04/17/17 04/17/17 04:47 04:47 WBC 11.1 H RBC 4.04 L Hgb 12.5 L Hct 36.6 L MCV 91 MCH 31.0 MCHC 34.1 RDW 13.6 Plt Count 347 Seg Neutrophils % 64.2 Lymphocytes % 20.0 Monocytes % 7.6 Eosinophils % 6.8 H Basophils % 1.4 Absolute Neutrophils 7.1 Absolute Lymphocytes 2.2 Absolute Monocytes 0.8 Absolute Eosinophils 0.8 H Absolute Basophils 0.2 Sodium 136.6 L Potassium 4.2 Chloride 101 Carbon Dioxide 24 Anion Gap 12 BUN 24 H Creatinine 0.76 Est GFR ( Amer) > 60 Est GFR (Non-Af Amer) > 60 Glucose 123 H Calcium 9.0 Magnesium 2.1 Total Bilirubin 0.3 AST 32 ALT 38 Alkaline Phosphatase 74 Total Protein 6.4 Albumin 3.4 L Impressions: Foot X-Ray 04/08/17 18:09 IMPRESSION: POST AMPUTATION CHANGE INVOLVING THE 1ST TOE ABOVE WITH RADIOGRAPHIC FINDINGS CONCERNING FOR RESIDUAL/ RECURRENT OSTEOMYELITIS OF THE REMAINDER OF THE 1ST PROXIMAL PHALANX. Qualifiers - * [place]INT BEING DISCHARGED WITH ANY OF THE FOLLOWING DIAGNOSIS?: No Plan Time Spent: Greater than 30 Minutes
[2017-04-17 14:23] VITALS: BP 109/54
== END 2017-04-17 15:19 | disposition home health service (06) | DRG 617 ==
LOC: ER 15:31 → EH 22:19 → 4W 04-09 17:31
PROVIDERS: ADMIT Pediatrics; ATTEND Pediatrics
PROC: 0Y6P0Z0 Detachment at Right 1st Toe, Complete, Open Approach (ICD-10-PCS; principal; 2017-04-09 14:00)
PROC: 3E0234Z Introduction of Serum, Toxoid and Vaccine into Muscle, Percutaneous Approach (ICD-10-PCS; 2017-04-17)
DX: E11.69 Type 2 diabetes mellitus with other specified complication (principal); M86.171 Other acute osteomyelitis, right ankle and foot; T87.43 Infection of amputation stump, right lower extremity; L03.115 Cellulitis of right lower limb; L97.514 Non-pressure chronic ulcer of other part of right foot with necrosis of bone; E11.51 Type 2 diabetes mellitus with diabetic peripheral angiopathy without gangrene; E11.42 Type 2 diabetes mellitus with diabetic polyneuropathy; I10 Essential (primary) hypertension; E11.621 Type 2 diabetes mellitus with foot ulcer; D64.9 Anemia, unspecified; B96.1 Klebsiella pneumoniae [K. pneumoniae] as the cause of diseases classified elsewhere; B96.89 Other specified bacterial agents as the cause of diseases classified elsewhere; B95.61 Methicillin susceptible Staphylococcus aureus infection as the cause of diseases classified elsewhere; L30.9 Dermatitis, unspecified; K21.9 Gastro-esophageal reflux disease without esophagitis; Z87.891 Personal history of nicotine dependence; Z89.421 Acquired absence of other right toe(s); Z86.73 Personal history of transient ischemic attack (TIA), and cerebral infarction without residual deficits; Z23 Encounter for immunization; Z86.14 Personal history of Methicillin resistant Staphylococcus aureus infection
CPT/HCPCS: 01480; 36415; 80048; 80053; 82962; 83036; 83735; 85025; 85652; 86140; 87040; 87077; 87186; 88304; 88311; 90686; 93005; 93010; 93306; 96365; 99285; G8978-GP; G8979-GP; G8987-GO; G8988-GO; J0131; J0696; J0743; J1170; J1650; J1815; J2020; J2250; J2405; J2543; J2704; J3010; J3370; J3490; J7030

== ENCOUNTER → 2017-05-27 | Outpatient (CLI) | payer MEDICARE, OTHER ==
--- NOTE | 2017-05-27 16:58 | RADIOLOGY REPORT (SQ) ---
EXAM DESCRIPTION: ARTERIAL LOWER EXTREM BILAT COMPLETED DATE/TIME: 05/27/2017 3:54 pm REASON FOR STUDY: ULCER L97.512 NON-PRS CHRONIC ULCER OTH PRT RIGHT FOOT W FAT LAYER COMPARISON: Lower extremity arterial Doppler 09/21/2014 TECHNIQUE: Dynamic and static parks scale and color images acquired of the lower extremity arteries. Additional selected spectral images recorded. ABIs recorded. LIMITATIONS: None. FINDINGS: RIGHT LEG: ABIS: Not performed, wound VAC on the right foot INFLOW ARTERIES: Normal, no obstruction evident. FEMORAL ARTERIES:Multiphasic waveforms. Normal, no velocity elevation to suggest focal stenosis. Norm al color Doppler evaluation. No aneurysm. POPLITEAL ARTERY:Multiphasic waveforms. Normal, no velocity elevation to suggest focal stenosis. Norm al color Doppler evaluation. No aneurysm. PATENT TIBIOPERONEAL TRUNK AND 3 VESSEL RUNOFF: Yes, normal vessels. TBI: Not performed. OTHER: No other significant finding. LEFT LEG: ABIS: Not performed INFLOW ARTERIES: Normal, no obstruction evident. FEMORAL ARTERIES:Multiphasic waveforms. Normal, no velocity elevation to suggest focal stenosis. Norm al color Doppler evaluation. No aneurysm. POPLITEAL ARTERY:Multiphasic waveforms. Normal, no velocity elevation to suggest focal stenosis. Norm al color Doppler evaluation. No aneurysm. PATENT TIBIOPERONEAL TRUNK AND 3 VESSEL RUNOFF: Yes, normal vessels. TBI: Not performed. OTHER: No other significant finding. IMPRESSION: No Doppler evidence of significant stenosis in the right or left lower extremity arteria l system. COMMENT: [facility] NORMAL: Greater than 1.0 MINIMAL DISEASE: 0.9 to 1.0 CLAUDICATION: 0.5 to 0.9 SEVERE ARTERIAL DISEASE: Less than 0.5 [facility] NORMAL: Greater than 1.0 (1.2 If Heavy Calcifications) NORMAL TO MILD ISCHEMIA: 0.8 to 1.0 MODERATE ISCHEMIA: 0.4 to 0.8 SEVERE ISCHEMIA: Less than 0.4 TECHNICAL DOCUMENTATION: JOB ID: [id number]- All Rights Reserved Reading location - IP/workstation name: [email or web address]
== END ==
LOC: SP 15:05
PROVIDERS: ATTEND Preventive Medicine Undersea and Hyperbaric Medicine
DX: L97.512 Non-pressure chronic ulcer of other part of right foot with fat layer exposed (principal)
CPT/HCPCS: 93925

== ENCOUNTER → 2017-07-04 | Outpatient (CLI) | payer MEDICARE, OTHER ==
[2017-07-04 18:39] LABS: ABSOLUTE BASOPHILS # (AUTO) 0.1 10^3/uL (0.0-0.2); ABSOLUTE EOSINOPHILS # (AUTO) 0.7 10^3/uL (0.0-0.6); ABSOLUTE LYMPHOCYTES (AUTO) 2.3 10^3/uL (0.5-4.7); ABSOLUTE MONOCYTES (AUTO) 0.9 10^3/uL (0.1-1.4); ABSOLUTE NEUT (AUTO) 6.9 10^3/uL (1.7-8.2); BASOPHILS % (AUTO) 0.7 % (0-2); EOSINOPHILS % (AUTO) 6.8 % (0-6); HEMATOCRIT 39.2 % (37.9-51.0); HEMOGLOBIN 13.4 g/dL (13.5-17.0); MEAN CORPUSCULAR HEMOGLOBIN 32.4 pg (27.0-33.4); MEAN CORPUSCULAR HGB CONC 34.3 g/dL (32.0-36.0); MEAN CORPUSCULAR VOLUME 94 fl (80-97); MONOCYTES % (AUTO) 8.1 % (3-13); PLATELET COUNT 242 10^3/uL (150-450); RED BLOOD COUNT 4.15 10^6/uL (4.35-5.55); RED CELL DISTRIBUTION WIDTH 16.5 % (11.5-14.0); SEGMENTED NEUTROPHILS % (AUTO) 63.4 % (42-78); TOTAL CELLS COUNTED % (AUTO) 100 %; WHITE BLOOD COUNT 10.9 10^3/uL (4.0-10.5)
[2017-07-04 19:24] LABS: ALANINE AMINOTRANSFERASE 33 U/L (21-72); ALBUMIN 3.9 g/dL (3.5-5.0); ALKALINE PHOSPHATASE 73 U/L (38-126); ANION GAP 12 (5-19); ASPARTATE AMINO TRANSFERASE 18 U/L (17-59); BILIRUBIN,DIRECT 0.3 mg/dL (0.0-0.4); BILIRUBIN,TOTAL 0.3 mg/dL (0.2-1.3); BLOOD UREA NITROGEN 28 mg/dL (7-20); CALCIUM 9.1 mg/dL (8.4-10.2); CARBON DIOXIDE 30 mmol/L (22-30); CHLORIDE 98 mmol/L (98-107); GLUCOSE 117 mg/dL (75-110); POTASSIUM 4.6 mmol/L (3.6-5.0); SODIUM 139.8 mmol/L (137-145); TOTAL PROTEIN 6.9 g/dL (6.3-8.2)
[2017-07-04 19:27] LABS: ERYTHROCYTE SEDIMENTATION RATE 28 mm/hr (0-20)
[2017-07-04 19:28] LABS: C-REACTIVE PROTEIN < 5.0 mg/L (<10.0)
== END ==
LOC: WC 17:06
PROVIDERS: ATTEND Preventive Medicine Undersea and Hyperbaric Medicine
DX: L97.514 Non-pressure chronic ulcer of other part of right foot with necrosis of bone (principal)
CPT/HCPCS: 36415; 80053; 85025; 85652; 86140